=== PATIENT | female | born 1945 | race Caucasian/White ===

== ENCOUNTER 2017-10-04 15:50 | Emergency (ER) | payer OTHER, MEDICAID ==
[~2017-10-04] VITALS: Ht 170.2 cm; Wt 79.4 kg
[~2017-10-04 15:50] MED LIST: ALBUAER3 IN; ASPI81CH43 PO; ATOR20TA50; BUPR150T6; CARV3.1240; CEL100T PO; FLUO-125; PANTOPRAZOLE PO; SOVALDI PO; TRAM-297 PO; [UNRECOGNIZED DRUG - CODE]
[2017-10-04] MEDS ORDERED: SODIUM CHLORIDE 0.9% 1,000 ML IVB ONE (17:10)
[2017-10-04 18:42] LABS: INR 1.02 (0.9-1.15); Partial Thromboplastin Time 27.5 sec (22.64-33.71); Prothrombin Time 11.1 sec (9.37-12.3)
[2017-10-04 18:46] LABS: Basophils # (auto) 0.1 uL; Eosinophils # (auto) 0.1 uL; Eosinophils % (auto) 1.8 % (0.0-7.0); Hemoglobin 13.5 g/dL (12.2-16.2); Lymphocytes # (auto) 1.5 uL; Lymphocytes % (auto) 28.3 % (10.0-50.0); Mean Corpuscular Hemoglobin 30.6 pg (28.0-32.0); Mean Corpuscular Hgb Conc. 32.9 g/dL (32.0-36.0); Mean Corpuscular Volume 93.1 fL (80.0-100.0); Monocytes # (auto) 0.4 uL; Monocytes % (auto) 7.8 % (0.0-12.0); Neutrophils # (auto) 3.2 uL; Neutrophils % (auto) 61.1 % (37.0-80.0); Nucleated Red Blood Cells % 0.1 %; Platelet Count (auto) 165 10^3/uL (140-450); Red Cell Distribution Width 15.2 % (11.8-14.3); White Blood Cell 5.2 10^3/uL (4.4-10.8)
[2017-10-04 18:58] LABS: Alanine Aminotransferase 25 U/L (13-56); Albumin 3.6 g/dL (3.4-5.0); Alkaline Phosphatase 78 U/L (45-117); Anion Gap 9 (5-15); Aspartate Aminotransferase 28 U/L (15-37); BUN/Creatinine Ratio 22.9; Bilirubin, Total 0.2 mg/dL (0.2-1.0); Blood Urea Nitrogen 22 mg/dL (7-18); Carbon Dioxide 24 mmol/L (21-32); Chloride 108 mmol/L (98-107); GFR African American 73 mL/min; GFR Non-African American 61 mL/min; Glucose 101 mg/dL (74-106); Magnesium 2.1 mg/dL (1.6-2.6); Potassium 3.7 mmol/L (3.5-5.1); Sodium 141 mmol/L (136-145); Total Protein 7.2 g/dL (6.4-8.2)
[2017-10-04 20:08] VITALS: BP 154/94
== END 2017-10-04 20:12 | disposition home or self-care (01) ==
LOC: ER 15:50 → EDBD 15:50 → ER 20:10
DX: R07.89 Other chest pain (principal); F10.129 Alcohol abuse with intoxication, unspecified; E11.9 Type 2 diabetes mellitus without complications; I11.0 Hypertensive heart disease with heart failure; I50.9 Heart failure, unspecified; K21.9 Gastro-esophageal reflux disease without esophagitis; J44.9 Chronic obstructive pulmonary disease, unspecified; E78.5 Hyperlipidemia, unspecified; I25.2 Old myocardial infarction; Z85.71 Personal history of Hodgkin lymphoma; Z86.73 Personal history of transient ischemic attack (TIA), and cerebral infarction without residual deficits; Z79.82 Long term (current) use of aspirin; Z95.810 Presence of automatic (implantable) cardiac defibrillator; Z88.2 Allergy status to sulfonamides; Z88.6 Allergy status to analgesic agent
CPT/HCPCS: 36415; 71045; 80053; 80320; 83735; 83880; 84484; 85025; 85610; 85730; 93005; 94761

== ENCOUNTER 2018-11-05 11:05 | Inpatient (IN) | payer OTHER, MEDICAID | END 2018-11-12 21:40 | disposition home health service (06) | LOC: TELE-WESTW 11-10 14:21 → ER 11:05 → TELE 18:18 → TELE-WESTW 20:17 | DX: A41.9 Sepsis, unspecified organism (principal); E43 Unspecified severe protein-calorie malnutrition; J44.1 Chronic obstructive pulmonary disease with (acute) exacerbation; N39.0 Urinary tract infection, site not specified; I11.0 Hypertensive heart disease with heart failure; I50.9 Heart failure, unspecified; Z85.71 Personal history of Hodgkin lymphoma; E78.5 Hyperlipidemia, unspecified; Z86.73 Personal history of transient ischemic attack (TIA), and cerebral infarction without residual deficits; R55 Syncope and collapse; E11.9 Type 2 diabetes mellitus without complications; F32.9 Major depressive disorder, single episode, unspecified; F41.9 Anxiety disorder, unspecified; I25.2 Old myocardial infarction; I25.10 Atherosclerotic heart disease of native coronary artery without angina pectoris; Z95.810 Presence of automatic (implantable) cardiac defibrillator ==

== ENCOUNTER 2019-05-10 12:27 | Inpatient (IN) | payer OTHER, MEDICAID ==
[~2019-05-10] VITALS: Ht 152.4 cm; Wt 63.5 kg
[~2019-05-10 12:27] MED LIST changes: -ALBUAER3 IN; +ASPI-231 PO; -ASPI81CH43 PO; +ATOR20TA PO; -ATOR20TA50; -BUPR150T6; +BUPR75TA9 PO; -CARV3.1240; +CARV6.25 PO; -CEL100T PO; +ESCI5TAB PO; -FLUO-125; +FURO20TA3 PO; +HYDR-531 PO; +LOSA25TA38 PO; +OMEP20TA PO; -PANTOPRAZOLE PO; -SOVALDI PO; +TIZA2CAP12 PO; -TRAM-297 PO; +TRAZ150T79 PO
[2019-05-10] MEDS ORDERED: methylPREDNISolone SOD SUCC 125 MG/2 ML VL IV ONE (12:45)
[2019-05-10] MEDS ORDERED: IPRATROPIUM BROM 0.5 MG/2.5ML INH SOL NEB ONE (12:45)
[2019-05-10] MEDS ORDERED: ALBUTEROL SULF 2.5 MG/0.5ML(0.5%) NEB SOLN NEB ONE (12:45)
[2019-05-10 13:53] LABS: Basophils # (auto) 0.1 uL; Basophils % (auto) 0.8 % (0.0-2.0); Eosinophils # (auto) 0.2 uL; Hematocrit 39.5 % (36.0-46.0); Hemoglobin 13.8 g/dL (12.2-16.2); Lymphocytes # (auto) 1.4 uL; Lymphocytes % (auto) 17.6 % (10.0-50.0); Mean Corpuscular Hemoglobin 31.1 pg (28.0-32.0); Mean Corpuscular Hgb Conc. 34.9 g/dL (32.0-36.0); Monocytes # (auto) 0.8 uL; Monocytes % (auto) 10.2 % (0.0-12.0); Neutrophils # (auto) 5.5 uL; Neutrophils % (auto) 69.4 % (37.0-80.0); Nucleated Red Blood Cells % 0.3 %; Platelet Count (auto) 143 10^3/uL (140-450); Red Blood Cells 4.44 10^6/uL (4.0-5.20)
[2019-05-10 14:10] LABS: Albumin 3.7 g/dL (3.4-5.0); Anion Gap 4 (5-15); Blood Urea Nitrogen 21 mg/dL (7-18); Calcium 10.2 mg/dL (8.5-10.1); Carbon Dioxide 34 mmol/L (21-32); Chloride 104 mmol/L (98-107); Glucose 99 mg/dL (74-106); Potassium 3.5 mmol/L (3.5-5.1); Sodium 142 mmol/L (136-145)
[2019-05-10 14:12] LABS: INR 1.09 (0.9-1.15); Partial Thromboplastin Time 28.8 sec (23.64-32.05)
[2019-05-10 14:15] LABS: Alanine Aminotransferase 18 U/L (13-56); Alkaline Phosphatase 77 U/L (45-117); Aspartate Aminotransferase 18 U/L (15-37); BUN/Creatinine Ratio 15.9; Bilirubin, Total 0.5 mg/dL (0.2-1.0); GFR African American 51 mL/min; GFR Non-African American 42 mL/min; Total Protein 7.2 g/dL (6.4-8.2)
[2019-05-10] MEDS ORDERED: NITROGLYCERIN 0.4 MG SL TAB SL PRN (16:30)
[2019-05-10] MEDS ORDERED: NITROGLYCERIN 0.2MG/HR TOPICAL PATCH TD ONE (16:30)
[2019-05-10] MEDS ORDERED: MORPHINE SULF INJ 2 MG/ML SYRINGE 1ML IV PRN (16:30)
[2019-05-10 17:15] VITALS: BP 121/86
--- NOTE | 2019-05-10 17:30 | NUR ---
PT ADMITTED TO RM 248A PER GURNEY FROM ER ACCOMPANIED BY ER TRANSPORT WITH C/O SOB X 2 DAYS. PT NOTED TO BE AAOX4 AND REQUIRED ASSIST IN AMBULATING. PT ON TELE#24 PACED 75 PT ORIENTATED TO STAFF, UNIT AND ROUTINE. ADMISSION ASSESSMENT DONE AND CHARTED. PLAN OF CARE, MEDS, TREATMENTS AND SAFETY DISCUSSED WITH PT AND PT VERBALIZED UNDERSTANDING. PT PUT ON O2 AT 3L/NC PT C/O SOB. WILL CONTINUE TO MONITOR PT ENDORSE PT TO INCOMING RN.
[2019-05-10 17:55] VITALS: BP 140/64
[2019-05-10] MEDS ORDERED: ALBUTEROL SULF 2.5 MG/0.5ML(0.5%) NEB SOLN NEB SCH (18:00)
[2019-05-10] MEDS: HYDROcodone-ACET 10/325MG TAB PO PRN (18:32)
[2019-05-10] MEDS: IPRATROPIUM BROM 0.5 MG/2.5ML INH SOL NEB SCH (19:02)
[2019-05-10] MEDS: BUDESONIDE (INHALATION) 0.5 MG/2 ML NEB NEB SCH (19:02)
[2019-05-10] MEDS: LEVALBUTEROL HCL 1.25 MG/3 ML NEB NEB SCH (19:02)
--- NOTE | 2019-05-10 19:02 | NUR ---
RT NOTE PT WAS SEEN BY RT FOR HHN TX. PT TOLERATES WELL VIA MASK. NO ADVERSE REACTION NOTED. CONT ORDERED Addendum: 05/10/19 at 1911 by Dionne Snow RT Amended: Links added.
--- NOTE | 2019-05-10 19:45 | NUR ---
RECEIVED PATIENT IN BED, AAOX4. NO DISTRESS NOTED. AFEBRILE. DENIES PAIN. MILD SOB NOTED ON EXERTION. WHEEZES NOTED ON LUNG BASES. INTRODUCED MYSELF TO THE PATIENT. ORIENTATION GIVEN. POCS DISCUSSED WITH PATIENT AND SHOWED UNDERSTANDING. BED KEPT ON LOWEST POSITION. SIDE RAILS UP. CALL LIGHT/TABLE IN REACH. KEPT COMFORTABLE.
[2019-05-10] MEDS: CARVEDILOL 3.125 MG TAB PO SCH (20:23)
[2019-05-10] MEDS: ATORVASTATIN 20 MG TAB PO SCH (20:23)
[2019-05-10] MEDS ORDERED: TRAM50TA2 PO (20:24)
[2019-05-10 21:41] VITALS: BP 116/95
--- NOTE | 2019-05-10 23:00 | NUR ---
PATIENT IS VERY ANXIOUS AND WANTED A SLEEPING PILL. PAGED MD. AWAITING CALL BACK.
[2019-05-11] MEDS: LEVALBUTEROL HCL 1.25 MG/3 ML NEB NEB SCH ×6 (00:13→19:07)
[2019-05-11] MEDS: IPRATROPIUM BROM 0.5 MG/2.5ML INH SOL NEB SCH ×6 (00:13→19:07)
--- NOTE | 2019-05-11 00:14 | NUR ---
RT NOTE PT WAS SEEN BY RT FOR HHN TX. PT IS AWAKE BUT IS REQUESTING TO HOLD TX UNTIL MORNING SO THAT SHE CAN GO TO SLEEP. NO SOB OR DISTRESS NOTED. HR 71, RR 18, BS CLEAR/DIM, POX 88% ON ROOM AIR, PLACED PT BACK ON 3L NASAL CANNULA. PT REQUESTING CRACKERS AT THIS TIME WELL. EL TEJADA MADE AWARE OF PT REQUEST FOR CRACKERS AND PT REFUSAL OF TX AT THIS TIME. RN WILL CALL IF PT CHANGES HER MIND. MEDICATION WAS RETURNED TO [facility]. CONT ORDERED Addendum: 05/11/19 at 0024 by Dionne Snow RT Amended: Links added.
[2019-05-11 05:33] VITALS: BP 125/87
[2019-05-11] MEDS: BUDESONIDE (INHALATION) 0.5 MG/2 ML NEB NEB SCH ×2 (06:09→18:57)
--- NOTE | 2019-05-11 06:12 | NUR ---
ON BED, ASLEEP. STABLE. NO DISTRESS NOTED. FOR MORE CARE AND MANAGEMENT.
--- NOTE | 2019-05-11 07:45 | NUR ---
INITIAL ASSESSMENT FINDS ALERT TALKATIVE. C/O SORENESS IN CHEST AND FREQUENT COUGH. EXPIRATORY WHEEZING HEARD. LOWER EXTREMITIES FREE OF EDEMA. STRONG PEDAL PULSES. RESPIRATIONS EASY, NON LABORED. 3L NC. EXPLAINED POC. REASSURANCE PROVIDED. Addendum: 05/11/19 at 0829 by Casper Arzate RN LAST ENTRY IN ERROR AT 0822. ENTERED ON WRONG PTS CHART. INITIAL ASSESSMENT FINDS ALERT CALM APPROPRIATE. LUNG SOUNDS CLEAR. C/O SORENESS AROUND CHEST WALL WITH FREQUENT COUGHING. STATES SHE HAS HISTORY OF SEASONAL BRONCHITIS AT THIS TIME OF THE YEAR. LOWER EXTREMITIES HAVE PITTING EDEMA. PEDAL PULSES PRESENT. EXPLAINED TROPONIN LEVELS. POC. PENDING ECHO PLANNED. REASSURED GOAL IS TO DC HOME WHEN APPROPRIATE.
[2019-05-11 09:00] VITALS: BP 141/99
--- NOTE | 2019-05-11 09:49 | NUR ---
RESTFUL NO DISTRESS.
--- NOTE | 2019-05-11 10:15 | NUR ---
C/O DIFF BREATHING. AUDIBLE EXPIRATORY WHEEZING HEARD. RT PAGED AND RESPONDS TO ROOM. HAS BEEN UP TO BR WITH OUT O2. SOB AT REST UNABLE TO COMPLETE SENTENCE. OS SAT 92%. UPPER AIRWAY CONSTRICTED. RT STATES NO PRN RESCUE TREATMENTS ORDERED. HEART SURGEON HOSPITALIST PAGED. DR. RAYA COMES TO BEDSIDE. ORDERS IV SOLUMEDROL NOW.
[2019-05-11] MEDS ORDERED: methylPREDNISolone SOD SUCC 125 MG/2 ML VL IV ONE (10:30)
--- NOTE | 2019-05-11 10:36 | NUR ---
BEDSIDE ECHO IN PROGRESS. C/O CHEST PAIN RADIATING DOWN HER ARM. STATES IT FEELS LIKE HEART PACEMAKER IS NOT WORKING. REASSURANCE NEEDED AND GIVEN CARDIAC RHYTHM SHOWS AV PACED. 70.
[2019-05-11] MEDS ORDERED: LEVALBUTEROL HCL 1.25 MG/3 ML NEB NEB PRN (10:45)
[2019-05-11] MEDS ORDERED: IPRATROPIUM BROM 0.5 MG/2.5ML INH SOL NEB PRN (10:45)
[2019-05-11] MEDS: HYDROcodone-ACET 10/325MG TAB PO PRN (11:18)
[2019-05-11] MEDS: ESCITALOPRAM OXALATE 5 MG PO SCH (11:21)
[2019-05-11] MEDS: LOSARTAN POTASSIUM 25 MG TAB PO SCH (11:22)
[2019-05-11] MEDS: ASPirin-EC 81 mg tab PO SCH (11:24)
[2019-05-11] MEDS: CARVEDILOL 3.125 MG TAB PO SCH ×2 (11:24→20:56)
[2019-05-11] MEDS: FUROSEMIDE 20 MG TAB PO SCH (11:25)
[2019-05-11] MEDS: ENOXAPARIN SOD 40 MG/0.4 ML SYRINGE SC SCH (11:25)
[2019-05-11] MEDS: PANTOPRAZOLE 40 MG TAB PO SCH (11:26)
[2019-05-11] MEDS: buPROPion HCL 75 MG TAB PO SCH (11:26)
[2019-05-11] MEDS: NITROGLYCERIN 0.2MG/HR TOPICAL PATCH TD SCH (11:27)
--- NOTE | 2019-05-11 12:13 | NUR ---
DOES NOT TOLERATE ACTIVITY UP TO BR
[2019-05-11 13:00] VITALS: BP 126/64
[2019-05-11] MEDS: SODIUM CHLORIDE 0.9% 1,000 ML IV SCH (13:13)
--- NOTE | 2019-05-11 13:15 | NUR ---
DR. RAYA CALLS AFTER MULTIPLE ATTEMPTS TO CONTACT HER. MADE AWARE OF COUGHING EPISODES THAT RESULT IN UPPER AIRWAY CLOSING. NEW ORDERS GIVEN. IF PT DOES NOT RESPOND AND CONTINUES TO BE SYMPTOMATIC TRANSFER TO [facility].
[2019-05-11] MEDS ORDERED: LORazepam 2MG/ML-1ML VIAL IM ONE (13:30)
[2019-05-11] MEDS ORDERED: CLOPIDOGREL BISULFATE 75 MG TAB PO ONE (15:00)
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
[2019-05-11 17:00] VITALS: BP 125/56
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
--- NOTE | 2019-05-11 19:07 | NUR ---
Respiratory note: PT REFUSE NEXT SCHEDULED MED NEB AT THIS TIME
--- NOTE | 2019-05-11 19:25 | NUR ---
Opening Shift Note Assumed care of patient, awake and alert. No S/S of distress/SOB or pain. Bed in lowest locked position, side rails up x2, call light within reach. Instructed on POC and to call for assist PRN, will continue to monitor for changes Q1hr and PRN.
[2019-05-11] MEDS: ATORVASTATIN 20 MG TAB PO SCH (20:55)
[2019-05-11] MEDS: methylPREDNISolone SOD SUCC 40 MG/ML VL IV SCH (20:55)
[2019-05-11] MEDS: THROAT LOZENGES(CEPASTAT) MT PRN ×2 (20:57→23:01)
[2019-05-11 22:00] VITALS: BP 140/76
--- NOTE | 2019-05-11 22:00 | NUR ---
Hospitalist Paged Patient takes Trazodone 150 mg PO at hour of sleep at home for insomnia. Patient requesting continuation of this medication to help her sleep. No orders for this medication or any sleeping medication noted at this time. call center professional hospitalist paged, awaiting call back at this time.
--- NOTE | 2019-05-11 22:38 | NUR ---
Hospitalist Returned Page body recall instructor hospitalist Sancho Wade FROG FARMER returned page, new order received for Temazepam 15 mg PO one time dose. Order read back and verified, will implement as ordered and continue to monitor.
[2019-05-11] MEDS ORDERED: TEMAZEPAM 15 MG CAP PO ONE ×2 (22:45)
[2019-05-12] MEDS: THROAT LOZENGES(CEPASTAT) MT PRN ×2 (01:32→03:45)
[2019-05-12] MEDS: HYDROcodone-ACET 10/325MG TAB PO PRN ×2 (01:32→16:49)
[2019-05-12] MEDS: methylPREDNISolone SOD SUCC 40 MG/ML VL IV SCH (02:42)
[2019-05-12] MEDS: SODIUM CHLORIDE 0.9% 1,000 ML IV SCH (02:49)
[2019-05-12 05:00] VITALS: BP 150/69
[2019-05-12 06:41] LABS: Basophils # (auto) 0 uL; Basophils % (auto) 0.1 % (0.0-2.0); Eosinophils # (auto) 0 uL; Hematocrit 34.5 % (36.0-46.0); Hemoglobin 11.6 g/dL (12.2-16.2); Lymphocytes # (auto) 0.6 uL; Lymphocytes % (auto) 4.2 % (10.0-50.0); Mean Corpuscular Hemoglobin 30.8 pg (28.0-32.0); Mean Corpuscular Hgb Conc. 33.8 g/dL (32.0-36.0); Mean Corpuscular Volume 91.2 fL (80.0-100.0); Monocytes # (auto) 0.5 uL; Monocytes % (auto) 3.4 % (0.0-12.0); Neutrophils # (auto) 12.5 uL; Neutrophils % (auto) 92.3 % (37.0-80.0); Nucleated Red Blood Cells % 0.1 %; Platelet Count (auto) 123 10^3/uL (140-450); Red Blood Cells 3.78 10^6/uL (4.0-5.20); Red Cell Distribution Width 15.1 % (11.8-14.3); White Blood Cell 13.6 10^3/uL (4.4-10.8)
[2019-05-12] MEDS: IPRATROPIUM BROM 0.5 MG/2.5ML INH SOL NEB SCH ×4 (06:44→20:36)
[2019-05-12] MEDS: BUDESONIDE (INHALATION) 0.5 MG/2 ML NEB NEB SCH ×3 (06:44→20:36)
[2019-05-12] MEDS: LEVALBUTEROL HCL 1.25 MG/3 ML NEB NEB SCH ×4 (06:44→20:36)
[2019-05-12 06:47] LABS: Chloride 104 mmol/L (98-107); Sodium 139 mmol/L (136-145)
[2019-05-12 06:57] LABS: Alanine Aminotransferase 22 U/L (13-56); Albumin 3.2 g/dL (3.4-5.0); Alkaline Phosphatase 64 U/L (45-117); Anion Gap 5 (5-15); Aspartate Aminotransferase 22 U/L (15-37); BUN/Creatinine Ratio 24.3; Bilirubin, Total 0.2 mg/dL (0.2-1.0); Blood Urea Nitrogen 25 mg/dL (7-18); Calcium 10.5 mg/dL (8.5-10.1); Carbon Dioxide 30 mmol/L (21-32); Cholesterol 100 mg/dL (< 200); GFR African American 67 mL/min; GFR Non-African American 56 mL/min; Glucose 154 mg/dL (74-106); HDL Cholesterol 60 mg/dL (40-59); LDL Cholesterol 35 mg/dL (< 100); Magnesium 1.9 mg/dL (1.6-2.6); Total Protein 6.4 g/dL (6.4-8.2); Triglycerides 71 mg/dL (< 150)
--- NOTE | 2019-05-12 07:30 | NUR ---
Opening Shift Note Assumed care of patient, awake and alert. No S/S of distress/SOB or pain. Instructed on POC and to call for assist PRN, will continue to monitor for changes Q1hr and PRN.
--- NOTE | 2019-05-12 07:40 | NUR ---
Closing Note Patient lying in bed, awake and alert. Bed in lowest locked position, side rails up x2, call light within reach. No s/s of distress. Care endorsed to dayshift RN.
--- NOTE | 2019-05-12 08:00 | NUR ---
Dr. Juarez in to see patient as hospitalist.
[2019-05-12] MEDS: LORazepam 2MG/ML-1ML VIAL IV PRN ×2 (08:04→20:24)
[2019-05-12] MEDS ORDERED: MAGNESIUM SULFATE 1GM/100ML 100 ML IV ONE (08:15)
[2019-05-12 08:59] VITALS: BP 153/83
[2019-05-12] MEDS: ENOXAPARIN SOD 40 MG/0.4 ML SYRINGE SC SCH (10:00)
[2019-05-12] MEDS: NITROGLYCERIN 0.2MG/HR TOPICAL PATCH TD SCH (10:00)
[2019-05-12] MEDS: ESCITALOPRAM OXALATE 5 MG PO SCH (10:00)
[2019-05-12] MEDS: ASPirin-EC 81 mg tab PO SCH (10:00)
[2019-05-12] MEDS: PANTOPRAZOLE 40 MG TAB PO SCH (10:01)
[2019-05-12] MEDS: FUROSEMIDE 20 MG TAB PO SCH (10:01)
[2019-05-12] MEDS: CLOPIDOGREL BISULFATE 75 MG TAB PO SCH (10:01)
[2019-05-12] MEDS: CARVEDILOL 3.125 MG TAB PO SCH ×2 (10:01→22:23)
[2019-05-12] MEDS: LOSARTAN POTASSIUM 25 MG TAB PO SCH (10:02)
[2019-05-12] MEDS: buPROPion HCL 75 MG TAB PO SCH (10:02)
[2019-05-12] MEDS: methylPREDNISolone SOD SUCC 125 MG/2 ML VL IV SCH ×2 (10:47→16:48)
[2019-05-12] MEDS: guaiFENesin-DM 100/10mg/5ml SYR PO PRN ×2 (11:17→19:40)
[2019-05-12 13:10] VITALS: BP 159/81
--- NOTE | 2019-05-12 16:00 | NUR ---
IV right hand out. IV restart attempted X 2 without success. Charge nurse, dave Snell.
--- NOTE | 2019-05-12 16:30 | NUR ---
IV insertion IV access obtained, via clean sterile technique by inserting 22 gauge catheter at right wrist after 2 attempts. IV secured properly. No trauma to site. Patient tolerated procedure well. IV started by Pinky Christianson RN.
[2019-05-12 16:34] VITALS: BP 153/77
--- NOTE | 2019-05-12 19:30 | NUR ---
Opening Shift Note Assumed care of patient, awake and alert. No S/S of distress/SOB. Patient is still c/o chronic pain 6 of 10 and occasional cough. Instructed on POC and to call for assist PRN, will continue to monitor for changes Q1hr and PRN.
[2019-05-12 21:44] VITALS: BP 160/74
[2019-05-12] MEDS: ATORVASTATIN 20 MG TAB PO SCH (22:24)
[2019-05-12] MEDS: traZODone HCL 50 MG TAB PO SCH (22:24)
[2019-05-13] VITALS (7 sets, daily range): BP systolic 142–165; BP diastolic 66–94
[2019-05-13] MEDS: SODIUM CHLORIDE 0.9% 1,000 ML IV SCH ×2 (00:26→12:58)
[2019-05-13] MEDS: IPRATROPIUM BROM 0.5 MG/2.5ML INH SOL NEB SCH ×4 (00:39→19:06)
[2019-05-13] MEDS: LEVALBUTEROL HCL 1.25 MG/3 ML NEB NEB SCH ×4 (00:40→19:06)
[2019-05-13] MEDS: methylPREDNISolone SOD SUCC 125 MG/2 ML VL IV SCH ×3 (01:40→16:33)
[2019-05-13] MEDS: HYDROcodone-ACET 10/325MG TAB PO PRN ×3 (03:04→19:51)
[2019-05-13] MEDS: guaiFENesin-DM 100/10mg/5ml SYR PO PRN ×2 (03:04→16:48)
[2019-05-13 06:44] LABS: Hematocrit 33.4 % (36.0-46.0); Hemoglobin 11.3 g/dL (12.2-16.2); Mean Corpuscular Hemoglobin 31.1 pg (28.0-32.0); Mean Corpuscular Hgb Conc. 33.9 g/dL (32.0-36.0); Mean Corpuscular Volume 91.6 fL (80.0-100.0); Platelet Count (auto) 120 10^3/uL (140-450); Red Blood Cells 3.65 10^6/uL (4.0-5.20); Red Cell Distribution Width 15.1 % (11.8-14.3); White Blood Cell 11.2 10^3/uL (4.4-10.8)
[2019-05-13 07:02] LABS: Calcium 9.8 mg/dL (8.5-10.1); Potassium 3.4 mmol/L (3.5-5.1)
[2019-05-13 07:04] LABS: BUN/Creatinine Ratio 24.5
[2019-05-13] MEDS: BUDESONIDE (INHALATION) 0.5 MG/2 ML NEB NEB SCH ×2 (07:05→19:06)
[2019-05-13 07:08] LABS: Band Neutrophils % (manual) 0; Basophils % (manual) 0 (0.0-2.0); Blast Cells 0; Eosinophils % (manual) 0 (0-7); Myelocytes % 0; Promyelocytes % 0; Reactive Lymphocytes 0
--- NOTE | 2019-05-13 07:42 | NUR ---
OPENING NOTE Assumed care of patient from NOC RNDillon. Patient awake and alert with no S/S of distress/SOB. C/O generalized pain 6/10 on adult pain scale, will administer prn pain medications as ordered. Instructed on POC and to call for assist PRN, verbalized understanding. Bed in lowest, locked position with side rails up x2. Fall precautions in place and call light within reach. Will continue to monitor for changes Q1hr and PRN.
[2019-05-13 07:43] LABS: Lymphocytes % (manual) 3 (10.0-50.0); Metamyelocytes % 1; Monocytes % (manual) 5 (0-12)
[2019-05-13] MEDS: ESCITALOPRAM OXALATE 5 MG PO SCH (09:43)
[2019-05-13] MEDS: ASPirin-EC 81 mg tab PO SCH (09:44)
[2019-05-13] MEDS: LOSARTAN POTASSIUM 25 MG TAB PO SCH (09:44)
[2019-05-13] MEDS: CARVEDILOL 3.125 MG TAB PO SCH (09:44)
[2019-05-13] MEDS: NITROGLYCERIN 0.2MG/HR TOPICAL PATCH TD SCH (09:45)
[2019-05-13] MEDS: PANTOPRAZOLE 40 MG TAB PO SCH (09:45)
[2019-05-13] MEDS: FUROSEMIDE 20 MG TAB PO SCH (09:45)
[2019-05-13] MEDS: buPROPion HCL 75 MG TAB PO SCH (09:45)
[2019-05-13] MEDS: ENOXAPARIN SOD 40 MG/0.4 ML SYRINGE SC SCH (09:45)
[2019-05-13] MEDS: CLOPIDOGREL BISULFATE 75 MG TAB PO SCH (09:45)
--- NOTE | 2019-05-13 11:22 | NUR ---
CARDIO Paged commissioning manager distribution accounting clerk per Dr. Juarez's request regarding Pacemaker interrogation.
[2019-05-13] MEDS ORDERED: LEVOFLOXACIN 500MG 100 ML IV ONE (11:45)
[2019-05-13] MEDS ORDERED: POTASSIUM CHL 20 Meq TABLET PO ONE (11:45)
[2019-05-13] MEDS: LORazepam 2MG/ML-1ML VIAL IV PRN (12:57)
--- NOTE | 2019-05-13 16:15 | NUR ---
PAGED Patient c/o right lower quadrant pain that radiates to umbilicus. States pain 10/10 on adult pain scale, "it's been hurting for a couple of days, that's why I haven't been able to poop...it hurts too bad to push". Dr. Juarez paged, awaiting call back.
[2019-05-13] MEDS: hydrALAZINE HCL 20 MG/ML VL IV PRN (16:34)
--- NOTE | 2019-05-13 16:35 | NUR ---
IV Patient's IV infiltrated, left room to gather supplies to remove IV and reentered to find the IV laying on the patient's bed. Patient states "it just came out when I tried to get up", catheter intact and pressure dressing was applied. New IV access obtained, via clean sterile technique by inserting 22 gauge catheter at right forearm after 1 attempt. IV secured properly. No trauma to site. Patient tolerated well.
--- NOTE | 2019-05-13 16:42 | NUR ---
PAGED Re-paged Dr. Juarez regarding abdominal pain, awaiting call back.
--- NOTE | 2019-05-13 16:58 | NUR ---
Attempted PT treatment. Pt refused stating she has too much pain in her abdomen and she was just out of bed to go to the bathroom so she does not want to move anymore. Will attempt again tomorrow.
--- NOTE | 2019-05-13 17:10 | NUR ---
PAGED ton container shipper hospitalist paged regarding abdominal pain, awaiting call back.
--- NOTE | 2019-05-13 17:22 | NUR ---
AWARE Received call back from virtualization consultant hospitalist, Eusebio Estrada DIRECT SELLING COUNSELOR, new orders received.
[2019-05-13] MEDS: LACTULOSE 20Gm/30ML SOLN PO PRN (17:44)
--- NOTE | 2019-05-13 18:27 | NUR ---
AWARE orthopedically impaired teacher hospitalist, Eusebio Estrada DRESSMAKER OR TAILOR, aware of abdominal CT results. No new orders at this time.
--- NOTE | 2019-05-13 20:00 | NUR ---
Opening Shift Note Assumed care of patient, awake and alert. Patient complained of back, bilateral knee and abdominal pain 8/10 on 1-10 pain scale. Patient medicated with Camby as ordered. Instructed on POC and to call for assist PRN, will continue to monitor for changes Q1hr and PRN. Call light in reach bed in low position.
[2019-05-13] MEDS: traZODone HCL 50 MG TAB PO SCH (21:04)
[2019-05-13] MEDS: DOCUSATE SOD 100 MG CAP PO SCH (21:05)
[2019-05-13] MEDS: ATORVASTATIN 20 MG TAB PO SCH (21:05)
[2019-05-13] MEDS: CARVEDILOL 12.5 MG TAB PO SCH (21:07)
[2019-05-14] MEDS: LEVALBUTEROL HCL 1.25 MG/3 ML NEB NEB SCH ×4 (00:34→19:12)
[2019-05-14] MEDS: IPRATROPIUM BROM 0.5 MG/2.5ML INH SOL NEB SCH ×4 (00:35→19:12)
[2019-05-14] MEDS: methylPREDNISolone SOD SUCC 125 MG/2 ML VL IV SCH ×2 (00:37→10:42)
[2019-05-14] MEDS: guaiFENesin-DM 100/10mg/5ml SYR PO PRN (00:38)
[2019-05-14] MEDS: HYDROcodone-ACET 10/325MG TAB PO PRN ×3 (00:55→20:30)
--- NOTE | 2019-05-14 01:35 | NUR ---
PT SEEN FOR SCHEDULED NEB TX TONIGHT AND BOTH TIMES PT WAS NOT WEARING 4L NC WITH SPO2 86-88%. PT STATED THAT SHE HAD TO GO TO THE REST ROOM. PT PLACED BACK ON NC, SPO2 98%.
[2019-05-14 05:00] VITALS: BP 144/80
[2019-05-14] MEDS: SODIUM CHLORIDE 0.9% 1,000 ML IV SCH ×2 (05:43→22:00)
[2019-05-14] MEDS: BUDESONIDE (INHALATION) 0.5 MG/2 ML NEB NEB SCH ×2 (06:28→19:12)
--- NOTE | 2019-05-14 06:28 | NUR ---
RT NOTE: WENT TO PTS ROOM TO ADMINISTER BREATHING TX, PT STATED THAT SHE DID NOT WANT THE TX AT THIS TIME AND THAT HER BREATHING WAS FINE, NO S/S OF SOB. HR 68, RR 18, SPO2 94% ON 5L NC. WILL CONTINUE TO MONITOR PT.
[2019-05-14 06:35] LABS: Basophils # (auto) 0.1 uL; Basophils % (auto) 0.4 % (0.0-2.0); Eosinophils # (auto) 0 uL; Hematocrit 33.6 % (36.0-46.0); Hemoglobin 11.5 g/dL (12.2-16.2); Lymphocytes # (auto) 0.6 uL; Lymphocytes % (auto) 5.2 % (10.0-50.0); Mean Corpuscular Hemoglobin 30.8 pg (28.0-32.0); Mean Corpuscular Hgb Conc. 34.3 g/dL (32.0-36.0); Mean Corpuscular Volume 89.8 fL (80.0-100.0); Monocytes # (auto) 0.7 uL; Monocytes % (auto) 5.9 % (0.0-12.0); Neutrophils # (auto) 10.3 uL; Neutrophils % (auto) 88.5 % (37.0-80.0); Platelet Count (auto) 107 10^3/uL (140-450); Red Blood Cells 3.75 10^6/uL (4.0-5.20); Red Cell Distribution Width 15.4 % (11.8-14.3); White Blood Cell 11.7 10^3/uL (4.4-10.8)
--- NOTE | 2019-05-14 06:53 | NUR ---
Closing Note: Patient resting comfortably. No acute distress noted.
[2019-05-14 07:05] LABS: Potassium 3.4 mmol/L (3.5-5.1)
[2019-05-14 07:09] LABS: BUN/Creatinine Ratio 21.2; Calcium 10.2 mg/dL (8.5-10.1)
--- NOTE | 2019-05-14 07:21 | NUR ---
OPENING NOTE Assumed care of patient from NOC RN. Patient resting in bed with eyes closed, even rise and fall of chest noted. No S/S of distress/SOB or pain. Bed in lowest, locked position with side rails up x2. Fall precautions in place and call light within reach. Will continue to monitor for changes Q1hr and PRN.
[2019-05-14 09:00] VITALS: BP 156/82
[2019-05-14] MEDS ORDERED: LEVOFLOXACIN 500MG 100 ML IV SCH (10:00)
[2019-05-14] MEDS: ESCITALOPRAM OXALATE 5 MG PO SCH (10:42)
[2019-05-14] MEDS: DOCUSATE SOD 100 MG CAP PO SCH ×2 (10:42→22:04)
[2019-05-14] MEDS: LOSARTAN POTASSIUM 25 MG TAB PO SCH (10:43)
[2019-05-14] MEDS: ASPirin-EC 81 mg tab PO SCH (10:43)
[2019-05-14] MEDS: FUROSEMIDE 20 MG TAB PO SCH (10:43)
[2019-05-14] MEDS: CARVEDILOL 12.5 MG TAB PO SCH ×2 (10:43→22:09)
[2019-05-14] MEDS: buPROPion HCL 75 MG TAB PO SCH (10:44)
[2019-05-14] MEDS: ENOXAPARIN SOD 40 MG/0.4 ML SYRINGE SC SCH (10:44)
[2019-05-14] MEDS: CLOPIDOGREL BISULFATE 75 MG TAB PO SCH (10:44)
[2019-05-14] MEDS: PANTOPRAZOLE 40 MG TAB PO SCH (10:44)
[2019-05-14] MEDS: LACTULOSE 20Gm/30ML SOLN PO PRN (10:44)
--- NOTE | 2019-05-14 12:10 | NUR ---
Nutrition Assessment Notes please see attached link for complete assessment Est. Needs BW 64 k-1600kcal (23-25 kcal/kgBW), 63-70gms pro (1.0-1.1 gms/kgBW). Will continue to monitor pertinent labs and reassess nutrient need prn Addendum: 05/14/19 at [address] Amended: Links added.
--- NOTE | 2019-05-14 12:30 | NUR ---
RT NOTE: WENT TO PTS ROOM TO ADMINISTER BREATHING TX, PT STATED THAT SHE DID NOT WANT THE TX AT THIS TIME AND THAT HER BREATHING WAS FINE, NO S/S OF SOB. RN MADE AWARE OF REFUSAL. HR 69, RR 18, SPO2 9% ON 4L NC. WILL CONTINUE TO MONITOR PT.
--- NOTE | 2019-05-14 12:38 | NUR ---
RT Per RT, Boni, patient refused breathing treatment.
[2019-05-14 13:00] VITALS: BP 127/59
[2019-05-14] MEDS ORDERED: POTASSIUM CHL 20 Meq TABLET PO ONE (13:30)
--- NOTE | 2019-05-14 14:19 | NUR ---
Attempted PT treatment but pt refused. She states she was already sitting up in a chair today and just wants to rest. Will attempt again tomorrow.
[2019-05-14] MEDS: PIPERACILLIN-TAZOB 3.375GM 100 ML IV SCH ×2 (16:10→20:14)
--- NOTE | 2019-05-14 16:10 | NUR ---
IV Journeyman Electrician Pv Installer, Hannah, entered patient's room to find the upper part of the bedding saturated in blood. After assessment, it was noted that the IV became dislodged. Catheter remained intact and pressure dressing applied. New IV access obtained, via clean sterile technique by inserting 20 gauge catheter at left outer forearm after 2 attempts. IV secured properly. No trauma to site. Patient tolerated well.
[2019-05-14] MEDS: methylPREDNISolone SOD SUCC 40 MG/ML VL IV SCH (16:11)
[2019-05-14] MEDS: LORazepam 2MG/ML-1ML VIAL IV PRN (16:32)
[2019-05-14 17:00] VITALS: BP 131/74
[2019-05-14] MEDS ORDERED: IOHEXOL 300 MG/ML 100ML BOTTLE IJ ONE (18:01)
--- NOTE | 2019-05-14 18:05 | NUR ---
OFF UNIT Patient taken off unit via wheelchair for CT scan. No S/S of distress noted.
--- NOTE | 2019-05-14 20:00 | NUR ---
Opening Shift Note Assumed care of patient, awake and alert. Resp even and unlabored with expiratory wheezes. No SOB. Patient complains of chronic knee and back pain. Instructed on POC and to call for assist PRN, will continue to monitor for changes Q1hr and PRN.
[2019-05-14 22:00] VITALS: BP 131/59
[2019-05-14] MEDS: traZODone HCL 50 MG TAB PO SCH (22:04)
[2019-05-14] MEDS: ATORVASTATIN 20 MG TAB PO SCH (22:09)
[2019-05-15] MEDS: LEVALBUTEROL HCL 1.25 MG/3 ML NEB NEB SCH ×5 (00:01→23:44)
[2019-05-15] MEDS: IPRATROPIUM BROM 0.5 MG/2.5ML INH SOL NEB SCH ×5 (00:01→23:44)
[2019-05-15] MEDS: methylPREDNISolone SOD SUCC 40 MG/ML VL IV SCH ×3 (00:04→20:17)
[2019-05-15] MEDS: PIPERACILLIN-TAZOB 3.375GM 100 ML IV SCH ×4 (01:32→20:16)
[2019-05-15] MEDS: HYDROcodone-ACET 10/325MG TAB PO PRN ×2 (01:45→16:42)
--- NOTE | 2019-05-15 03:30 | NUR ---
New IV started to right hand with 22 guage angiocath after 2 attempts. Old IV left upper arm noted with leakage
[2019-05-15] MEDS: LORazepam 2MG/ML-1ML VIAL IV PRN ×3 (03:36→22:37)
--- NOTE | 2019-05-15 04:50 | NUR ---
Patient b/p's 163/83. Medicated with Hydralazine 10 Mg IVP.
[2019-05-15 05:00] VITALS: BP 178/87
[2019-05-15] MEDS: hydrALAZINE HCL 20 MG/ML VL IV PRN ×2 (05:05→17:00)
[2019-05-15] MEDS: BUDESONIDE (INHALATION) 0.5 MG/2 ML NEB NEB SCH ×2 (06:05→18:30)
--- NOTE | 2019-05-15 07:26 | NUR ---
OPENING NOTE Assumed care of patient from NOC RN, Nimisha. Patient resting in bed with eyes closed, even rise and fall of chest noted. No S/S of distress/SOB or pain. Bed in lowest, locked position with side rails up x2. Fall precautions in place and call light within reach. Will continue to monitor for changes Q1hr and PRN.
[2019-05-15 07:29] LABS: Hematocrit 34.9 % (36.0-46.0); Hemoglobin 11.9 g/dL (12.2-16.2); Mean Corpuscular Hemoglobin 31.3 pg (28.0-32.0); Mean Corpuscular Volume 92.2 fL (80.0-100.0); Platelet Count (auto) 115 10^3/uL (140-450); Red Blood Cells 3.78 10^6/uL (4.0-5.20); White Blood Cell 9.5 10^3/uL (4.4-10.8)
[2019-05-15 07:32] LABS: Basophils % (manual) 0 (0.0-2.0); Blast Cells 0; Eosinophils % (manual) 0 (0-7); Promyelocytes % 0; Reactive Lymphocytes 0
[2019-05-15 07:55] LABS: BUN/Creatinine Ratio 22.5; Calcium 10.4 mg/dL (8.5-10.1)
[2019-05-15 08:40] LABS: Band Neutrophils % (manual) 1; Lymphocytes % (manual) 2 (10.0-50.0); Metamyelocytes % 1; Monocytes % (manual) 7 (0-12); Myelocytes % 3
[2019-05-15 09:00] VITALS: BP 120/73
[2019-05-15] MEDS: DOCUSATE SOD 100 MG CAP PO SCH ×2 (09:27→22:36)
[2019-05-15] MEDS: ESCITALOPRAM OXALATE 5 MG PO SCH (09:27)
[2019-05-15] MEDS: CARVEDILOL 12.5 MG TAB PO SCH ×2 (09:29→22:37)
[2019-05-15] MEDS: ASPirin-EC 81 mg tab PO SCH (09:29)
[2019-05-15] MEDS: LOSARTAN POTASSIUM 25 MG TAB PO SCH (09:29)
[2019-05-15] MEDS: FUROSEMIDE 20 MG TAB PO SCH (09:29)
[2019-05-15] MEDS: buPROPion HCL 75 MG TAB PO SCH (09:30)
[2019-05-15] MEDS: CLOPIDOGREL BISULFATE 75 MG TAB PO SCH (09:30)
[2019-05-15] MEDS: PANTOPRAZOLE 40 MG TAB PO SCH (09:30)
[2019-05-15] MEDS: ENOXAPARIN SOD 40 MG/0.4 ML SYRINGE SC SCH (09:30)
[2019-05-15] MEDS ORDERED: DEXTROSE (50%) 50ML SYRG IV PRN (12:45)
[2019-05-15 13:00] VITALS: BP 120/65
[2019-05-15] MEDS: InsuLIN REG 1unit/0.01ml Soln (100units/ml) SC SCH ×2 (16:39→22:46)
[2019-05-15] MEDS: SODIUM CHLORIDE 0.9% 1,000 ML IV SCH (16:39)
[2019-05-15] MEDS: ACCU-CHEK COMFORT CURVE STRIP VI SCH ×2 (16:41→22:46)
[2019-05-15 17:00] VITALS: BP 164/82
[2019-05-15] MEDS: guaiFENesin-DM 100/10mg/5ml SYR PO PRN (20:36)
[2019-05-15 22:00] VITALS: BP 127/59
[2019-05-15] MEDS: traZODone HCL 50 MG TAB PO SCH (22:36)
[2019-05-15] MEDS: ATORVASTATIN 20 MG TAB PO SCH (22:36)
[2019-05-16] MEDS: HYDROcodone-ACET 10/325MG TAB PO PRN ×2 (01:11→13:22)
[2019-05-16] MEDS: PIPERACILLIN-TAZOB 3.375GM 100 ML IV SCH ×4 (01:51→20:41)
[2019-05-16] MEDS: guaiFENesin-DM 100/10mg/5ml SYR PO PRN ×2 (03:43→08:15)
[2019-05-16 05:00] VITALS: BP 165/71
[2019-05-16] MEDS: InsuLIN REG 1unit/0.01ml Soln (100units/ml) SC SCH ×4 (06:17→21:00)
[2019-05-16] MEDS: ACCU-CHEK COMFORT CURVE STRIP VI SCH ×4 (06:18→20:43)
[2019-05-16] MEDS: IPRATROPIUM BROM 0.5 MG/2.5ML INH SOL NEB SCH ×3 (06:19→19:00)
[2019-05-16] MEDS: LEVALBUTEROL HCL 1.25 MG/3 ML NEB NEB SCH ×3 (06:19→18:59)
[2019-05-16] MEDS: BUDESONIDE (INHALATION) 0.5 MG/2 ML NEB NEB SCH ×2 (06:19→19:00)
[2019-05-16 07:33] LABS: Hematocrit 36.6 % (36.0-46.0); Hemoglobin 12.3 g/dL (12.2-16.2); Mean Corpuscular Hemoglobin 30.8 pg (28.0-32.0); Mean Corpuscular Hgb Conc. 33.5 g/dL (32.0-36.0); Platelet Count (auto) 142 10^3/uL (140-450); Red Blood Cells 3.98 10^6/uL (4.0-5.20); Red Cell Distribution Width 15.5 % (11.8-14.3); White Blood Cell 12.1 10^3/uL (4.4-10.8)
[2019-05-16 07:48] LABS: Calcium 10.4 mg/dL (8.5-10.1); Potassium 3.9 mmol/L (3.5-5.1)
[2019-05-16 07:50] LABS: BUN/Creatinine Ratio 17.8
[2019-05-16 07:52] LABS: Basophils % (manual) 0 (0.0-2.0); Blast Cells 0; Eosinophils % (manual) 0 (0-7); Promyelocytes % 0
[2019-05-16] MEDS: LORazepam 2MG/ML-1ML VIAL IV PRN ×3 (08:16→22:29)
[2019-05-16] MEDS: SODIUM CHLORIDE 0.9% 1,000 ML IV SCH (08:23)
[2019-05-16 08:33] LABS: Band Neutrophils % (manual) 4; Lymphocytes % (manual) 7 (10.0-50.0); Metamyelocytes % 2; Monocytes % (manual) 8 (0-12); Myelocytes % 1; Reactive Lymphocytes 1
[2019-05-16 09:00] VITALS: BP 154/83
[2019-05-16] MEDS: ESCITALOPRAM OXALATE 5 MG PO SCH (10:00)
[2019-05-16] MEDS ORDERED: DOBUTamine 1000MCG/ML 100 ML IV STA (10:33)
[2019-05-16] MEDS: methylPREDNISolone SOD SUCC 40 MG/ML VL IV SCH ×2 (10:33→20:41)
[2019-05-16] MEDS: ENOXAPARIN SOD 40 MG/0.4 ML SYRINGE SC SCH (10:34)
[2019-05-16] MEDS: CLOPIDOGREL BISULFATE 75 MG TAB PO SCH (10:34)
[2019-05-16] MEDS: ASPirin-EC 81 mg tab PO SCH (10:34)
[2019-05-16] MEDS: LOSARTAN POTASSIUM 25 MG TAB PO SCH ×2 (10:36→10:45)
[2019-05-16] MEDS: buPROPion HCL 75 MG TAB PO SCH (10:36)
[2019-05-16] MEDS: PANTOPRAZOLE 40 MG TAB PO SCH (10:37)
[2019-05-16] MEDS: DOCUSATE SOD 100 MG CAP PO SCH ×2 (10:37→20:58)
[2019-05-16] MEDS: CARVEDILOL 12.5 MG TAB PO SCH ×3 (10:38→20:59)
[2019-05-16] MEDS: FUROSEMIDE 20 MG TAB PO SCH ×2 (10:38→10:44)
[2019-05-16] MEDS ORDERED: NICOTINE 21MG/24 HR TOPICAL PATCH TD ONE (11:00)
[2019-05-16] MEDS ORDERED: hydrALAZINE HCL 20 MG/ML VL IV PRN (11:15)
[2019-05-16 11:31] VITALS: BP 168/80
[2019-05-16] MEDS ORDERED: ATROPINE SULFATE 0.4 MG/1 ML VIAL ONE (11:41)
--- NOTE | 2019-05-16 11:50 | NUR ---
Respiratory note: SCHEDULED MED NEB TX NOT GIVEN. PT WAS AT A PROCEDURE. FAMILY AT BEDSIDE WAITING FOR PATIENT TO RETURN.
--- NOTE | 2019-05-16 12:49 | NUR ---
Patient back in room at this time. Restless and requesting pain medication.
[2019-05-16 13:00] VITALS: BP 159/83
--- NOTE | 2019-05-16 15:58 | NUR ---
Assessment and SS consult Pt is a 73 yr old female. SS consult for home safety eval, no support at home and "lives with son and at home but they are gone most of the time." Pt was doing a stress test and Pt's , Rolando, was bedside and answered SW questions. Rolando is pt's emergency contact at [phone]. Pt lives at home with , who is her [facility] caregiver for 40 hours. Prior to admit, Pt uses walker to ambulate and needs assistance to med management, shower, toileting, cooking and cleaning. Pt uses a shower chair, commode, walker, and home 02. Pt's stated that the pt has a short term memory but that he is with her pretty much 05/01 helping to take care of her. Pt and receive income and have no AD on file. Pt's can transport home upon d/c. Pt would benefit from HH safety eval upon d/c. Addendum: 05/16/19 at 1607 by CRISTIAN ODELL Amended: Links added.
[2019-05-16 17:00] VITALS: BP 125/68
[2019-05-16] MEDS: traZODone HCL 50 MG TAB PO SCH (20:58)
[2019-05-16] MEDS: ATORVASTATIN 20 MG TAB PO SCH (20:58)
[2019-05-16 22:00] VITALS: BP 142/76
[2019-05-17] MEDS: HYDROcodone-ACET 10/325MG TAB PO PRN ×2 (00:24→18:14)
[2019-05-17] MEDS: LEVALBUTEROL HCL 1.25 MG/3 ML NEB NEB SCH ×4 (00:46→19:23)
[2019-05-17] MEDS: IPRATROPIUM BROM 0.5 MG/2.5ML INH SOL NEB SCH ×4 (00:46→19:23)
[2019-05-17 01:56] VITALS: BP 157/73
[2019-05-17] MEDS: PIPERACILLIN-TAZOB 3.375GM 100 ML IV SCH ×4 (02:14→20:40)
[2019-05-17 05:00] VITALS: BP 157/77
[2019-05-17] MEDS: BUDESONIDE (INHALATION) 0.5 MG/2 ML NEB NEB SCH ×2 (05:28→19:24)
--- NOTE | 2019-05-17 05:30 | NUR ---
PATIENT BEEN AMBULATING TO THE BATHROOM TO URINATE WITH ASSISTANCE, MAINTAINED FALL PREVENTION.
--- NOTE | 2019-05-17 05:35 | NUR ---
REPORT GIVEN TO PENNY/RN TO ASSUME CARE OF PATIENT.
--- NOTE | 2019-05-17 05:45 | NUR ---
Assumed Care of Pt Pt is resting in bed comfortably. No S/S of distress noted. Will continue to monitor.
[2019-05-17] MEDS: InsuLIN REG 1unit/0.01ml Soln (100units/ml) SC SCH ×4 (06:31→21:40)
[2019-05-17] MEDS: ACCU-CHEK COMFORT CURVE STRIP VI SCH ×4 (06:31→21:39)
[2019-05-17 07:02] LABS: Hematocrit 36.6 % (36.0-46.0); Hemoglobin 12.4 g/dL (12.2-16.2); Mean Corpuscular Hemoglobin 30.9 pg (28.0-32.0); Mean Corpuscular Hgb Conc. 33.9 g/dL (32.0-36.0); Mean Corpuscular Volume 91.3 fL (80.0-100.0); Platelet Count (auto) 158 10^3/uL (140-450); Red Blood Cells 4.01 10^6/uL (4.0-5.20); Red Cell Distribution Width 15.3 % (11.8-14.3); White Blood Cell 9.7 10^3/uL (4.4-10.8)
[2019-05-17 07:13] LABS: Band Neutrophils % (manual) 0; Basophils % (manual) 0 (0.0-2.0); Blast Cells 0; Eosinophils % (manual) 0 (0-7); Myelocytes % 0; Promyelocytes % 0; Reactive Lymphocytes 0
[2019-05-17 07:17] LABS: Calcium 10.3 mg/dL (8.5-10.1); Potassium 3.8 mmol/L (3.5-5.1)
[2019-05-17 07:20] LABS: BUN/Creatinine Ratio 22.1; Magnesium 2.3 mg/dL (1.6-2.6)
[2019-05-17 08:03] LABS: Lymphocytes % (manual) 3 (10.0-50.0); Metamyelocytes % 1; Monocytes % (manual) 8 (0-12)
[2019-05-17] MEDS: methylPREDNISolone SOD SUCC 40 MG/ML VL IV SCH ×2 (08:08→20:36)
[2019-05-17 09:00] VITALS: BP 123/59
[2019-05-17] MEDS: ESCITALOPRAM OXALATE 5 MG PO SCH (10:00)
[2019-05-17] MEDS: ASPirin-EC 81 mg tab PO SCH (10:00)
[2019-05-17] MEDS: ENOXAPARIN SOD 40 MG/0.4 ML SYRINGE SC SCH (11:49)
[2019-05-17] MEDS: LORazepam 2MG/ML-1ML VIAL IV PRN ×2 (11:50→20:14)
[2019-05-17] MEDS: CLOPIDOGREL BISULFATE 75 MG TAB PO SCH (11:50)
[2019-05-17] MEDS: buPROPion HCL 75 MG TAB PO SCH (11:52)
[2019-05-17] MEDS: CARVEDILOL 12.5 MG TAB PO SCH ×2 (11:52→22:01)
[2019-05-17] MEDS: PANTOPRAZOLE 40 MG TAB PO SCH (11:54)
[2019-05-17] MEDS: amLODIPine BESYLATE 5 MG TAB PO SCH (11:55)
[2019-05-17] MEDS: NICOTINE 21MG/24 HR TOPICAL PATCH TD SCH (11:57)
[2019-05-17] MEDS: DOCUSATE SOD 100 MG CAP PO SCH ×2 (12:12→21:29)
[2019-05-17 13:00] VITALS: BP 167/68
--- NOTE | 2019-05-17 13:52 | NUR ---
PATIENT REFUSED TO WALK WITH PHYSICAL THERAPY. PATIENT SAYS SHE WALKS TO THE BATHROOM WITHOUT ASSISTANCE. NOTIFIED EL MURCIA. Addendum: 05/17/19 at 1354 by LEENANA VILLANUEVA PTT Amended: Links added.
--- NOTE | 2019-05-17 15:22 | NUR ---
Nutrition Follow-up Notes Wt.: 161.7 kg as of yesterday. Pt's on oxygen via nasal cannula, asleep, no immediate family member at bedside during rounds this morning. Pt's no signs of distress noted earlier, currently on Cardiac: 2 gms Na, Low Chol, Low Fat diet with adequate PO intake aeb 80% ave. consumed meals (x6) in last 2.5 days. Noted pt's for NPO after midnight. Est. Needs BW 64 k-1600kcal (23-25 kcal/kgBW), 63-70gms pro (1.0-1.1 gms/kgBW). Will continue to monitor pertinent labs and reassess nutrient need prn Labs: Gluc 157 H, BUN 31 H, Cr 1.40 H, Ca 10.3 H; Alb 3.2 L. Skin: Enzo scale 20, low risk, skin intact per docket specialist. GI: Pt had 1 BM 05/15/19 per docket specialist. PES: Altered nutrition related lab values r/t current/chronic medical condition aeb hyperglycemia, hypercalcemia, elev BUN mild hypoalb Obesity r/t food intake more than body requirement aeb 289% IBW, BMI 69.6 kg/m2 and increased body adiposity Will continue to monitor PO intake/NPO status, skin status, pertinent labs and weight trend. F/u in 3 to 5 days. Rec.: 1.) Continue close supervision during meals. 2.) If Albumin continues trending down, consider Prostat 1 pkt BID. 3.) Refer pt to CDE/RD for further nutrition education and weight monitoring upon discharge. 4.) Continue current plan of care.
--- NOTE | 2019-05-17 16:20 | NUR ---
Discharge planning per SS consult, patient has orders to dc with home health. Patient was on services with [facility] -[phone], fax [phone], placed a follow up call, spoke with nurse Woodward and was advised that they will resume services with patient upon discharge. Auth obtained from [facility]. [id number].
[2019-05-17] MEDS: SODIUM CHLORIDE 0.9% 1,000 ML IV SCH ×2 (17:08)
[2019-05-17 17:35] VITALS: BP 147/81
--- NOTE | 2019-05-17 18:56 | NUR ---
Patient currently calm and eating dinner. Patient accidentally pulled off IV line access on right arm. Unable to reestablish new IV access after 2 tries. Endorsed to night shift manager staff at this time.
--- NOTE | 2019-05-17 20:00 | NUR ---
IV insertion IV access obtained, via clean sterile technique by inserting 22 gauge catheter at right hand after one attempt by Benton Waddell. IV secured properly. No trauma to site. Patient tolerated procedure well.
[2019-05-17] MEDS ORDERED: SODIUM CHLORIDE 0.9% 500 ML IV ONE (21:00)
[2019-05-17] MEDS: ATORVASTATIN 20 MG TAB PO SCH (21:29)
[2019-05-17] MEDS: traZODone HCL 50 MG TAB PO SCH (21:37)
[2019-05-17 22:00] VITALS: BP 141/75
[2019-05-18] MEDS: IPRATROPIUM BROM 0.5 MG/2.5ML INH SOL NEB SCH ×4 (00:18→18:53)
[2019-05-18] MEDS: LEVALBUTEROL HCL 1.25 MG/3 ML NEB NEB SCH ×4 (00:18→18:54)
[2019-05-18] MEDS: PIPERACILLIN-TAZOB 3.375GM 100 ML IV SCH ×4 (02:01→19:36)
--- NOTE | 2019-05-18 02:49 | NUR ---
EKG done result in the chart.
--- NOTE | 2019-05-18 02:51 | NUR ---
EKG done for procedure today,both groin shave.
--- NOTE | 2019-05-18 03:00 | NUR ---
Both groin shave for procedure today.
[2019-05-18] MEDS: HYDROcodone-ACET 10/325MG TAB PO PRN ×2 (06:00→14:37)
[2019-05-18] MEDS: ACCU-CHEK COMFORT CURVE STRIP VI SCH ×4 (06:17→21:50)
[2019-05-18] MEDS: InsuLIN REG 1unit/0.01ml Soln (100units/ml) SC SCH ×4 (06:18→21:50)
[2019-05-18] MEDS: BUDESONIDE (INHALATION) 0.5 MG/2 ML NEB NEB SCH ×2 (06:20→18:54)
[2019-05-18 06:41] VITALS: BP 150/74
--- NOTE | 2019-05-18 07:10 | NUR ---
Report given to Benton Azul, NPO maintained.
[2019-05-18] MEDS: ENOXAPARIN SOD 40 MG/0.4 ML SYRINGE SC SCH (07:34)
[2019-05-18 07:45] LABS: Hematocrit 38.7 % (36.0-46.0); Mean Corpuscular Hemoglobin 30.8 pg (28.0-32.0); Mean Corpuscular Hgb Conc. 33.6 g/dL (32.0-36.0); Mean Corpuscular Volume 91.8 fL (80.0-100.0); Platelet Count (auto) 156 10^3/uL (140-450); Red Blood Cells 4.22 10^6/uL (4.0-5.20); Red Cell Distribution Width 15.5 % (11.8-14.3); White Blood Cell 9.5 10^3/uL (4.4-10.8)
[2019-05-18 07:56] LABS: Basophils % (manual) 0 (0.0-2.0); Blast Cells 0; Eosinophils % (manual) 0 (0-7); Myelocytes % 0; Promyelocytes % 0; Reactive Lymphocytes 0
[2019-05-18 08:15] LABS: BUN/Creatinine Ratio 29.2; Calcium 10.8 mg/dL (8.5-10.1)
[2019-05-18] MEDS: methylPREDNISolone SOD SUCC 40 MG/ML VL IV SCH ×2 (08:30→19:36)
[2019-05-18 08:31] LABS: INR 1.03 (0.9-1.15); Partial Thromboplastin Time 24.7 sec (23.64-32.05)
[2019-05-18 09:00] VITALS: BP 134/61
--- NOTE | 2019-05-18 09:33 | NUR ---
PT TAKEN TO AMBULATORY CARE
[2019-05-18] MEDS: SODIUM CHLORIDE 0.9% 1,000 ML IV SCH (09:40)
[2019-05-18] MEDS: CLOPIDOGREL BISULFATE 75 MG TAB PO SCH (10:00)
[2019-05-18] MEDS: NICOTINE 21MG/24 HR TOPICAL PATCH TD SCH (10:00)
[2019-05-18] MEDS: PANTOPRAZOLE 40 MG TAB PO SCH (10:00)
[2019-05-18] MEDS: ASPirin-EC 81 mg tab PO SCH (10:00)
[2019-05-18] MEDS: CARVEDILOL 12.5 MG TAB PO SCH ×2 (10:00→21:49)
[2019-05-18] MEDS: buPROPion HCL 75 MG TAB PO SCH (10:00)
[2019-05-18] MEDS: DOCUSATE SOD 100 MG CAP PO SCH ×2 (10:00→21:48)
[2019-05-18] MEDS: ESCITALOPRAM OXALATE 5 MG PO SCH (10:00)
[2019-05-18] MEDS: amLODIPine BESYLATE 5 MG TAB PO SCH (10:00)
[2019-05-18] MEDS ORDERED: ANGIOMAX 250 MG VIAL IV ONE (10:21)
[2019-05-18] MEDS ORDERED: MIDAZOLAM HCL 1MG/1ML-2 ML VIAL ONE (10:22)
[2019-05-18] MEDS ORDERED: SODIUM CHL 0.9% 0 ML ONE (10:22)
[2019-05-18] MEDS ORDERED: fentaNYL CITRATE 100 MCG/2 ML VL ONE (10:22)
[2019-05-18] MEDS ORDERED: HEPARIN SODIUM (PORCINE) 5000 UNITS/ML 1ML VIAL ONE (10:22)
[2019-05-18] MEDS ORDERED: IODIXANOL 320MG/ML 100ML BTL IV ONE (10:22)
[2019-05-18] MEDS ORDERED: LIDOCAINE 2%HCL (LOCAL ANESTH.) INJ 20ML MDV ONE (10:22)
[2019-05-18] MEDS ORDERED: VERAPAMIL 2.5MG/ML INJ 2ML VIAL IV ONE (10:22)
[2019-05-18] MEDS ORDERED: IOHEXOL 350 MG/ML 100ML IJ ONE (10:44)
[2019-05-18 10:57] LABS: Band Neutrophils % (manual) 4; Lymphocytes % (manual) 7 (10.0-50.0); Metamyelocytes % 1; Monocytes % (manual) 9 (0-12)
--- NOTE | 2019-05-18 12:18 | NUR ---
Respiratory note: 12:00PM SCHEDULED MED NEB TX NON-ADMINISTERED PT IN OFF UNIT TO RAIL CAR REPAIR CARMAN FOR PROCEDURE. WILL HAVE NOC THERAPIST FOLLOW UP WITH NEXT SCHEDULED TX AT 18:00
--- NOTE | 2019-05-18 12:48 | NUR ---
pt still off unit in metallurgy laboratory technician
--- NOTE | 2019-05-18 13:00 | NUR ---
PT WAS IN FLORAL DESIGN TEACHER FOR 1300 VITALS. WILL MONITOR WHEN PT COMES BACK.
--- NOTE | 2019-05-18 13:25 | NUR ---
recieved report from hemodialysis lab technician pt done with procedure procedure negative no blockages found
[2019-05-18] MEDS: LORazepam 2MG/ML-1ML VIAL IV PRN (14:36)
--- NOTE | 2019-05-18 16:00 | NUR ---
PATIENT REPORTS THAT HER HAND FEELS TIGHT CAPILLARY REFILL NOTED SKIN WARM TO TOUCH NO SWELLING NOTED PRESSURE DRESSING STILL INTACT PER ORDERS SLIGHT BRUISING NOTED
--- NOTE | 2019-05-18 16:44 | NUR ---
PATIENT REFUSED P.T TODAY. WILL TRY AGAIN TOMORROW. Addendum: 05/18/19 at 1645 by LEEANNA VILLANUEVA PTT Amended: Links added.
[2019-05-18 17:00] VITALS: BP 144/80
--- NOTE | 2019-05-18 18:00 | NUR ---
RAINE SAID THAT HER HAND FEELS TIGHT CAPILLARY REFILL NOTED SKIN WARM TO TOUCH NO SWELLING NOTED PRESSURE DRESSING STILL INTACT PER ORDERS SLIGHT BRUISING NOTED
--- NOTE | 2019-05-18 18:54 | NUR ---
Respiratory note: AT BEDSIDE FOR MED NEB TX. PT WAS FOUND OFF NASAL CANNULA POX 88% ON RA. ADMINISTERED MED NEB TX. POST MED NEB TO PLACE PT ON BACK ON 3LPM VIA NC.
--- NOTE | 2019-05-18 21:00 | NUR ---
HAND FEELS TIGHT CAPILLARY REFILL NOTED SKIN WARM TO TOUCH NO SWELLING NOTED PRESSURE DRESSING STILL INTACT PER ORDERS SLIGHT BRUISING NOTED
[2019-05-18] MEDS: ATORVASTATIN 20 MG TAB PO SCH (21:49)
[2019-05-18] MEDS: traZODone HCL 50 MG TAB PO SCH (21:49)
--- NOTE | 2019-05-18 21:53 | NUR ---
patient refused blood glucose testing risk and benefit explained stated you can do it later im trying to sleep
[2019-05-18 22:00] VITALS: BP 132/67
--- NOTE | 2019-05-19 00:26 | NUR ---
ROUNDED ON PATIENT,PT ASLEEP RESTING COMFORTABLY RESPIRATIONS EVEN UNLABORED NO RESPIRATORY DISTRESS NOTED, VERBALLY AROUSABLE NO COMPLAINT OF PAIN OR DISCOMFORT NOTED BED IN LOWEST POSITION CALL LIGHT WITHIN REACH WILL CONTINUE TO MONITOR
[2019-05-19] MEDS: IPRATROPIUM BROM 0.5 MG/2.5ML INH SOL NEB SCH ×3 (00:53→12:08)
[2019-05-19] MEDS: LEVALBUTEROL HCL 1.25 MG/3 ML NEB NEB SCH ×3 (00:53→12:09)
[2019-05-19] MEDS: PIPERACILLIN-TAZOB 3.375GM 100 ML IV SCH ×3 (00:59→14:12)
[2019-05-19] MEDS: SODIUM CHLORIDE 0.9% 1,000 ML IV SCH (01:00)
[2019-05-19] MEDS: HYDROcodone-ACET 10/325MG TAB PO PRN ×2 (01:01→14:12)
--- NOTE | 2019-05-19 01:01 | NUR ---
PT COMPLAINED ON PAIN IN LEFT HAND AND THAT HER HAND FEELS TIGHT CAPILLARY REFILL NOTED SKIN WARM TO TOUCH NO SWELLING NOTED PRESSURE DRESSING STILL INTACT PER ORDERS SLIGHT BRUISING NOTED PRN PAIN MED GIVEN
--- NOTE | 2019-05-19 03:30 | NUR ---
Opening Shift Note RECEIVED REPORT FROM DAY RN. Assumed care of patient, ASLEEP. No S/S of distress/SOB or pain. BED IN LOWEST, LOCKED POSITION WITH SIDERAILS UP x2 AND CALL LIGHT WITHIN REACH. WILL instruct on POC and to call for assist PRN, will continue to monitor for changes Q1hr and PRN.
[2019-05-19 05:00] VITALS: BP 124/63
--- NOTE | 2019-05-19 05:21 | NUR ---
CASING CREW CALLED TO REPORT PATIENT BEING EXTREMELY BRADYCARDIC IN THE 20s. UPON ASSESSMENT, PATIENT FOUND TO HAVE HEART RATE OF 65 BY RADIAL PALPATION.
[2019-05-19] MEDS: BUDESONIDE (INHALATION) 0.5 MG/2 ML NEB NEB SCH (06:23)
[2019-05-19] MEDS: LORazepam 2MG/ML-1ML VIAL IV PRN (06:29)
[2019-05-19] MEDS: ACCU-CHEK COMFORT CURVE STRIP VI SCH ×2 (06:55→12:32)
[2019-05-19] MEDS: InsuLIN REG 1unit/0.01ml Soln (100units/ml) SC SCH ×2 (06:55→12:32)
[2019-05-19] MEDS: methylPREDNISolone SOD SUCC 40 MG/ML VL IV SCH (08:02)
[2019-05-19 09:00] VITALS: BP 129/63
[2019-05-19 09:25] LABS: Calcium 10.3 mg/dL (8.5-10.1)
[2019-05-19] MEDS: ESCITALOPRAM OXALATE 5 MG PO SCH (09:58)
[2019-05-19] MEDS: ASPirin-EC 81 mg tab PO SCH (10:00)
[2019-05-19] MEDS: NICOTINE 21MG/24 HR TOPICAL PATCH TD SCH (10:01)
[2019-05-19] MEDS: CLOPIDOGREL BISULFATE 75 MG TAB PO SCH (10:01)
[2019-05-19] MEDS: PANTOPRAZOLE 40 MG TAB PO SCH (10:01)
[2019-05-19] MEDS: DOCUSATE SOD 100 MG CAP PO SCH (10:01)
[2019-05-19] MEDS: ENOXAPARIN SOD 40 MG/0.4 ML SYRINGE SC SCH (10:01)
[2019-05-19] MEDS: buPROPion HCL 75 MG TAB PO SCH (10:02)
[2019-05-19] MEDS: CARVEDILOL 12.5 MG TAB PO SCH (10:02)
[2019-05-19] MEDS: amLODIPine BESYLATE 5 MG TAB PO SCH (10:02)
--- NOTE | 2019-05-19 10:48 | NUR ---
DR. RAYA AT BEDSIDE.
[2019-05-19 13:00] VITALS: BP 127/73
[2019-05-19] MEDS ORDERED: LEVO750T2 PO (14:00)
[2019-05-19] MEDS ORDERED: NIC21P TOP (14:05)
--- NOTE | 2019-05-19 14:08 | NUR ---
PT FIRST VISIT PATIENT REQUESTED AFTER LUNCH. SECOND VISIT PATIENT SAID SHE WAS GETTING DISCHARGED LATER TODAY AND WANTED TO SKIP PT. Addendum: 05/19/19 at 1410 by LEEANNA VILLANUEVA PTT Amended: Links added.
[2019-05-19 14:41] VITALS: BP 127/73
--- NOTE | 2019-05-19 15:30 | NUR ---
DRESSING TO LEFT THUMB CHANGED. GAUZE AND TEGADERM APPLIED AND COVERED WITH COBAN.
--- NOTE | 2019-05-19 16:30 | NUR ---
DRESSING TO LEFT THUMB CLEAN, DRY, AND INTACT.
--- NOTE | 2019-05-19 17:00 | NUR ---
Discharge planning per SS consult, patient has orders to dc with home health. patient was previously with [facility]. Referral sent, placed a follow up call, spoke with Crissy and was advised that they will resume services with patient upon discharge. Auth obtained from [facility]-[id number].
[2019-05-20 07:06] LABS: Immunoglobulin G, Serum 873 mg/dL (700-1600)
== END 2019-05-19 16:38 | disposition home health service (06) | DRG 286 ==
LOC: EDBD 12:27 → ER 12:34 → TELE 12:35 → TELE-EAST 17:25
PROVIDERS: ADMIT Nurse Practitioner Acute Care; ATTEND Internal Medicine
PROC: 4B02XSZ Measurement of Cardiac Pacemaker, External Approach (ICD-10-PCS; 2019-05-17)
PROC: 4A023N7 Measurement of Cardiac Sampling and Pressure, Left Heart, Percutaneous Approach (ICD-10-PCS; principal; 2019-05-18)
PROC: B211YZZ Fluoroscopy of Multiple Coronary Arteries using Other Contrast (ICD-10-PCS; 2019-05-18)
PROC: B215YZZ Fluoroscopy of Left Heart using Other Contrast (ICD-10-PCS; 2019-05-18)
DX: I13.0 Hypertensive heart and chronic kidney disease with heart failure and stage 1 through stage 4 chronic kidney disease, or unspecified chronic kidney disease (principal); A41.9 Sepsis, unspecified organism; J96.20 Acute and chronic respiratory failure, unspecified whether with hypoxia or hypercapnia; J18.9 Pneumonia, unspecified organism; N17.0 Acute kidney failure with tubular necrosis; I50.43 Acute on chronic combined systolic (congestive) and diastolic (congestive) heart failure; J44.0 Chronic obstructive pulmonary disease with (acute) lower respiratory infection; J44.1 Chronic obstructive pulmonary disease with (acute) exacerbation; I25.10 Atherosclerotic heart disease of native coronary artery without angina pectoris; I25.5 Ischemic cardiomyopathy; B18.2 Chronic viral hepatitis C; F41.9 Anxiety disorder, unspecified; D69.59 Other secondary thrombocytopenia; E03.9 Hypothyroidism, unspecified; E83.52 Hypercalcemia; E78.5 Hyperlipidemia, unspecified; E66.9 Obesity, unspecified; E78.00 Pure hypercholesterolemia, unspecified; N18.3 Chronic kidney disease, stage 3 (moderate); I77.819 Aortic ectasia, unspecified site; J44.9 Chronic obstructive pulmonary disease, unspecified; K59.00 Constipation, unspecified; K21.9 Gastro-esophageal reflux disease without esophagitis; K80.20 Calculus of gallbladder without cholecystitis without obstruction; J20.9 Acute bronchitis, unspecified; F31.9 Bipolar disorder, unspecified; F17.210 Nicotine dependence, cigarettes, uncomplicated; E11.22 Type 2 diabetes mellitus with diabetic chronic kidney disease; T38.0X5A Adverse effect of glucocorticoids and synthetic analogues, initial encounter; Z95.5 Presence of coronary angioplasty implant and graft; Z79.02 Long term (current) use of antithrombotics/antiplatelets; Z99.81 Dependence on supplemental oxygen; Z95.0 Presence of cardiac pacemaker; Z86.73 Personal history of transient ischemic attack (TIA), and cerebral infarction without residual deficits; I25.2 Old myocardial infarction; Z88.2 Allergy status to sulfonamides; Z79.899 Other long term (current) drug therapy; Z71.6 Tobacco abuse counseling; Z68.27 Body mass index [BMI] 27.0-27.9, adult
CPT/HCPCS: 36415; 71045; 71250; 74176; 74178; 78452; 80048; 80053; 80061; 82105; 82784; 82962; 83615; 83735; 83880; 83883; 83970; 84155; 84165; 84484; 85007; 85025; 85027; 85610; 85730; 86334; 87070; 87205; 87804; 93005; 93017; 93306; 93458; 94640; 96361; 96374; 96375; G0378; J0461; J1815; J1956; J2250; J2543; Q9967

== ENCOUNTER 2019-07-02 22:25 | Emergency (ER) | payer OTHER, MEDICAID ==
[~2019-07-02] VITALS: Ht 152.4 cm; Wt 68.0 kg
[~2019-07-02 22:25] MED LIST changes: +LEVO750T2 PO; +NIC21P TOP; +TRAM50TA2 PO
[2019-07-03 02:20] VITALS: BP 166/70
[2019-07-03 03:56] LABS: Basophils # (auto) 0.1 uL; Basophils % (auto) 0.8 % (0.0-2.0); Eosinophils # (auto) 0.2 uL; Eosinophils % (auto) 1.6 % (0.0-7.0); Hemoglobin 14.5 g/dL (12.2-16.2); Lymphocytes % (auto) 26.5 % (10.0-50.0); Mean Corpuscular Hemoglobin 30.1 pg (28.0-32.0); Mean Corpuscular Hgb Conc. 32.8 g/dL (32.0-36.0); Mean Corpuscular Volume 91.8 fL (80.0-100.0); Monocytes # (auto) 1.1 uL; Monocytes % (auto) 9.4 % (0.0-12.0); Neutrophils # (auto) 7.1 uL; Neutrophils % (auto) 61.7 % (37.0-80.0); Nucleated Red Blood Cells % 0.1 %; Platelet Count (auto) 182 10^3/uL (140-450); Red Blood Cells 4.79 10^6/uL (4.0-5.20); Red Cell Distribution Width 15.5 % (11.8-14.3); White Blood Cell 11.4 10^3/uL (4.4-10.8)
[2019-07-03 04:16] LABS: Albumin 3.7 g/dL (3.4-5.0); Anion Gap 8 (5-15); BUN/Creatinine Ratio 26.9; Blood Urea Nitrogen 32 mg/dL (7-18); Calcium 10.6 mg/dL (8.5-10.1); Carbon Dioxide 25 mmol/L (21-32); Chloride 106 mmol/L (98-107); GFR African American 57 mL/min; GFR Non-African American 47 mL/min; Glucose 88 mg/dL (74-106); Sodium 139 mmol/L (136-145)
[2019-07-03 04:19] LABS: Alanine Aminotransferase 24 U/L (13-56); Alkaline Phosphatase 73 U/L (45-117); Aspartate Aminotransferase 29 U/L (15-37); Bilirubin, Total 0.4 mg/dL (0.2-1.0); Total Protein 7.8 g/dL (6.4-8.2)
== END 2019-07-03 05:29 | disposition home or self-care (01) ==
LOC: EDBD 22:25 → ER 22:27
DX: S00.03XA Contusion of scalp, initial encounter (principal); S50.812A Abrasion of left forearm, initial encounter; S50.811A Abrasion of right forearm, initial encounter; F41.9 Anxiety disorder, unspecified; R07.89 Other chest pain; I11.0 Hypertensive heart disease with heart failure; I50.9 Heart failure, unspecified; F32.9 Major depressive disorder, single episode, unspecified; K21.9 Gastro-esophageal reflux disease without esophagitis; E78.5 Hyperlipidemia, unspecified; I25.2 Old myocardial infarction; Z98.61 Coronary angioplasty status; Z88.2 Allergy status to sulfonamides; X58.XXXA Exposure to other specified factors, initial encounter; Y93.89 Activity, other specified; Y92.89 Other specified places as the place of occurrence of the external cause; Y99.8 Other external cause status
CPT/HCPCS: 36415; 71045; 80053; 83735; 83880; 84484; 85025; 93005

== ENCOUNTER 2020-02-02 12:24 | Inpatient (IN) | payer OTHER, MEDICAID ==
[~2020-02-02] VITALS: Ht 157.5 cm; Wt 69.2 kg
[~2020-02-02 12:24] MED LIST changes: -LEVO750T2 PO; +LEVO750T8 PO; -TRAZ150T79 PO; +TRAZ1TAB12 PO
[2020-02-02] MEDS ORDERED: NITROGLYCERIN 0.4 MG SL TAB SL ONE (12:45)
[2020-02-02 13:23] LABS: Basophils # (auto) 0.1 10 ^3/uL (0-0.2); Basophils % (auto) 1.2 % (0.0-2.0); Eosinophils # (auto) 0.2 10 ^3/uL (0-0.8); Eosinophils % (auto) 2.4 % (0.0-7.0); Hematocrit 38.2 % (36.0-46.0); Hemoglobin 12.3 g/dL (12.2-16.2); Lymphocytes # (auto) 1.6 10 ^3/uL (0.4-5.4); Lymphocytes % (auto) 21.8 % (10.0-50.0); Mean Corpuscular Hemoglobin 28.9 pg (28.0-32.0); Mean Corpuscular Hgb Conc. 32.3 g/dL (32.0-36.0); Mean Corpuscular Volume 89.5 fL (80.0-100.0); Monocytes # (auto) 0.7 10 ^3/uL (0-1.3); Monocytes % (auto) 10.1 % (0.0-12.0); Neutrophils # (auto) 4.7 10 ^3/uL (1.6-8.6); Neutrophils % (auto) 64.5 % (37.0-80.0); Platelet Count (auto) 160 10^3/uL (140-450); Red Blood Cells 4.27 10^6/uL (4.0-5.20); Red Cell Distribution Width 18.7 % (11.8-14.3); White Blood Cell 7.3 10^3/uL (4.4-10.8)
[2020-02-02 13:43] LABS: Albumin 3.7 g/dL (3.4-5.0); Anion Gap 4 (5-15); Blood Urea Nitrogen 23 mg/dL (7-18); Calcium 8.2 mg/dL (8.5-10.1); Carbon Dioxide 27 mmol/L (21-32); Chloride 110 mmol/L (98-107); Glucose 98 mg/dL (74-106); Potassium 3.6 mmol/L (3.5-5.1); Sodium 141 mmol/L (136-145)
[2020-02-02 13:52] LABS: Alanine Aminotransferase 24 U/L (13-56); Alkaline Phosphatase 65 U/L (45-117); Aspartate Aminotransferase 24 U/L (15-37); BUN/Creatinine Ratio 18.1; Bilirubin, Total 0.4 mg/dL (0.2-1.0); GFR African American 53 mL/min; GFR Non-African American 44 mL/min; Total Protein 6.6 g/dL (6.4-8.2)
[2020-02-02] MEDS ORDERED: MORPHINE SULFATE 4 MG/ML SYR/VIAL IV ONE (14:30)
[2020-02-02] MEDS ORDERED: ONDANSETRON HCL 4 MG/2 ML VIAL IV ONE (14:30)
[2020-02-02] MEDS ORDERED: ACETAMINOPHEN 500 MG TAB PO PRN (17:00)
[2020-02-02] MEDS ORDERED: PROMETHAZINE HCL 25 MG/ML 1ML IV PRN (17:00)
[2020-02-02] MEDS ORDERED: NITROGLYCERIN 0.4 MG SL TAB SL PRN (17:00)
[2020-02-02] MEDS ORDERED: MORPHINE SULF INJ 2 MG/ML SYRINGE 1ML IV PRN ×2 (17:00)
[2020-02-02] MEDS ORDERED: FUROSEMIDE 20 MG/2 ML VIAL IV ONE (17:00)
[2020-02-02] MEDS ORDERED: MORPHINE SULF INJ 2 MG/ML SYRINGE 1ML IV ONE (17:00)
[2020-02-02] MEDS ORDERED: DEXTROSE (50%) 50ML SYRG IV PRN (17:00)
[2020-02-02] MEDS: ACCU-CHEK COMFORT CURVE STRIP VI SCH ×2 (18:30→22:25)
[2020-02-02] MEDS: InsuLIN REG 1unit/0.01ml Soln (100units/ml) SC SCH ×2 (18:40→22:00)
[2020-02-02 20:18] LABS: INR 1.03 (0.9-1.15); Partial Thromboplastin Time 27.2 sec (23.0-31.2)
--- NOTE | 2020-02-02 20:41 | NUR ---
Patient Brought to Unit From ER Patient is alert and oriented. Patient sitting in bed w/ HOB at 30 degrees. Patient has no s/s of distress or SOB. Call light within reach, bed locked in lowest position. Discussed POC w/ patient. Will continue to monitor.
--- NOTE | 2020-02-02 21:57 | NUR ---
Paged Hospitalist Patient complains of itchiness due to bug bites on her legs and arms. Patient requests Benadryl to help with itchiness. Paged hospitalist at this time to request medication.
[2020-02-02] MEDS: TIZANIDINE HCL 2 MG PO SCH (22:00)
[2020-02-02] MEDS: SODIUM CHLOR 0.9% PF (SALINE LOCK) 10ML VIAL/SYR IV SCH (22:00)
[2020-02-02] MEDS: traZODone HCL 50 MG TAB PO SCH (22:30)
[2020-02-02] MEDS ORDERED: diphenhdrAMINE HCL 25 MG CAP PO ONE (22:30)
[2020-02-02] MEDS: ATORVASTATIN 20 MG TAB PO SCH (22:31)
--- NOTE | 2020-02-02 23:00 | NUR ---
IV removal on right Forearm Due to Leaking Site and Infiltration IV DC'd with sterile technique, catheter fully intact. Pressure dressing applied to site. Patient tolerated procedure well. Discharged with aftercare instructions per
--- NOTE | 2020-02-02 23:20 | NUR ---
IV insertion IV access obtained, via clean sterile technique by inserting 22 gauge catheter at right hand after 2 attempt(s). IV secured properly. No trauma to site. Patient tolerated procedure well.
--- NOTE | 2020-02-02 23:24 | NUR ---
Patient Complains of General Pain 8/ Patient given pain medication as prescribed. Will continue to monitor.
[2020-02-03 05:00] VITALS: BP 108/48
[2020-02-03] MEDS: SODIUM CHLOR 0.9% PF (SALINE LOCK) 10ML VIAL/SYR IV SCH ×3 (05:32→21:56)
[2020-02-03] MEDS: InsuLIN REG 1unit/0.01ml Soln (100units/ml) SC SCH ×2 (06:19→11:30)
[2020-02-03] MEDS: ACCU-CHEK COMFORT CURVE STRIP VI SCH ×2 (06:19→11:43)
[2020-02-03 06:43] LABS: Cholesterol 109 mg/dL (< 200); HDL Cholesterol 51 mg/dL (40-59); LDL Cholesterol 42 mg/dL (< 100); Triglycerides 161 mg/dL (< 150)
--- NOTE | 2020-02-03 07:00 | NUR ---
Care endorsed to Day Shift RN.
[2020-02-03 08:00] VITALS: BP 124/61
[2020-02-03] MEDS: CARVEDILOL 3.125 MG TAB PO SCH ×2 (08:17→18:31)
[2020-02-03] MEDS: HYDROcodone-ACET 10/325MG TAB PO PRN (08:21)
[2020-02-03] MEDS: ASPirin-EC 81 mg tab PO SCH (09:30)
[2020-02-03] MEDS: ENOXAPARIN SOD 40 MG/0.4 ML SYRINGE SC SCH (09:30)
[2020-02-03] MEDS: LOSARTAN POTASSIUM 25 MG TAB PO SCH (09:31)
[2020-02-03] MEDS: CITALOPRAM HYDROBR 20 MG TAB PO SCH (09:31)
[2020-02-03] MEDS: FUROSEMIDE 20 MG TAB PO SCH (09:32)
[2020-02-03] MEDS: PANTOPRAZOLE 40 MG TAB PO SCH (09:32)
[2020-02-03] MEDS: buPROPion HCL 75 MG TAB PO SCH (09:32)
--- NOTE | 2020-02-03 09:45 | NUR ---
Hospitalist Rounded Dr. Juarez at bedside with patient.
[2020-02-03 12:00] VITALS: BP 109/54
[2020-02-03] MEDS ORDERED: MORPHINE SULF INJ 2 MG/ML SYRINGE 1ML IV PRN (14:00)
[2020-02-03] MEDS: traMADol HCL 50 MG TAB PO PRN ×2 (14:54→21:56)
--- NOTE | 2020-02-03 16:06 | NUR ---
Assessment Patient is a 74-year-old female who is alert and oriented. Prior to admission patient lived with her Scar and functioned with assistance. Per patient her helps her with her ADL's. Per patient she has a wheelchair, walker with seat, shower chair and home oxygen. Patient PCP is Dr. Brannon. Per patient she will return home to her prior living arrangements post discharge and will need a TAXI voucher. Advised patient there is a social service consult for safety evaluation, physical therapy, medication management and vitals. Per patient she is on service with [facility] and would like to resume service. Informed patient clinical information will be faxed to agency. Informed Patient she has a right to participate in all discharge planning. Patient verbalized understanding discharge plan. Faxed clinical information to [facility] and [facility] requesting authorization for agency. Rodolfo Mcmahan with [facility] patient has been accepted and service to start within 24-48hrs upon d/c day. Addendum: 02/03/20 at 1628 by GAYE LAWTON Amended: Links added.
--- NOTE | 2020-02-03 16:14 | NUR ---
PATIENT REPORTS THAT SHE IS ABLE TO WALK FINE AND DOES NOT NEED P.T.
--- NOTE | 2020-02-03 16:29 | NUR ---
obtain authorization from [facility] [id number].
[2020-02-03 17:00] VITALS: BP 110/52
--- NOTE | 2020-02-03 19:34 | NUR ---
Opening Shift Note Received report and assumed care of patient. Patient is awake and alert. Verified with patient that she is not allergic to Zofran, will remove from allergies list. No signs or symptoms of distress noted. Instructed patient on plan of care and to call for assistance as needed. Will continue to monitor.
[2020-02-03] MEDS: traZODone HCL 50 MG TAB PO SCH (21:56)
[2020-02-03] MEDS: ATORVASTATIN 20 MG TAB PO SCH (21:56)
--- NOTE | 2020-02-03 21:56 | NUR ---
Pain Medication Administration Patient complaining of general pain 12/22. Patient requesting for tramadol to be administered. Will administer pain medication per MD order. Will reassess pain level and will continue to monitor.
[2020-02-03] MEDS: TIZANIDINE HCL 2 MG PO SCH (21:57)
[2020-02-03 22:00] VITALS: BP 132/59
--- NOTE | 2020-02-03 22:56 | NUR ---
Pain Level Reassessment Patient is asleep for pain level reassessment, patient's pain level is scored 0 using Flacc Pain Scale. No signs or symptoms of distress noted. Will continue to monitor.
[2020-02-03 23:18] LABS: Urine Bacteria FEW /hpf (None Seen); Urine Blood Negative /uL (Negative); Urine Specific Gravity 1.017 (1.001-1.035); Urine WBC 3 /hpf (0 - 5)
[2020-02-03 23:37] LABS: Alcohol, Urine < 3.0 mg/dL (0-10); Amphetamine Screen, Urine POSITIVE (NEGATIVE); Barbiturate Scree,Urine NEGATIVE (NEGATIVE); Benzodiazephine Screen, Urine NEGATIVE (NEGATIVE); Cannabinoid Screen, Urine NEGATIVE (NEGATIVE); Cocaine Screen, Urine NEGATIVE (NEGATIVE); Opiate Scree,Urine POSITIVE (NEGATIVE); Phencyclidine Screen, Urine NEGATIVE (NEGATIVE)
[2020-02-04 05:00] VITALS: BP 102/59
[2020-02-04] MEDS: SODIUM CHLOR 0.9% PF (SALINE LOCK) 10ML VIAL/SYR IV SCH ×2 (06:20→14:38)
--- NOTE | 2020-02-04 07:45 | NUR ---
Opening Note Received report from shift commander RN. Patient is awake, alert and oriented x4. Patient is on 3L NC, respirations even and unlabored. Reviewed plan of care with patient, patient verbalized understanding. Bed in low and locked position, call light within reach. Will continue to monitor Q1 hour and PRN.
[2020-02-04 09:00] VITALS: BP 124/74
[2020-02-04] MEDS: PANTOPRAZOLE 40 MG TAB PO SCH (09:25)
[2020-02-04] MEDS: CITALOPRAM HYDROBR 20 MG TAB PO SCH (09:25)
[2020-02-04] MEDS: CARVEDILOL 3.125 MG TAB PO SCH (09:26)
[2020-02-04] MEDS: ASPirin-EC 81 mg tab PO SCH (09:27)
[2020-02-04] MEDS: LOSARTAN POTASSIUM 25 MG TAB PO SCH (09:27)
[2020-02-04] MEDS: FUROSEMIDE 20 MG TAB PO SCH (09:28)
[2020-02-04] MEDS: buPROPion HCL 75 MG TAB PO SCH (09:28)
[2020-02-04] MEDS: ENOXAPARIN SOD 40 MG/0.4 ML SYRINGE SC SCH (09:29)
[2020-02-04] MEDS: HYDROcodone-ACET 10/325MG TAB PO PRN (09:44)
--- NOTE | 2020-02-04 09:45 | NUR ---
Pain Patient complains of back pain 12/22 and is requesting NORCO. Will medicate per orders. Will continue to monitor Q1 hour and PRN.
--- NOTE | 2020-02-04 10:15 | NUR ---
Pain reassessment Patient resting in bed with eyes closed. No signs or symptoms of distress noted at this time. Will continue to monitor Q1 hour and PRN.
[2020-02-04 10:53] LABS: BUN/Creatinine Ratio 20.4; Calcium 8.6 mg/dL (8.5-10.1); Magnesium 1.8 mg/dL (1.6-2.6); Potassium 3.8 mmol/L (3.5-5.1)
[2020-02-04 12:57] VITALS: BP 114/81
--- NOTE | 2020-02-04 16:02 | NUR ---
Dr. Juarez at bedside Discussing plan of care with patient and this RN. Patient to discharge home later today. Will continue to monitor Q1 hour and PRN.
[2020-02-04 16:37] VITALS: BP 124/74
[2020-02-04 17:14] VITALS: BP 112/64
--- NOTE | 2020-02-04 17:48 | NUR ---
Discharge Discharge instructions given as ordered. Encourage to follow up with PMD as instructed. All questions and concerns addressed. Patient verbalized understanding. Medication reconciliation form completed and copy given to patient. IV removed, catheter intact, pressure dressing applied. splitting machine feeder removed and sent back to ICU. Patient ambulated to private unassisted, with all personal belongings. Patient refused wheelchair ride down. No signs or symptoms of distress noted at this time.
== END 2020-02-04 17:30 | disposition home health service (06) | DRG 313 ==
LOC: EDUNIT# 12:24 → ER 12:24 → EDBD 12:24 → TELE 12:25 → TELE-WESTW 21:23
PROVIDERS: ADMIT Internal Medicine; ATTEND Internal Medicine
DX: R07.89 Other chest pain (principal); N17.0 Acute kidney failure with tubular necrosis; I42.9 Cardiomyopathy, unspecified; I13.0 Hypertensive heart and chronic kidney disease with heart failure and stage 1 through stage 4 chronic kidney disease, or unspecified chronic kidney disease; J96.10 Chronic respiratory failure, unspecified whether with hypoxia or hypercapnia; N18.3 Chronic kidney disease, stage 3 (moderate); K21.9 Gastro-esophageal reflux disease without esophagitis; E03.9 Hypothyroidism, unspecified; E66.9 Obesity, unspecified; B18.2 Chronic viral hepatitis C; E11.22 Type 2 diabetes mellitus with diabetic chronic kidney disease; E78.5 Hyperlipidemia, unspecified; F15.10 Other stimulant abuse, uncomplicated; F17.210 Nicotine dependence, cigarettes, uncomplicated; F31.9 Bipolar disorder, unspecified; I25.10 Atherosclerotic heart disease of native coronary artery without angina pectoris; J44.9 Chronic obstructive pulmonary disease, unspecified; G89.4 Chronic pain syndrome; Z80.3 Family history of malignant neoplasm of breast; Z86.73 Personal history of transient ischemic attack (TIA), and cerebral infarction without residual deficits; Z95.5 Presence of coronary angioplasty implant and graft; Z95.810 Presence of automatic (implantable) cardiac defibrillator; Z99.81 Dependence on supplemental oxygen; Z71.51 Drug abuse counseling and surveillance of drug abuser; Z88.2 Allergy status to sulfonamides; Z88.8 Allergy status to other drugs, medicaments and biological substances; I50.9 Heart failure, unspecified; F41.9 Anxiety disorder, unspecified
CPT/HCPCS: 36415; 71045; 74176; 80048; 80053; 80061; 80307; 81001; 82550; 82962; 83036; 83735; 83880; 84443; 84484; 85025; 85379; 85610; 85652; 85730; 86141; 93005; 93970; 96374; 96375; 96376; G0378; J2405

== ENCOUNTER 2020-06-25 14:10 | Emergency (ER) | payer OTHER, MEDICAID ==
[~2020-06-25] VITALS: Ht 160 cm; Wt 72.6 kg
[2020-06-25 14:40] VITALS: BP 134/79
[2020-06-25] MEDS ORDERED: traMADol HCL 50 MG TAB PO ONE (16:15)
[2020-06-25] MEDS ORDERED: ONDANSETRON ODT 4 MG TAB PO ONE (17:00)
== END 2020-06-25 22:16 | disposition home or self-care (01) ==
LOC: EDBD 14:10 → ER 14:10
DX: S82.852A Displaced trimalleolar fracture of left lower leg, initial encounter for closed fracture (principal); S09.8XXA Other specified injuries of head, initial encounter; I11.0 Hypertensive heart disease with heart failure; I50.9 Heart failure, unspecified; E11.9 Type 2 diabetes mellitus without complications; K21.9 Gastro-esophageal reflux disease without esophagitis; E78.5 Hyperlipidemia, unspecified; I25.2 Old myocardial infarction; Z87.891 Personal history of nicotine dependence; Z20.822 Contact with and (suspected) exposure to COVID-19; W18.39XA Other fall on same level, initial encounter; Y93.89 Activity, other specified; Y92.89 Other specified places as the place of occurrence of the external cause; Y99.8 Other external cause status
CPT/HCPCS: 29515; 36415; 70450; 71046; 73610; 87426; 99285; C9803; U0003

== ENCOUNTER 2020-08-04 14:57 | Emergency (ER) | payer OTHER, MEDICAID ==
[~2020-08-04] VITALS: Ht 162.6 cm; Wt 63.5 kg
[2020-08-04 16:07] LABS: Basophils # (auto) 0 10 ^3/uL (0-0.2); Basophils % (auto) 0.3 % (0.0-2.0); Eosinophils # (auto) 0.2 10 ^3/uL (0-0.8); Eosinophils % (auto) 2.5 % (0.0-7.0); Hematocrit 42.6 % (36.0-46.0); Lymphocytes # (auto) 2.1 10 ^3/uL (0.4-5.4); Lymphocytes % (auto) 31.8 % (10.0-50.0); Mean Corpuscular Hgb Conc. 32.9 g/dL (32.0-36.0); Mean Corpuscular Volume 91.1 fL (80.0-100.0); Monocytes # (auto) 0.6 10 ^3/uL (0-1.3); Monocytes % (auto) 9.2 % (0.0-12.0); Neutrophils # (auto) 3.7 10 ^3/uL (1.6-8.6); Neutrophils % (auto) 56.2 % (37.0-80.0); Nucleated Red Blood Cells % 0.1 %; Platelet Count (auto) 182 10^3/uL (140-450); Red Blood Cells 4.68 10^6/uL (4.0-5.20); Red Cell Distribution Width 17.4 % (11.8-14.3); White Blood Cell 6.5 10^3/uL (4.4-10.8)
[2020-08-04 16:19] LABS: Albumin 3.9 g/dL (3.4-5.0); Anion Gap 7 (5-15); Blood Urea Nitrogen 19 mg/dL (7-18); Calcium 10.8 mg/dL (8.5-10.1); Carbon Dioxide 28 mmol/L (21-32); Chloride 107 mmol/L (98-107); Glucose 88 mg/dL (74-106); Magnesium 1.8 mg/dL (1.6-2.6); Potassium 3.1 mmol/L (3.5-5.1); Sodium 142 mmol/L (136-145)
[2020-08-04 16:23] LABS: INR 1.04 (0.9-1.15)
[2020-08-04 16:25] LABS: Alanine Aminotransferase 22 U/L (13-56); Alkaline Phosphatase 83 U/L (45-117); Aspartate Aminotransferase 18 U/L (15-37); BUN/Creatinine Ratio 14.7; Bilirubin, Total 0.4 mg/dL (0.2-1.0); GFR African American 52 mL/min; GFR Non-African American 43 mL/min; Total Protein 7.5 g/dL (6.4-8.2)
[2020-08-04] MEDS ORDERED: LACTATED RINGER'S 500 ML IV ONE (16:45)
[2020-08-04] MEDS: POTASSIUM CHL 20MEQ/100ML 100 ML IV SCH ×2 (17:17→20:24)
[2020-08-04] MEDS ORDERED: FOLIC ACID 1 MG, MAGNESIUM SULF SDV 50% 8 MEQ, THIAMINE INJ 100 MG in SODIUM CHLORIDE 0... INJ ONE (18:45)
[2020-08-04] MEDS ORDERED: FOLIC ACID 1 MG, MULTIPLE VITAMIN 10 ML, MAGNESIUM SULF SDV 50% 8 MEQ, THIAMINE INJ 100... INJ ONE ×5 (18:45)
[2020-08-04 20:30] VITALS: BP 149/83
== END 2020-08-04 23:14 | disposition home or self-care (01) ==
LOC: EDBD 14:57 → ER 15:01
DX: F10.10 Alcohol abuse, uncomplicated (principal); R07.9 Chest pain, unspecified; R51.9 Headache, unspecified; I11.0 Hypertensive heart disease with heart failure; I50.9 Heart failure, unspecified; J44.9 Chronic obstructive pulmonary disease, unspecified; E11.9 Type 2 diabetes mellitus without complications; K21.9 Gastro-esophageal reflux disease without esophagitis; E78.5 Hyperlipidemia, unspecified; I25.2 Old myocardial infarction; Z98.61 Coronary angioplasty status; Z88.2 Allergy status to sulfonamides; Z87.891 Personal history of nicotine dependence
CPT/HCPCS: 36415; 70450; 71045; 80053; 80320; 83735; 83880; 84484; 85025; 85610; 93005; 96361; 96365; 96366; 99285; J3411; J3475; J3480; J7030

== ENCOUNTER 2020-09-27 18:08 | Inpatient (IN) | payer OTHER, MEDICAID ==
[~2020-09-27] VITALS: Ht 152.4 cm; Wt 73.6 kg
[2020-09-27] MEDS ORDERED: dilTIAZem 25 MG/5 ML VIAL IV ONE (18:30)
[2020-09-27] MEDS ORDERED: ASPirin 81 mg TAB PO ONE (18:30)
[2020-09-27 19:05] LABS: Basophils # (auto) 0.1 10 ^3/uL (0-0.2); Basophils % (auto) 0.7 % (0.0-2.0); Eosinophils # (auto) 0 10 ^3/uL (0-0.8); Eosinophils % (auto) 0.1 % (0.0-7.0); Hemoglobin 12.6 g/dL (12.2-16.2); Lymphocytes % (auto) 9.4 % (10.0-50.0); Mean Corpuscular Hemoglobin 29.8 pg (28.0-32.0); Mean Corpuscular Hgb Conc. 32.4 g/dL (32.0-36.0); Mean Corpuscular Volume 91.9 fL (80.0-100.0); Monocytes # (auto) 0.9 10 ^3/uL (0-1.3); Monocytes % (auto) 8.7 % (0.0-12.0); Neutrophils # (auto) 8.7 10 ^3/uL (1.6-8.6); Neutrophils % (auto) 81.1 % (37.0-80.0); Nucleated Red Blood Cells % 0.4 %; Platelet Count (auto) 229 10^3/uL (140-450); Red Blood Cells 4.24 10^6/uL (4.0-5.20); Red Cell Distribution Width 18.3 % (11.8-14.3); White Blood Cell 10.7 10^3/uL (4.4-10.8)
[2020-09-27 19:20] LABS: Albumin 3.7 g/dL (3.4-5.0); Anion Gap 10 (5-15); Blood Urea Nitrogen 14 mg/dL (7-18); Calcium 10.8 mg/dL (8.5-10.1); Carbon Dioxide 25 mmol/L (21-32); Chloride 102 mmol/L (98-107); Glucose 133 mg/dL (74-106); Magnesium 1.7 mg/dL (1.6-2.6); Potassium 4.1 mmol/L (3.5-5.1); Sodium 137 mmol/L (136-145)
[2020-09-27 19:24] LABS: Alanine Aminotransferase 19 U/L (13-56); Alkaline Phosphatase 84 U/L (45-117); Aspartate Aminotransferase 20 U/L (15-37); BUN/Creatinine Ratio 11.3; GFR African American 54 mL/min; GFR Non-African American 45 mL/min; Total Protein 7.6 g/dL (6.4-8.2)
[2020-09-27] MEDS ORDERED: HYDROcodone-ACET 5/325MG TAB PO ONE (21:45)
[2020-09-28] MEDS ORDERED: NITROGLYCERIN 0.4 MG SL TAB SL PRN (01:30)
[2020-09-28] MEDS ORDERED: ONDANSETRON HCL 4 MG/2 ML VIAL IV PRN (01:30)
[2020-09-28] MEDS ORDERED: ACETAMINOPHEN 325 MG TAB PO PRN (01:30)
[2020-09-28] MEDS ORDERED: DOCUSATE SOD 100 MG CAP PO PRN (01:30)
[2020-09-28] MEDS ORDERED: MORPHINE SULF INJ 2 MG/ML SYRINGE 1ML IV PRN (01:30)
[2020-09-28 02:28] VITALS: BP 151/83
[2020-09-28 05:00] VITALS: BP 136/76
[2020-09-28] MEDS: HYDROcodone-ACET 5/325MG TAB PO PRN (06:26)
[2020-09-28 08:00] VITALS: BP 139/79
[2020-09-28] MEDS ORDERED: ASPirin 81 mg TAB PO SCH (10:00)
[2020-09-28] MEDS ORDERED: FAMOTIDINE 20 MG TAB PO SCH (10:00)
[2020-09-28] MEDS: ZINC SULFATE 220mg CAP or TAB PO SCH (10:08)
[2020-09-28] MEDS: CARVEDILOL 12.5 MG TAB PO SCH ×2 (10:09→22:54)
[2020-09-28] MEDS: dilTIAZem 120MG ER CAP PO SCH (10:09)
[2020-09-28] MEDS: MULTIPLE VITAMIN TAB PO SCH (10:10)
[2020-09-28] MEDS: ASCORBIC ACID 500 MG TAB PO SCH ×2 (10:10→22:55)
[2020-09-28 12:00] VITALS: BP 148/72
[2020-09-28] MEDS ORDERED: OMNIPAQUE ORAL SOLN 500ml 12mg/ml PO ONE (15:02)
[2020-09-28] MEDS ORDERED: LACTULOSE 20Gm/30ML SOLN PO PRN (15:15)
[2020-09-28 16:00] VITALS: BP 114/69
[2020-09-28 17:20] LABS: INR 1.08 (0.9-1.15)
[2020-09-28] MEDS: SUCRALFATE 1 GM/10 ML ORAL SUSP PO SCH ×2 (17:25→22:54)
[2020-09-28] MEDS ORDERED: ENOXAPARIN SOD 40 MG/0.4 ML SYRINGE SC ONE (17:45)
[2020-09-28] MEDS: MORPHINE SULFATE 4 MG/ML SYR/VIAL IV PRN ×2 (18:41→23:07)
[2020-09-28 22:00] VITALS: BP 126/68
[2020-09-28] MEDS: PANTOPRAZOLE 40 MG TAB PO SCH (22:55)
[2020-09-28] MEDS: ATORVASTATIN 20 MG TAB PO SCH (22:55)
[2020-09-29 05:00] VITALS: BP 136/81
[2020-09-29] MEDS: SUCRALFATE 1 GM/10 ML ORAL SUSP PO SCH ×4 (05:54→21:57)
[2020-09-29 06:29] LABS: Basophils # (auto) 0 10 ^3/uL (0-0.2); Basophils % (auto) 0.8 % (0.0-2.0); Eosinophils # (auto) 0.1 10 ^3/uL (0-0.8); Eosinophils % (auto) 2.3 % (0.0-7.0); Hemoglobin 11.6 g/dL (12.2-16.2); Lymphocytes # (auto) 1.2 10 ^3/uL (0.4-5.4); Lymphocytes % (auto) 24.9 % (10.0-50.0); Mean Corpuscular Hemoglobin 29.6 pg (28.0-32.0); Mean Corpuscular Hgb Conc. 32.1 g/dL (32.0-36.0); Mean Corpuscular Volume 92.3 fL (80.0-100.0); Monocytes # (auto) 0.7 10 ^3/uL (0-1.3); Monocytes % (auto) 14.2 % (0.0-12.0); Neutrophils # (auto) 2.9 10 ^3/uL (1.6-8.6); Neutrophils % (auto) 57.8 % (37.0-80.0); Nucleated Red Blood Cells % 0.2 %; Platelet Count (auto) 156 10^3/uL (140-450)
[2020-09-29 06:52] LABS: Potassium 3.8 mmol/L (3.5-5.1)
[2020-09-29 06:59] LABS: Albumin 3.2 g/dL (3.4-5.0); BUN/Creatinine Ratio 13.8; Bilirubin, Total 0.8 mg/dL (0.2-1.0); Calcium 10.5 mg/dL (8.5-10.1); Total Protein 6.5 g/dL (6.4-8.2)
[2020-09-29] MEDS ORDERED: LIDOCAINE VISCOUS 2% 15ML UD ONE (07:58)
[2020-09-29] MEDS ORDERED: SODIUM CHLORIDE LOCK 10 ML ONE (07:58)
[2020-09-29] MEDS ORDERED: MIDAZOLAM HCL 5 MG/ML-1ML VIAL ONE (07:58)
[2020-09-29] MEDS ORDERED: diphenhdrAMINE HCL 50 MG/1 ML VL ONE (07:58)
[2020-09-29] MEDS ORDERED: fentaNYL CITRATE 100 MCG/2 ML VL ONE (07:59)
[2020-09-29 09:00] VITALS: BP 115/74
[2020-09-29] MEDS ORDERED: ENOXAPARIN SOD 40 MG/0.4 ML SYRINGE SC SCH (10:00)
[2020-09-29] MEDS: MORPHINE SULFATE 4 MG/ML SYR/VIAL IV PRN ×2 (12:17→21:49)
[2020-09-29] MEDS: MULTIPLE VITAMIN TAB PO SCH (12:18)
[2020-09-29] MEDS: PANTOPRAZOLE 40 MG TAB PO SCH ×2 (12:18→21:58)
[2020-09-29] MEDS: ASCORBIC ACID 500 MG TAB PO SCH ×2 (12:18→21:58)
[2020-09-29] MEDS: CARVEDILOL 12.5 MG TAB PO SCH ×2 (12:18→21:57)
[2020-09-29] MEDS: dilTIAZem 120MG ER CAP PO SCH (12:19)
[2020-09-29] MEDS: ZINC SULFATE 220mg CAP or TAB PO SCH (12:19)
[2020-09-29 13:00] VITALS: BP_SYST 133; BP_SYST 170; BP_DIAS 129; BP_DIAS 84
[2020-09-29 17:00] VITALS: BP 116/68
[2020-09-29] MEDS: HYDROcodone-ACET 5/325MG TAB PO PRN ×2 (17:17→22:55)
[2020-09-29 21:11] VITALS: BP 112/68
[2020-09-29] MEDS: MUPIROCIN 2% OINT 15gm or 22gm EACHNOSTRI SCH (21:56)
[2020-09-29] MEDS: ATORVASTATIN 20 MG TAB PO SCH (21:58)
[2020-09-29 22:28] LABS: Urine Bacteria FEW /hpf (None Seen); Urine Blood Negative /uL (Negative); Urine Specific Gravity 1.015 (1.001-1.035); Urine WBC 9 /hpf (0 - 5)
[2020-09-30] MEDS: MORPHINE SULFATE 4 MG/ML SYR/VIAL IV PRN ×4 (01:50→21:09)
[2020-09-30 04:51] VITALS: BP 126/71
[2020-09-30] MEDS: SUCRALFATE 1 GM/10 ML ORAL SUSP PO SCH ×4 (06:40→21:16)
[2020-09-30 07:09] LABS: Basophils # (auto) 0.1 10 ^3/uL (0-0.2); Basophils % (auto) 1.2 % (0.0-2.0); Eosinophils # (auto) 0.1 10 ^3/uL (0-0.8); Eosinophils % (auto) 2.3 % (0.0-7.0); Hematocrit 35.6 % (36.0-46.0); Hemoglobin 11.6 g/dL (12.2-16.2); Lymphocytes % (auto) 22.6 % (10.0-50.0); Mean Corpuscular Hemoglobin 29.7 pg (28.0-32.0); Mean Corpuscular Hgb Conc. 32.5 g/dL (32.0-36.0); Mean Corpuscular Volume 91.4 fL (80.0-100.0); Monocytes # (auto) 0.6 10 ^3/uL (0-1.3); Monocytes % (auto) 14.4 % (0.0-12.0); Neutrophils # (auto) 2.7 10 ^3/uL (1.6-8.6); Neutrophils % (auto) 59.5 % (37.0-80.0); Nucleated Red Blood Cells % 0.2 %; Platelet Count (auto) 167 10^3/uL (140-450); Red Blood Cells 3.89 10^6/uL (4.0-5.20); Red Cell Distribution Width 18.8 % (11.8-14.3); White Blood Cell 4.5 10^3/uL (4.4-10.8)
[2020-09-30 07:26] LABS: Potassium 4.3 mmol/L (3.5-5.1)
[2020-09-30 07:38] LABS: BUN/Creatinine Ratio 18.1
[2020-09-30 07:39] LABS: Albumin 3.3 g/dL (3.4-5.0); Bilirubin, Total 0.5 mg/dL (0.2-1.0); Calcium 11.7 mg/dL (8.5-10.1); Total Protein 6.5 g/dL (6.4-8.2)
[2020-09-30 09:00] VITALS: BP 124/65
[2020-09-30] MEDS: MUPIROCIN 2% OINT 15gm or 22gm EACHNOSTRI SCH ×2 (09:04→21:16)
[2020-09-30] MEDS: ZINC SULFATE 220mg CAP or TAB PO SCH (09:05)
[2020-09-30] MEDS: MULTIPLE VITAMIN TAB PO SCH (09:12)
[2020-09-30] MEDS: CARVEDILOL 12.5 MG TAB PO SCH ×2 (09:12→21:16)
[2020-09-30] MEDS: PANTOPRAZOLE 40 MG TAB PO SCH ×2 (09:12→21:17)
[2020-09-30] MEDS: ASCORBIC ACID 500 MG TAB PO SCH ×2 (09:13→21:17)
[2020-09-30] MEDS: dilTIAZem 120MG ER CAP PO SCH (10:57)
[2020-09-30 13:00] VITALS: BP 105/59
[2020-09-30 17:00] VITALS: BP 130/70
[2020-09-30] MEDS: ATORVASTATIN 20 MG TAB PO SCH (21:17)
[2020-09-30 21:30] VITALS: BP 115/74
[2020-09-30] MEDS: HYDROcodone-ACET 5/325MG TAB PO PRN (22:43)
[2020-10-01] MEDS: MORPHINE SULFATE 4 MG/ML SYR/VIAL IV PRN ×3 (01:06→11:04)
[2020-10-01] MEDS: HYDROcodone-ACET 5/325MG TAB PO PRN ×3 (03:24→15:27)
[2020-10-01 05:00] VITALS: BP 130/83
[2020-10-01] MEDS: SUCRALFATE 1 GM/10 ML ORAL SUSP PO SCH ×3 (06:46→18:35)
[2020-10-01 06:56] LABS: Basophils # (auto) 0 10 ^3/uL (0-0.2); Basophils % (auto) 0.8 % (0.0-2.0); Eosinophils # (auto) 0.1 10 ^3/uL (0-0.8); Hematocrit 37.5 % (36.0-46.0); Lymphocytes # (auto) 1.2 10 ^3/uL (0.4-5.4); Lymphocytes % (auto) 24.5 % (10.0-50.0); Mean Corpuscular Hemoglobin 29.8 pg (28.0-32.0); Mean Corpuscular Volume 93.2 fL (80.0-100.0); Monocytes # (auto) 0.7 10 ^3/uL (0-1.3); Neutrophils # (auto) 2.9 10 ^3/uL (1.6-8.6); Neutrophils % (auto) 58.7 % (37.0-80.0); Nucleated Red Blood Cells % 0.1 %; Platelet Count (auto) 175 10^3/uL (140-450); Red Blood Cells 4.03 10^6/uL (4.0-5.20); Red Cell Distribution Width 18.4 % (11.8-14.3); White Blood Cell 4.9 10^3/uL (4.4-10.8)
[2020-10-01 07:17] LABS: Calcium 10.7 mg/dL (8.5-10.1)
[2020-10-01 07:20] LABS: BUN/Creatinine Ratio 17.4
[2020-10-01 08:26] VITALS: BP 120/77
[2020-10-01 08:30] VITALS: BP 120/77
[2020-10-01] MEDS: ZINC SULFATE 220mg CAP or TAB PO SCH (09:00)
[2020-10-01] MEDS: CARVEDILOL 12.5 MG TAB PO SCH (09:01)
[2020-10-01] MEDS: dilTIAZem 120MG ER CAP PO SCH (09:01)
[2020-10-01] MEDS: ASCORBIC ACID 500 MG TAB PO SCH (09:01)
[2020-10-01] MEDS: PANTOPRAZOLE 40 MG TAB PO SCH (09:02)
[2020-10-01] MEDS: MULTIPLE VITAMIN TAB PO SCH (09:02)
[2020-10-01] MEDS: MUPIROCIN 2% OINT 15gm or 22gm EACHNOSTRI SCH (09:02)
[2020-10-01 13:00] VITALS: BP 155/66
[2020-10-01 14:09] VITALS: BP 155/66
[2020-10-01 17:00] VITALS: BP 109/74
== END 2020-10-01 18:35 | disposition home or self-care (01) | DRG 391 ==
LOC: ER 18:08 → EDBD 18:08 → TELE-EAST 09-28 01:31
PROVIDERS: ADMIT Nurse Practitioner Family; ATTEND Internal Medicine
PROC: 0DB68ZX Excision of Stomach, Via Natural or Artificial Opening Endoscopic, Diagnostic (ICD-10-PCS; principal; 2020-09-29 08:58)
DX: K29.00 Acute gastritis without bleeding (principal); N17.0 Acute kidney failure with tubular necrosis; I50.32 Chronic diastolic (congestive) heart failure; I13.0 Hypertensive heart and chronic kidney disease with heart failure and stage 1 through stage 4 chronic kidney disease, or unspecified chronic kidney disease; D68.69 Other thrombophilia; I48.91 Unspecified atrial fibrillation; E66.9 Obesity, unspecified; Z68.31 Body mass index [BMI] 31.0-31.9, adult; D63.8 Anemia in other chronic diseases classified elsewhere; E03.9 Hypothyroidism, unspecified; E78.5 Hyperlipidemia, unspecified; G89.4 Chronic pain syndrome; F17.210 Nicotine dependence, cigarettes, uncomplicated; I25.10 Atherosclerotic heart disease of native coronary artery without angina pectoris; F03.90 Unspecified dementia, unspecified severity, without behavioral disturbance, psychotic disturbance, mood disturbance, and anxiety; Z20.822 Contact with and (suspected) exposure to COVID-19; J44.9 Chronic obstructive pulmonary disease, unspecified; E83.52 Hypercalcemia; R13.10 Dysphagia, unspecified; Z79.82 Long term (current) use of aspirin; Z80.3 Family history of malignant neoplasm of breast; Z95.5 Presence of coronary angioplasty implant and graft; I25.2 Old myocardial infarction; Z95.810 Presence of automatic (implantable) cardiac defibrillator; Z88.8 Allergy status to other drugs, medicaments and biological substances; Z88.2 Allergy status to sulfonamides; N18.31 Chronic kidney disease, stage 3a; Z22.322 Carrier or suspected carrier of Methicillin resistant Staphylococcus aureus
CPT/HCPCS: 36415; 43239; 71045; 74176; 76536; 80048; 80053; 81001; 83735; 83880; 83970; 84443; 84484; 85025; 85379; 85610; 86850; 86900; 86901; 87081; 87426; 93005; 93306; 93970; 96374; G0378; J2250

== ENCOUNTER 2020-10-18 14:21 | Inpatient (IN) | payer OTHER, MEDICAID ==
[~2020-10-18] VITALS: Ht 157.5 cm; Wt 70.9 kg
[~2020-10-18 14:21] MED LIST changes: -ASPI-231 PO; +ASPI1TAB20 PO; +BUPR75TA10 PO; -BUPR75TA9 PO; -TIZA2CAP12 PO
[2020-10-18] MEDS ORDERED: ONDANSETRON HCL 4 MG/2 ML VIAL IV ONE ×2 (16:00→18:00)
[2020-10-18] MEDS ORDERED: MORPHINE SULFATE INJECTION 2 MG/ML SYRG IV ONE ×2 (16:00→18:00)
[2020-10-18 16:14] LABS: Basophils # (auto) 0.1 10 ^3/uL (0-0.2); Basophils % (auto) 1.2 % (0.0-2.0); Eosinophils # (auto) 0.1 10 ^3/uL (0-0.8); Eosinophils % (auto) 0.8 % (0.0-7.0); Hematocrit 42.6 % (36.0-46.0); Hemoglobin 13.5 g/dL (12.2-16.2); Lymphocytes # (auto) 1.5 10 ^3/uL (0.4-5.4); Lymphocytes % (auto) 24.1 % (10.0-50.0); Mean Corpuscular Hemoglobin 28.3 pg (28.0-32.0); Mean Corpuscular Hgb Conc. 31.6 g/dL (32.0-36.0); Mean Corpuscular Volume 89.5 fL (80.0-100.0); Monocytes # (auto) 0.7 10 ^3/uL (0-1.3); Monocytes % (auto) 11.4 % (0.0-12.0); Neutrophils % (auto) 62.5 % (37.0-80.0); Nucleated Red Blood Cells % 0.2 %; Red Blood Cells 4.76 10^6/uL (4.0-5.20); Red Cell Distribution Width 17.9 % (11.8-14.3); White Blood Cell 6.4 10^3/uL (4.4-10.8)
[2020-10-18 16:25] LABS: INR 1.05 (0.9-1.15); Partial Thromboplastin Time 24.5 sec (23.0-31.2)
[2020-10-18 16:34] LABS: Alanine Aminotransferase 20 U/L (13-56); Albumin 3.7 g/dL (3.4-5.0); Anion Gap 6 (5-15); Aspartate Aminotransferase 21 U/L (15-37); BUN/Creatinine Ratio 19.7; Blood Urea Nitrogen 23 mg/dL (7-18); Calcium 10.8 mg/dL (8.5-10.1); Carbon Dioxide 27 mmol/L (21-32); Chloride 102 mmol/L (98-107); GFR African American 58 mL/min; GFR Non-African American 48 mL/min; Glucose 87 mg/dL (74-106); Potassium 3.8 mmol/L (3.5-5.1); Sodium 135 mmol/L (136-145)
[2020-10-18 16:39] LABS: Alkaline Phosphatase 72 U/L (45-117); Bilirubin, Total 0.5 mg/dL (0.2-1.0); Total Protein 7.3 g/dL (6.4-8.2)
[2020-10-18] MEDS ORDERED: TETANUS-DIPTH-ACEL PERTUSSIS 0.5ML SYR Tdap IM ONE (18:00)
[2020-10-18] MEDS ORDERED: LABETALOL HCL 5 MG/ML 4ML SYRINGE IV PRN (19:45)
[2020-10-18] MEDS ORDERED: ONDANSETRON HCL 4 MG/2 ML VIAL IV PRN (19:45)
[2020-10-18] MEDS ORDERED: DOCUSATE CALCIUM 240 MG CAP PO PRN (19:45)
[2020-10-18] MEDS ORDERED: MORPHINE SULFATE INJECTION 2 MG/ML SYRG IV PRN (19:45)
[2020-10-18] MEDS ORDERED: ACETAMINOPHEN 500 MG TAB PO PRN (19:45)
[2020-10-18] MEDS ORDERED: NITROGLYCERIN 0.4 MG SL TAB SL PRN (19:45)
[2020-10-18 19:51] VITALS: BP 109/58
[2020-10-18] MEDS: BUDESONIDE (INHALATION) 0.5 MG/2 ML NEB NEB SCH (21:00)
[2020-10-18] MEDS: ALBUTEROL SULF 2.5 MG/0.5ML(0.5%) NEB SOLN NEB PRN (21:00)
[2020-10-18] MEDS: LORazepam 0.5 MG TAB PO PRN (23:00)
[2020-10-18] MEDS: CARVEDILOL 3.125 MG TAB PO SCH (23:16)
[2020-10-19] MEDS: MORPHINE SULFATE INJECTION 2 MG/ML SYRG IV PRN ×5 (00:31→18:10)
[2020-10-19 00:34] VITALS: BP 127/86
[2020-10-19] MEDS: ALBUTEROL SULF 2.5 MG/0.5ML(0.5%) NEB SOLN NEB PRN ×2 (06:09→19:44)
[2020-10-19] MEDS: BUDESONIDE (INHALATION) 0.5 MG/2 ML NEB NEB SCH ×2 (06:09→19:44)
[2020-10-19 06:12] VITALS: BP 110/72
[2020-10-19 08:00] VITALS: BP 117/69
[2020-10-19] MEDS: CARVEDILOL 3.125 MG TAB PO SCH ×2 (08:24→18:09)
[2020-10-19] MEDS: PANTOPRAZOLE 40 MG TAB PO SCH (08:24)
[2020-10-19] MEDS: CITALOPRAM HYDROBR 20 MG TAB PO SCH (08:24)
[2020-10-19] MEDS: BUPROPION HCL 150 MG PO SCH (08:25)
[2020-10-19] MEDS: ENOXAPARIN SOD 40 MG/0.4 ML SYRINGE SC SCH (08:25)
[2020-10-19 09:19] LABS: Basophils # (auto) 0 10 ^3/uL (0-0.2); Basophils % (auto) 0.7 % (0.0-2.0); Eosinophils # (auto) 0.1 10 ^3/uL (0-0.8); Hemoglobin 12.3 g/dL (12.2-16.2); Lymphocytes # (auto) 1.4 10 ^3/uL (0.4-5.4); Monocytes # (auto) 0.6 10 ^3/uL (0-1.3); Neutrophils # (auto) 3.5 10 ^3/uL (1.6-8.6)
[2020-10-19 09:21] LABS: Eosinophils % (auto) 1.5 % (0.0-7.0); Hematocrit 39.5 % (36.0-46.0); Lymphocytes % (auto) 24.4 % (10.0-50.0); Mean Corpuscular Hemoglobin 28.9 pg (28.0-32.0); Mean Corpuscular Hgb Conc. 31.1 g/dL (32.0-36.0); Mean Corpuscular Volume 92.7 fL (80.0-100.0); Monocytes % (auto) 10.6 % (0.0-12.0); Neutrophils % (auto) 62.8 % (37.0-80.0); Nucleated Red Blood Cells % 0.2 %; Red Blood Cells 4.26 10^6/uL (4.0-5.20); Red Cell Distribution Width 17.9 % (11.8-14.3); White Blood Cell 5.6 10^3/uL (4.4-10.8)
[2020-10-19 09:37] LABS: Albumin 3.3 g/dL (3.4-5.0); Calcium 10.8 mg/dL (8.5-10.1)
[2020-10-19 09:41] LABS: Bilirubin, Total 0.4 mg/dL (0.2-1.0); Total Protein 6.4 g/dL (6.4-8.2)
[2020-10-19] MEDS ORDERED: chlordiazePOXIDE HCL 25 MG CAP PO PRN (10:00)
[2020-10-19 11:21] LABS: Urine Bacteria FEW /hpf (None Seen); Urine Blood 1+ /uL (Negative); Urine Hyaline Cast FEW /lpf (0 - 2); Urine Specific Gravity 1.021 (1.001-1.035); Urine WBC 27 /hpf (0 - 5)
[2020-10-19 11:32] LABS: Alcohol, Urine < 3.0 mg/dL (0-10); Amphetamine Screen, Urine POSITIVE (NEGATIVE); Barbiturate Scree,Urine NEGATIVE (NEGATIVE); Benzodiazephine Screen, Urine NEGATIVE (NEGATIVE); Cannabinoid Screen, Urine NEGATIVE (NEGATIVE); Cocaine Screen, Urine NEGATIVE (NEGATIVE); Opiate Scree,Urine POSITIVE (NEGATIVE); Phencyclidine Screen, Urine NEGATIVE (NEGATIVE)
[2020-10-19 12:00] VITALS: BP 105/64
[2020-10-19] MEDS: HYDROcodone-ACET 10/325MG TAB PO PRN (15:18)
[2020-10-19 16:00] VITALS: BP 105/69
[2020-10-19 23:43] VITALS: BP 128/71
[2020-10-20] MEDS: LORazepam 0.5 MG TAB PO PRN (01:37)
[2020-10-20] MEDS: HYDROcodone-ACET 10/325MG TAB PO PRN ×2 (01:38→13:14)
[2020-10-20 05:51] VITALS: BP 110/70
[2020-10-20 07:12] LABS: Basophils # (auto) 0.1 10 ^3/uL (0-0.2); Basophils % (auto) 1.1 % (0.0-2.0); Eosinophils # (auto) 0.1 10 ^3/uL (0-0.8); Eosinophils % (auto) 1.8 % (0.0-7.0); Hematocrit 38.9 % (36.0-46.0); Hemoglobin 12.5 g/dL (12.2-16.2); Lymphocytes # (auto) 1.6 10 ^3/uL (0.4-5.4); Mean Corpuscular Hemoglobin 28.7 pg (28.0-32.0); Mean Corpuscular Hgb Conc. 32.2 g/dL (32.0-36.0); Monocytes # (auto) 0.8 10 ^3/uL (0-1.3); Monocytes % (auto) 13.5 % (0.0-12.0); Neutrophils # (auto) 3.7 10 ^3/uL (1.6-8.6); Neutrophils % (auto) 58.6 % (37.0-80.0); Nucleated Red Blood Cells % 0.1 %; Red Blood Cells 4.37 10^6/uL (4.0-5.20); Red Cell Distribution Width 17.9 % (11.8-14.3); White Blood Cell 6.3 10^3/uL (4.4-10.8)
[2020-10-20 07:23] LABS: Albumin 3.2 g/dL (3.4-5.0); Anion Gap 4 (5-15); Blood Urea Nitrogen 22 mg/dL (7-18); Calcium 10.7 mg/dL (8.5-10.1); Carbon Dioxide 29 mmol/L (21-32); Chloride 105 mmol/L (98-107); Glucose 92 mg/dL (74-106); Potassium 4.2 mmol/L (3.5-5.1); Sodium 138 mmol/L (136-145)
[2020-10-20 07:26] LABS: Alanine Aminotransferase 17 U/L (13-56); Alkaline Phosphatase 64 U/L (45-117); Aspartate Aminotransferase 14 U/L (15-37); BUN/Creatinine Ratio 22.2; Bilirubin, Total 0.3 mg/dL (0.2-1.0); GFR African American 70 mL/min; GFR Non-African American 58 mL/min; Total Protein 6.5 g/dL (6.4-8.2)
[2020-10-20 08:15] VITALS: BP 116/71
[2020-10-20 09:00] VITALS: BP 116/71
[2020-10-20] MEDS: CITALOPRAM HYDROBR 20 MG TAB PO SCH (09:55)
[2020-10-20] MEDS: BUPROPION HCL 150 MG PO SCH (09:55)
[2020-10-20] MEDS: CARVEDILOL 3.125 MG TAB PO SCH (09:55)
[2020-10-20] MEDS: MORPHINE SULFATE INJECTION 2 MG/ML SYRG IV PRN (09:56)
[2020-10-20] MEDS: ENOXAPARIN SOD 40 MG/0.4 ML SYRINGE SC SCH (09:56)
[2020-10-20] MEDS: PANTOPRAZOLE 40 MG TAB PO SCH (09:56)
[2020-10-20] MEDS ORDERED: FUROSEMIDE 20 MG TAB PO SCH (10:00)
[2020-10-20] MEDS: ALBUTEROL SULF 2.5 MG/0.5ML(0.5%) NEB SOLN NEB PRN (11:33)
[2020-10-20] MEDS: BUDESONIDE (INHALATION) 0.5 MG/2 ML NEB NEB SCH (11:33)
[2020-10-20] MEDS ORDERED: CEPHALEXIN 250 MG CAP PO SCH (12:00)
[2020-10-20 13:00] VITALS: BP 111/69
[2020-10-20 14:45] VITALS: BP 116/71
== END 2020-10-20 15:45 | disposition home or self-care (01) | DRG 308 ==
LOC: ER 14:21 → EDUNIT# 14:21 → EDBD 14:21 → TELE 19:33 → TELE-CENTR 21:59
PROVIDERS: ADMIT Family Medicine; ATTEND Internal Medicine
PROC: 4B02XSZ Measurement of Cardiac Pacemaker, External Approach (ICD-10-PCS; principal; 2020-10-20)
DX: I48.91 Unspecified atrial fibrillation (principal); N17.0 Acute kidney failure with tubular necrosis; E87.1 Hypo-osmolality and hyponatremia; D68.69 Other thrombophilia; I13.0 Hypertensive heart and chronic kidney disease with heart failure and stage 1 through stage 4 chronic kidney disease, or unspecified chronic kidney disease; I69.354 Hemiplegia and hemiparesis following cerebral infarction affecting left non-dominant side; N39.0 Urinary tract infection, site not specified; S20.212A Contusion of left front wall of thorax, initial encounter; I25.10 Atherosclerotic heart disease of native coronary artery without angina pectoris; Z20.822 Contact with and (suspected) exposure to COVID-19; S73.102A Unspecified sprain of left hip, initial encounter; S00.83XA Contusion of other part of head, initial encounter; S83.8X2A Sprain of other specified parts of left knee, initial encounter; I50.9 Heart failure, unspecified; F17.210 Nicotine dependence, cigarettes, uncomplicated; E03.9 Hypothyroidism, unspecified; E78.5 Hyperlipidemia, unspecified; S00.33XA Contusion of nose, initial encounter; S70.02XA Contusion of left hip, initial encounter; S80.02XA Contusion of left knee, initial encounter; G89.4 Chronic pain syndrome; J44.9 Chronic obstructive pulmonary disease, unspecified; W18.39XA Other fall on same level, initial encounter; I25.2 Old myocardial infarction; Y92.481 Parking lot as the place of occurrence of the external cause; Z80.3 Family history of malignant neoplasm of breast; Z79.01 Long term (current) use of anticoagulants; Z88.8 Allergy status to other drugs, medicaments and biological substances; Z88.2 Allergy status to sulfonamides; Z95.5 Presence of coronary angioplasty implant and graft; Y93.89 Activity, other specified; Y99.8 Other external cause status; N18.31 Chronic kidney disease, stage 3a
CPT/HCPCS: 36415; 70450; 70486; 71101; 71250; 72125; 72192; 73700; 80053; 80307; 81001; 83735; 84443; 84484; 85025; 85610; 85730; 87426; 90471; 90715; 93005; 94640; 96374; 96375; G0378; J2405

== ENCOUNTER 2020-12-09 11:48 | Emergency (ER) | payer OTHER, MEDICAID ==
[~2020-12-09] VITALS: Ht 162.6 cm; Wt 68.0 kg
[~2020-12-09 11:48] MED LIST changes: +ASPI-231 PO; -ASPI1TAB20 PO; -BUPR75TA10 PO; +BUPR75TA9 PO; -LEVO750T8 PO
[2020-12-09 13:19] LABS: Basophils # (auto) 0.1 10 ^3/uL (0-0.2); Basophils % (auto) 0.9 % (0.0-2.0); Eosinophils # (auto) 0.1 10 ^3/uL (0-0.8); Eosinophils % (auto) 0.9 % (0.0-7.0); Hematocrit 40.5 % (36.0-46.0); Hemoglobin 13.5 g/dL (12.2-16.2); Lymphocytes # (auto) 2.2 10 ^3/uL (0.4-5.4); Lymphocytes % (auto) 24.1 % (10.0-50.0); Mean Corpuscular Hemoglobin 30.1 pg (28.0-32.0); Mean Corpuscular Hgb Conc. 33.2 g/dL (32.0-36.0); Mean Corpuscular Volume 90.5 fL (80.0-100.0); Monocytes % (auto) 11.1 % (0.0-12.0); Neutrophils # (auto) 5.7 10 ^3/uL (1.6-8.6); Nucleated Red Blood Cells % 0.2 %; Platelet Count (auto) 180 10^3/uL (140-450); Red Blood Cells 4.48 10^6/uL (4.0-5.20); Red Cell Distribution Width 17.8 % (11.8-14.3)
[2020-12-09 13:31] LABS: Albumin 3.9 g/dL (3.4-5.0); Anion Gap 10 (5-15); Blood Urea Nitrogen 22 mg/dL (7-18); Calcium 11.9 mg/dL (8.5-10.1); Carbon Dioxide 24 mmol/L (21-32); Chloride 106 mmol/L (98-107); Glucose 96 mg/dL (74-106); Potassium 3.6 mmol/L (3.5-5.1); Sodium 140 mmol/L (136-145)
[2020-12-09 13:36] LABS: Alanine Aminotransferase 19 U/L (13-56); Alkaline Phosphatase 79 U/L (45-117); Aspartate Aminotransferase 19 U/L (15-37); BUN/Creatinine Ratio 16.2; Bilirubin, Total 0.6 mg/dL (0.2-1.0); GFR African American 49 mL/min; GFR Non-African American 40 mL/min; Total Protein 7.4 g/dL (6.4-8.2)
[2020-12-09 15:38] LABS: Urine Bacteria NONE SEEN /hpf (None Seen); Urine Blood Negative /uL (Negative); Urine Hyaline Cast FEW /lpf (0 - 2); Urine WBC 4 /hpf (0 - 5)
[2020-12-09] MEDS ORDERED: KETOROLAC TROMETH 30 MG/ML 1ML VIAL IV ONE (15:45)
[2020-12-09 16:45] VITALS: BP 171/61
== END 2020-12-09 17:23 | disposition home or self-care (01) ==
LOC: ER 11:48 → EDBD 11:48 → ER 17:23
DX: N39.0 Urinary tract infection, site not specified (principal); J44.1 Chronic obstructive pulmonary disease with (acute) exacerbation; I11.0 Hypertensive heart disease with heart failure; I50.9 Heart failure, unspecified; R06.03 Acute respiratory distress; F17.210 Nicotine dependence, cigarettes, uncomplicated; E78.5 Hyperlipidemia, unspecified; I25.2 Old myocardial infarction; Z20.822 Contact with and (suspected) exposure to COVID-19; Z88.2 Allergy status to sulfonamides
CPT/HCPCS: 36415; 71045; 74176; 80053; 81001; 83880; 84484; 85025; 85049; 87426; 93005; 96374; 99285; J1885

== ENCOUNTER 2021-08-06 00:44 | Emergency (ER) | payer OTHER, MEDICAID ==
[~2021-08-06] VITALS: Ht 152.4 cm; Wt 63.5 kg
[~2021-08-06 00:44] MED LIST changes: -ASPI-231 PO; +ASPI1TAB20 PO; +BUPR75TA10 PO; -BUPR75TA9 PO
[2021-08-06 01:52] LABS: Basophils # (auto) 0.1 10 ^3/uL (0-0.2); Eosinophils # (auto) 0.1 10 ^3/uL (0-0.8); Eosinophils % (auto) 1.8 % (0.0-7.0); Hematocrit 43.4 % (36.0-46.0); Hemoglobin 14.4 g/dL (12.2-16.2); Lymphocytes # (auto) 2.3 10 ^3/uL (0.4-5.4); Lymphocytes % (auto) 29.5 % (10.0-50.0); Mean Corpuscular Hemoglobin 29.9 pg (28.0-32.0); Mean Corpuscular Hgb Conc. 33.2 g/dL (32.0-36.0); Mean Corpuscular Volume 90.3 fL (80.0-100.0); Monocytes # (auto) 0.8 10 ^3/uL (0-1.3); Neutrophils # (auto) 4.5 10 ^3/uL (1.6-8.6); Neutrophils % (auto) 57.7 % (37.0-80.0); Nucleated Red Blood Cells % 0.1 %; Red Blood Cells 4.81 10^6/uL (4.0-5.20); Red Cell Distribution Width 16.2 % (11.8-14.3); White Blood Cell 7.8 10^3/uL (4.4-10.8)
[2021-08-06 02:06] LABS: Albumin 4.2 g/dL (3.4-5.0); Calcium 11.9 mg/dL (8.5-10.1); Potassium 4.4 mmol/L (3.5-5.1)
[2021-08-06 02:16] LABS: BUN/Creatinine Ratio 30.6; Bilirubin, Total 0.6 mg/dL (0.2-1.0); Total Protein 7.8 g/dL (6.4-8.2)
[2021-08-06] MEDS ORDERED: diphenhdrAMINE HCL 50 MG/1 ML VL IV ONE (02:45)
[2021-08-06] MEDS ORDERED: KETOROLAC TROMETH 30 MG/ML 1ML VIAL IV ONE (02:45)
[2021-08-06 04:27] VITALS: BP 166/74
== END 2021-08-06 04:10 | disposition home or self-care (01) ==
LOC: EDBD 00:44 → ER 00:47
DX: F41.8 Other specified anxiety disorders (principal); R07.89 Other chest pain; I13.0 Hypertensive heart and chronic kidney disease with heart failure and stage 1 through stage 4 chronic kidney disease, or unspecified chronic kidney disease; N18.30 Chronic kidney disease, stage 3 unspecified; I50.9 Heart failure, unspecified; I25.10 Atherosclerotic heart disease of native coronary artery without angina pectoris; I48.91 Unspecified atrial fibrillation; I25.2 Old myocardial infarction; J44.9 Chronic obstructive pulmonary disease, unspecified; E78.5 Hyperlipidemia, unspecified; E03.9 Hypothyroidism, unspecified; F17.210 Nicotine dependence, cigarettes, uncomplicated; Z95.0 Presence of cardiac pacemaker; Z90.89 Acquired absence of other organs; Z79.82 Long term (current) use of aspirin; Z79.899 Other long term (current) drug therapy; Z88.8 Allergy status to other drugs, medicaments and biological substances; Z88.2 Allergy status to sulfonamides
CPT/HCPCS: 36415; 71045; 80053; 83880; 84484; 85025; 93005; 96374; 96375; 99285; J1200; J1885

== ENCOUNTER 2022-02-19 08:01 | Inpatient (IN) | payer OTHER, MEDICAID ==
[~2022-02-19] VITALS: Ht 186.2 cm; Wt 73.0 kg
[2022-02-19] MEDS ORDERED: ALBUTEROL SULF 2.5 MG/0.5ML(0.5%) NEB SOLN ONE (08:05)
[2022-02-19] MEDS ORDERED: IPRATROPIUM BROM 0.5 MG/2.5ML INH SOL ONE (08:05)
[2022-02-19] MEDS ORDERED: IPRATROPIUM BROM 0.5 MG/2.5ML INH SOL NEB ONE (08:15)
[2022-02-19] MEDS ORDERED: ALBUTEROL SULF 2.5 MG/0.5ML(0.5%) NEB SOLN NEB ONE (08:15)
[2022-02-19] MEDS ORDERED: SODIUM CHLORIDE 0.9% 1,000 ML IV ONE (09:00)
[2022-02-19 09:21] LABS: Mean Corpuscular Hgb Conc. 29.5 g/dL (32.0-36.0)
[2022-02-19 09:35] LABS: Albumin 3.4 g/dL (3.4-5.0); Calcium 8.4 mg/dL (8.5-10.1); Magnesium 2.4 mg/dL (1.6-2.6); Potassium 4.7 mmol/L (3.5-5.1)
[2022-02-19 09:39] LABS: BUN/Creatinine Ratio 14.5; Bilirubin, Total 0.4 mg/dL (0.2-1.0); Total Protein 6.9 g/dL (6.4-8.2)
[2022-02-19] MEDS ORDERED: FUROSEMIDE 40 MG/4 ML VIAL IV ONE (09:45)
[2022-02-19 10:00] LABS: Hemoglobin 11.4 g/dL (12.2-16.2)
[2022-02-19 10:02] LABS: Hematocrit 38.7 % (36.0-46.0); Mean Corpuscular Hemoglobin 25.6 pg (28.0-32.0); Mean Corpuscular Volume 86.6 fL (80.0-100.0); Red Blood Cells 4.47 10^6/uL (4.0-5.20); Red Cell Distribution Width 19.3 % (11.8-14.3); White Blood Cell 12.9 10^3/uL (4.4-10.8)
[2022-02-19 10:41] LABS: Band Neutrophils % (manual) 0; Basophils % (manual) 0 (0.0-2.0); Blast Cells 0; Metamyelocytes % 0; Myelocytes % 0; Promyelocytes % 0; Reactive Lymphocytes 0
[2022-02-19 11:01] LABS: INR 1.05 (0.9-1.15)
[2022-02-19 12:24] LABS: Eosinophils % (manual) 3 (0-7); Lymphocytes % (manual) 22 (10.0-50.0); Monocytes % (manual) 7 (0-12)
[2022-02-19] MEDS ORDERED: ACETAMINOPHEN 325 MG TAB PO PRN (12:45)
[2022-02-19] MEDS ORDERED: ONDANSETRON HCL 4 MG/2 ML VIAL IV PRN (12:45)
[2022-02-19 13:22] LABS: Urine Bacteria FEW /hpf (None Seen); Urine Blood TRACE /uL (Negative); Urine Hyaline Cast FEW /lpf (0 - 2); Urine WBC 3 /hpf (0 - 5)
[2022-02-19 13:24] VITALS: BP 134/73
[2022-02-19] MEDS ORDERED: traMADol HCL 50 MG TAB PO PRN (14:00)
[2022-02-19] MEDS: methylPREDNISolone SOD SUCC 125 MG/2 ML VL IV SCH ×2 (14:54→21:56)
[2022-02-19] MEDS: traMADol HCL 50 MG TAB PO PRN (15:00)
[2022-02-19] MEDS: MORPHINE SULFATE INJ 2 MG/ml SYRG IV PRN (20:07)
[2022-02-19] MEDS: traZODone HCL 50 MG TAB PO SCH (21:55)
[2022-02-19] MEDS: ATORVASTATIN 20 MG TAB PO SCH (21:55)
[2022-02-19] MEDS: CARVEDILOL 3.125 MG TAB PO SCH (21:56)
[2022-02-19 22:00] VITALS: BP 150/106
[2022-02-20 05:00] VITALS: BP 103/55
[2022-02-20] MEDS: methylPREDNISolone SOD SUCC 125 MG/2 ML VL IV SCH ×2 (05:32→22:10)
[2022-02-20 08:08] LABS: Basophils # (auto) 0 10 ^3/uL (0-0.2); Eosinophils # (auto) 0 10 ^3/uL (0-0.8); Hemoglobin 9.5 g/dL (12.2-16.2); Monocytes # (auto) 0.1 10 ^3/uL (0-1.3); Nucleated Red Blood Cells % 0.1 %
[2022-02-20 08:10] LABS: Hematocrit 30.2 % (36.0-46.0); Lymphocytes # (auto) 0.5 10 ^3/uL (0.4-5.4); Lymphocytes % (auto) 6.5 % (10.0-50.0); Mean Corpuscular Hemoglobin 26.1 pg (28.0-32.0); Mean Corpuscular Hgb Conc. 31.4 g/dL (32.0-36.0); Monocytes % (auto) 1.4 % (0.0-12.0); Neutrophils # (auto) 6.9 10 ^3/uL (1.6-8.6); Neutrophils % (auto) 92.1 % (37.0-80.0); Red Blood Cells 3.63 10^6/uL (4.0-5.20); Red Cell Distribution Width 18.8 % (11.8-14.3); White Blood Cell 7.4 10^3/uL (4.4-10.8)
[2022-02-20 08:26] LABS: Albumin 3.1 g/dL (3.4-5.0); Calcium 8.1 mg/dL (8.5-10.1); Potassium 4.7 mmol/L (3.5-5.1)
[2022-02-20 08:30] LABS: BUN/Creatinine Ratio 24.6; Bilirubin, Total 0.5 mg/dL (0.2-1.0)
[2022-02-20 09:00] VITALS: BP 119/69
[2022-02-20] MEDS: buPROPion HCL 75 MG TAB PO SCH (09:52)
[2022-02-20] MEDS: CARVEDILOL 3.125 MG TAB PO SCH ×2 (09:53→21:41)
[2022-02-20] MEDS: HYDROcodone-ACET 5/325MG TAB PO PRN ×3 (10:05→18:50)
[2022-02-20] MEDS: ENOXAPARIN SOD 30 MG/0.3 ML SYRINGE SC SCH (10:19)
[2022-02-20] MEDS: NICOTINE 21MG/24 HR TOPICAL PATCH TD SCH (10:20)
[2022-02-20] MEDS ORDERED: ASPirin 81 mg TAB PO ONE (13:00)
[2022-02-20] MEDS ORDERED: cefTRIAXone 1GM/50ML D5W 50 ML IV ONE (13:00)
[2022-02-20] MEDS ORDERED: AZITHROMYCIN 250 MG TAB PO ONE (13:00)
[2022-02-20] MEDS ORDERED: FUROSEMIDE 20 MG/2 ML VIAL IV ONE (13:00)
[2022-02-20 13:16] VITALS: BP 120/54
[2022-02-20 16:44] VITALS: BP 132/69
[2022-02-20] MEDS: IPRATROPIUM BROM 0.5 MG/2.5ML INH SOL NEB SCH (17:47)
[2022-02-20] MEDS: ALBUTEROL SULF 2.5 MG/0.5ML(0.5%) NEB SOLN NEB PRN (17:47)
[2022-02-20] MEDS: traZODone HCL 50 MG TAB PO SCH (21:26)
[2022-02-20] MEDS: ATORVASTATIN 20 MG TAB PO SCH (21:26)
[2022-02-20] MEDS: traMADol HCL 50 MG TAB PO PRN (21:27)
[2022-02-20 22:00] VITALS: BP 133/100
[2022-02-21 05:00] VITALS: BP 127/67
[2022-02-21 05:03] LABS: Basophils # (auto) 0 10 ^3/uL (0-0.2); Eosinophils # (auto) 0 10 ^3/uL (0-0.8); Lymphocytes # (auto) 0.4 10 ^3/uL (0.4-5.4); Monocytes # (auto) 0.5 10 ^3/uL (0-1.3); Neutrophils % (auto) 93.9 % (37.0-80.0); Red Cell Distribution Width 18.5 % (11.8-14.3)
[2022-02-21 05:06] LABS: Hematocrit 29.4 % (36.0-46.0); Hemoglobin 9.4 g/dL (12.2-16.2); Lymphocytes % (auto) 2.9 % (10.0-50.0); Mean Corpuscular Hemoglobin 26.4 pg (28.0-32.0); Mean Corpuscular Volume 82.2 fL (80.0-100.0); Monocytes % (auto) 3.2 % (0.0-12.0); Neutrophils # (auto) 14.5 10 ^3/uL (1.6-8.6); Nucleated Red Blood Cells % 0.1 %; Red Blood Cells 3.58 10^6/uL (4.0-5.20); White Blood Cell 15.5 10^3/uL (4.4-10.8)
[2022-02-21 05:23] LABS: BUN/Creatinine Ratio 30.9; Calcium 8.1 mg/dL (8.5-10.1); Potassium 4.1 mmol/L (3.5-5.1)
[2022-02-21] MEDS: IPRATROPIUM BROM 0.5 MG/2.5ML INH SOL NEB SCH ×4 (06:26→18:05)
[2022-02-21 09:00] VITALS: BP 126/65
[2022-02-21] MEDS: FUROSEMIDE 20 MG/2 ML VIAL IV SCH (09:44)
[2022-02-21] MEDS: cefTRIAXone 1GM/50ML D5W 50 ML IV SCH (09:44)
[2022-02-21] MEDS: buPROPion HCL 75 MG TAB PO SCH (09:45)
[2022-02-21] MEDS: CARVEDILOL 3.125 MG TAB PO SCH ×2 (09:45→21:34)
[2022-02-21] MEDS: methylPREDNISolone SOD SUCC 125 MG/2 ML VL IV SCH (09:45)
[2022-02-21] MEDS: ASPirin 81 mg TAB PO SCH (09:45)
[2022-02-21] MEDS: NICOTINE 21MG/24 HR TOPICAL PATCH TD SCH (09:46)
[2022-02-21] MEDS: AZITHROMYCIN 250 MG TAB PO SCH (09:46)
[2022-02-21] MEDS: ENOXAPARIN SOD 30 MG/0.3 ML SYRINGE SC SCH (09:46)
[2022-02-21] MEDS: HYDROcodone-ACET 5/325MG TAB PO PRN ×2 (09:47→14:57)
[2022-02-21] MEDS: traMADol HCL 50 MG TAB PO PRN (10:45)
[2022-02-21 13:00] VITALS: BP 114/69
[2022-02-21] MEDS: MORPHINE SULFATE INJ 2 MG/ml SYRG IV PRN ×2 (16:30→20:49)
[2022-02-21 16:58] VITALS: BP 130/69
[2022-02-21] MEDS: traZODone HCL 50 MG TAB PO SCH (21:35)
[2022-02-21] MEDS: ATORVASTATIN 20 MG TAB PO SCH (21:35)
[2022-02-21 22:00] VITALS: BP 132/67
[2022-02-22] VITALS (7 sets, daily range): BP systolic 121–144; BP diastolic 56–77
[2022-02-22] MEDS: IPRATROPIUM BROM 0.5 MG/2.5ML INH SOL NEB SCH ×4 (06:20→18:23)
[2022-02-22] MEDS: DOCUSATE SOD 100 MG CAP PO PRN ×2 (07:01→20:34)
[2022-02-22] MEDS: MORPHINE SULFATE INJ 2 MG/ml SYRG IV PRN ×6 (07:02→21:56)
[2022-02-22] MEDS: cefTRIAXone 1GM/50ML D5W 50 ML IV SCH (08:18)
[2022-02-22] MEDS: predniSONE 20 MG TAB PO SCH (09:53)
[2022-02-22] MEDS: ASPirin 81 mg TAB PO SCH (09:53)
[2022-02-22] MEDS: AZITHROMYCIN 250 MG TAB PO SCH (09:53)
[2022-02-22] MEDS: buPROPion HCL 75 MG TAB PO SCH (09:53)
[2022-02-22] MEDS: FUROSEMIDE 20 MG/2 ML VIAL IV SCH (09:53)
[2022-02-22] MEDS: ENOXAPARIN SOD 30 MG/0.3 ML SYRINGE SC SCH (09:54)
[2022-02-22] MEDS: CARVEDILOL 3.125 MG TAB PO SCH ×2 (09:54→22:08)
[2022-02-22] MEDS: NICOTINE 21MG/24 HR TOPICAL PATCH TD SCH (09:55)
[2022-02-22] MEDS: ALBUTEROL SULF 2.5 MG/0.5ML(0.5%) NEB SOLN NEB PRN (18:23)
[2022-02-22] MEDS: traZODone HCL 50 MG TAB PO SCH (22:09)
[2022-02-22] MEDS: ATORVASTATIN 20 MG TAB PO SCH (22:09)
[2022-02-23] MEDS: MORPHINE SULFATE INJ 2 MG/ml SYRG IV PRN ×5 (01:46→22:25)
[2022-02-23] MEDS: hydrALAZINE HCL 20 MG/ML VL IV PRN (01:49)
[2022-02-23 05:00] VITALS: BP 142/81
[2022-02-23] MEDS: IPRATROPIUM BROM 0.5 MG/2.5ML INH SOL NEB SCH ×3 (06:14→18:00)
[2022-02-23] MEDS: cefTRIAXone 1GM/50ML D5W 50 ML IV SCH (08:47)
[2022-02-23] MEDS: ASPirin 81 mg TAB PO SCH (09:06)
[2022-02-23] MEDS: FUROSEMIDE 20 MG/2 ML VIAL IV SCH (09:06)
[2022-02-23] MEDS: predniSONE 20 MG TAB PO SCH (09:06)
[2022-02-23] MEDS: CARVEDILOL 3.125 MG TAB PO SCH ×2 (09:07→22:56)
[2022-02-23] MEDS: ENOXAPARIN SOD 30 MG/0.3 ML SYRINGE SC SCH (09:08)
[2022-02-23] MEDS: AZITHROMYCIN 250 MG TAB PO SCH (09:08)
[2022-02-23] MEDS: NICOTINE 21MG/24 HR TOPICAL PATCH TD SCH (09:09)
[2022-02-23] MEDS: buPROPion HCL 75 MG TAB PO SCH (09:16)
[2022-02-23 09:21] VITALS: BP 177/90
[2022-02-23 12:44] VITALS: BP 137/62
[2022-02-23 16:16] VITALS: BP 116/62
[2022-02-23 20:00] VITALS: BP 151/80
[2022-02-23 22:00] VITALS: BP 151/80
[2022-02-23] MEDS: ATORVASTATIN 20 MG TAB PO SCH (22:56)
[2022-02-23] MEDS: traZODone HCL 50 MG TAB PO SCH (22:56)
[2022-02-24 05:00] VITALS: BP 171/84
[2022-02-24] MEDS: hydrALAZINE HCL 20 MG/ML VL IV PRN (05:33)
[2022-02-24] MEDS: MORPHINE SULFATE INJ 2 MG/ml SYRG IV PRN ×2 (05:36→10:36)
[2022-02-24] MEDS ORDERED: FUROSEMIDE 20 MG TAB PO SCH (06:00)
[2022-02-24] MEDS: IPRATROPIUM BROM 0.5 MG/2.5ML INH SOL NEB SCH ×2 (06:00→12:00)
[2022-02-24 06:30] VITALS: BP 138/78
[2022-02-24] MEDS: cefTRIAXone 1GM/50ML D5W 50 ML IV SCH (08:39)
[2022-02-24 09:00] VITALS: BP 147/90
[2022-02-24] MEDS ORDERED: SPIRONOLACTONE 25 MG TAB PO SCH (10:00)
[2022-02-24] MEDS: ASPirin 81 mg TAB PO SCH (10:19)
[2022-02-24] MEDS: predniSONE 20 MG TAB PO SCH (10:20)
[2022-02-24] MEDS: ENOXAPARIN SOD 30 MG/0.3 ML SYRINGE SC SCH (10:35)
[2022-02-24] MEDS: buPROPion HCL 75 MG TAB PO SCH (10:35)
[2022-02-24] MEDS: CARVEDILOL 3.125 MG TAB PO SCH (10:35)
[2022-02-24] MEDS: AZITHROMYCIN 250 MG TAB PO SCH (10:35)
[2022-02-24] MEDS: NICOTINE 21MG/24 HR TOPICAL PATCH TD SCH (10:36)
[2022-02-24 13:00] VITALS: BP 142/74
[2022-02-24] MEDS ORDERED: SPIR25TA PO (13:03)
[2022-02-24] MEDS ORDERED: FUR20T PO (13:03)
[2022-02-24] MEDS ORDERED: PRED20TA2 PO (13:03)
[2022-02-24] MEDS ORDERED: AZIT250T9 PO (13:03)
== END 2022-02-24 17:25 | disposition home or self-care (01) | DRG 871 ==
LOC: EDBD 08:01 → ER 08:01 → TELE 12:36 → TELE-WESTW 21:10
PROVIDERS: ADMIT Internal Medicine; ATTEND Internal Medicine
PROC: 5A09357 Assistance with Respiratory Ventilation, Less than 24 Consecutive Hours, Continuous Positive Airway Pressure (ICD-10-PCS; principal; 2022-02-19)
DX: A41.9 Sepsis, unspecified organism (principal); I50.43 Acute on chronic combined systolic (congestive) and diastolic (congestive) heart failure; J96.21 Acute and chronic respiratory failure with hypoxia; N17.0 Acute kidney failure with tubular necrosis; I13.0 Hypertensive heart and chronic kidney disease with heart failure and stage 1 through stage 4 chronic kidney disease, or unspecified chronic kidney disease; J44.1 Chronic obstructive pulmonary disease with (acute) exacerbation; I31.3 Pericardial effusion (noninflammatory); N39.0 Urinary tract infection, site not specified; I47.1 Supraventricular tachycardia; J91.8 Pleural effusion in other conditions classified elsewhere; E11.65 Type 2 diabetes mellitus with hyperglycemia; D64.9 Anemia, unspecified; E11.22 Type 2 diabetes mellitus with diabetic chronic kidney disease; Z20.822 Contact with and (suspected) exposure to COVID-19; F17.210 Nicotine dependence, cigarettes, uncomplicated; I25.10 Atherosclerotic heart disease of native coronary artery without angina pectoris; I48.91 Unspecified atrial fibrillation; R79.89 Other specified abnormal findings of blood chemistry; E78.5 Hyperlipidemia, unspecified; N18.9 Chronic kidney disease, unspecified; Z79.82 Long term (current) use of aspirin; Z79.899 Other long term (current) drug therapy; Z80.3 Family history of malignant neoplasm of breast; Z91.19 Patient's noncompliance with other medical treatment and regimen; Z99.81 Dependence on supplemental oxygen; Z95.5 Presence of coronary angioplasty implant and graft; Z95.810 Presence of automatic (implantable) cardiac defibrillator
CPT/HCPCS: 36415; 36600; 71045; 78582; 80048; 80053; 81001; 82805; 83735; 83880; 84484; 85007; 85025; 85027; 85379; 85610; 85730; 93005; 93306; 93970; 94640; 94644; 94660; 96361; 96374; 96375; 99291; G0378; J0696

== ENCOUNTER 2022-03-07 09:14 | Inpatient (IN) | payer OTHER, MEDICAID ==
[~2022-03-07] VITALS: Ht 157.5 cm; Wt 66.0 kg
[~2022-03-07 09:14] MED LIST changes: +AZIT250T9 PO; +FUR20T PO; -FURO20TA3 PO; +PRED20TA2 PO; +SPIR25TA PO
[2022-03-07 10:30] LABS: Basophils # (auto) 0.1 10 ^3/uL (0-0.2); Basophils % (auto) 0.8 % (0.0-2.0); Eosinophils # (auto) 0.2 10 ^3/uL (0-0.8); Lymphocytes # (auto) 1.8 10 ^3/uL (0.4-5.4); Neutrophils # (auto) 4.4 10 ^3/uL (1.6-8.6); Nucleated Red Blood Cells % 0.2 %
[2022-03-07 10:32] LABS: Eosinophils % (auto) 2.5 % (0.0-7.0); Lymphocytes % (auto) 25.1 % (10.0-50.0); Monocytes # (auto) 0.6 10 ^3/uL (0-1.3); Monocytes % (auto) 8.8 % (0.0-12.0); Neutrophils % (auto) 62.8 % (37.0-80.0); Red Blood Cells 4.88 10^6/uL (4.0-5.20)
[2022-03-07 10:33] LABS: Hematocrit 40.3 % (36.0-46.0); Mean Corpuscular Hemoglobin 26.6 pg (28.0-32.0); Mean Corpuscular Hgb Conc. 32.2 g/dL (32.0-36.0); Mean Corpuscular Volume 82.4 fL (80.0-100.0); Red Cell Distribution Width 18.8 % (11.8-14.3)
[2022-03-07 10:45] LABS: Albumin 3.5 g/dL (3.4-5.0); Calcium 8.9 mg/dL (8.5-10.1); Potassium 4.4 mmol/L (3.5-5.1)
[2022-03-07 10:49] LABS: BUN/Creatinine Ratio 21.7; Bilirubin, Total 0.4 mg/dL (0.2-1.0); Total Protein 6.4 g/dL (6.4-8.2)
[2022-03-07] MEDS ORDERED: ONDANSETRON HCL 4 MG/2 ML VIAL IV ONE (11:15)
[2022-03-07] MEDS ORDERED: MORPHINE SULFATE 4 MG/ML SYR/VIAL IV ONE (11:15)
[2022-03-07] MEDS ORDERED: ACETAMINOPHEN 325 MG TAB PO PRN (14:15)
[2022-03-07] MEDS ORDERED: MORPHINE SULFATE INJ 2 MG/ml SYRG IV PRN (14:15)
[2022-03-07] MEDS ORDERED: NITROGLYCERIN 0.4 MG SL TAB SL PRN (14:15)
[2022-03-07] MEDS ORDERED: ONDANSETRON HCL 4 MG/2 ML VIAL IV PRN (14:15)
[2022-03-07] MEDS ORDERED: DOCUSATE SOD 100 MG CAP PO PRN (14:15)
[2022-03-07] MEDS: SODIUM CHLORIDE 0.9% 1,000 ML IV SCH (14:39)
[2022-03-07] MEDS: MORPHINE SULFATE INJ 2 MG/ml SYRG IV PRN (20:29)
[2022-03-07 20:30] VITALS: BP 116/83
[2022-03-07] MEDS: HEPARIN SODIUM (PORCINE) 5000 UNITS/ML 1ML VIAL SC SCH (23:22)
[2022-03-08] MEDS: MORPHINE SULFATE INJ 2 MG/ml SYRG IV PRN ×5 (00:48→20:24)
[2022-03-08] MEDS: HYDROcodone-ACET 5/325MG TAB PO PRN (03:28)
[2022-03-08 05:00] VITALS: BP 101/61
[2022-03-08] MEDS: SODIUM CHLORIDE 0.9% 1,000 ML IV SCH ×2 (06:31→16:33)
[2022-03-08 07:40] LABS: Basophils # (auto) 0.1 10 ^3/uL (0-0.2); Hematocrit 34.6 % (36.0-46.0); Hemoglobin 10.9 g/dL (12.2-16.2); Mean Corpuscular Hgb Conc. 31.6 g/dL (32.0-36.0); Neutrophils # (auto) 3.9 10 ^3/uL (1.6-8.6); Red Blood Cells 4.21 10^6/uL (4.0-5.20); Red Cell Distribution Width 19.3 % (11.8-14.3)
[2022-03-08 07:42] LABS: Eosinophils # (auto) 0.1 10 ^3/uL (0-0.8); Eosinophils % (auto) 2.3 % (0.0-7.0); Lymphocytes # (auto) 1.5 10 ^3/uL (0.4-5.4); Lymphocytes % (auto) 24.5 % (10.0-50.0); Mean Corpuscular Hemoglobin 25.9 pg (28.0-32.0); Mean Corpuscular Volume 82.2 fL (80.0-100.0); Monocytes # (auto) 0.7 10 ^3/uL (0-1.3); Monocytes % (auto) 10.5 % (0.0-12.0); Neutrophils % (auto) 61.7 % (37.0-80.0); Nucleated Red Blood Cells % 0.1 %; White Blood Cell 6.3 10^3/uL (4.4-10.8)
[2022-03-08 07:58] LABS: Calcium 8.3 mg/dL (8.5-10.1); Potassium 4.1 mmol/L (3.5-5.1)
[2022-03-08 08:04] LABS: Albumin 3.2 g/dL (3.4-5.0); Bilirubin, Total 0.5 mg/dL (0.2-1.0); Total Protein 5.7 g/dL (6.4-8.2)
[2022-03-08 08:44] VITALS: BP 132/65
[2022-03-08] MEDS: HEPARIN SODIUM (PORCINE) 5000 UNITS/ML 1ML VIAL SC SCH ×2 (11:04→22:25)
[2022-03-08 13:40] VITALS: BP 112/59
[2022-03-08] MEDS ORDERED: FUROSEMIDE 40 MG/4 ML VIAL IV SCH (18:00)
[2022-03-08] MEDS: FUROSEMIDE 40 MG/4 ML VIAL IV SCH (18:00)
[2022-03-08 22:00] VITALS: BP 125/58
[2022-03-08] MEDS: ACETYLCYSTEINE ORAL for CIN 20%(200MG/ML) 4ML PO SCH (22:10)
[2022-03-09] MEDS: MORPHINE SULFATE INJ 2 MG/ml SYRG IV PRN ×5 (00:29→14:54)
[2022-03-09 05:23] VITALS: BP 126/60
[2022-03-09] MEDS: SODIUM CHLORIDE 0.9% 1,000 ML IV SCH ×2 (05:35→18:55)
[2022-03-09] MEDS: FUROSEMIDE 40 MG/4 ML VIAL IV SCH ×2 (06:16→18:00)
[2022-03-09 06:44] LABS: Basophils # (auto) 0.1 10 ^3/uL (0-0.2); Basophils % (auto) 1.1 % (0.0-2.0); Eosinophils # (auto) 0.1 10 ^3/uL (0-0.8); Lymphocytes # (auto) 1.4 10 ^3/uL (0.4-5.4); Monocytes # (auto) 0.6 10 ^3/uL (0-1.3); Monocytes % (auto) 10.6 % (0.0-12.0); Nucleated Red Blood Cells % 0.1 %
[2022-03-09 06:45] LABS: Albumin 3.4 g/dL (3.4-5.0); Calcium 8.1 mg/dL (8.5-10.1); Potassium 3.8 mmol/L (3.5-5.1)
[2022-03-09 06:49] LABS: BUN/Creatinine Ratio 22.6; Bilirubin, Total 0.4 mg/dL (0.2-1.0); Eosinophils % (auto) 2.3 % (0.0-7.0); Hematocrit 34.2 % (36.0-46.0); Lymphocytes % (auto) 24.5 % (10.0-50.0); Mean Corpuscular Hemoglobin 26.6 pg (28.0-32.0); Mean Corpuscular Hgb Conc. 32.3 g/dL (32.0-36.0); Mean Corpuscular Volume 82.3 fL (80.0-100.0); Neutrophils # (auto) 3.5 10 ^3/uL (1.6-8.6); Neutrophils % (auto) 61.5 % (37.0-80.0); Red Blood Cells 4.15 10^6/uL (4.0-5.20); Red Cell Distribution Width 19.8 % (11.8-14.3); Total Protein 5.9 g/dL (6.4-8.2); White Blood Cell 5.6 10^3/uL (4.4-10.8)
[2022-03-09] MEDS ORDERED: IOHEXOL 300 MG/ML 100ML BOTTLE IJ ONE (09:20)
[2022-03-09 09:27] VITALS: BP 129/58
[2022-03-09] MEDS: HEPARIN SODIUM (PORCINE) 5000 UNITS/ML 1ML VIAL SC SCH ×2 (10:00→22:45)
[2022-03-09] MEDS: ACETYLCYSTEINE ORAL for CIN 20%(200MG/ML) 4ML PO SCH ×2 (10:00→22:30)
[2022-03-09 10:29] LABS: Urine Bacteria NONE SEEN /hpf (None Seen); Urine Blood Negative /uL (Negative); Urine Specific Gravity 1.005 (1.001-1.035); Urine WBC <1 /hpf (0 - 5)
[2022-03-09 10:39] LABS: Sodium Urine 102 mmol/L (40-220)
[2022-03-09 10:40] LABS: Alcohol, Urine < 3.0 mg/dL (0-10); Amphetamine Screen, Urine NEGATIVE (NEGATIVE); Barbiturate Scree,Urine NEGATIVE (NEGATIVE); Benzodiazephine Screen, Urine NEGATIVE (NEGATIVE); Cannabinoid Screen, Urine NEGATIVE (NEGATIVE); Cocaine Screen, Urine NEGATIVE (NEGATIVE); Opiate Scree,Urine NEGATIVE (NEGATIVE); Phencyclidine Screen, Urine NEGATIVE (NEGATIVE)
[2022-03-09] MEDS ORDERED: HYDROmorphone HCL 2 MG/ML VL/or syr IV ONE (12:30)
[2022-03-09 13:06] VITALS: BP 118/70
[2022-03-09 13:34] LABS: Creatinine, Urine 0 mg/dL (30.0-125.0)
[2022-03-09 22:00] VITALS: BP 139/67
[2022-03-09] MEDS ORDERED: HEPARIN SODIUM (PORCINE) 5000 UNITS/ML 1ML VIAL ONE ×3 (22:21)
[2022-03-10] MEDS: MORPHINE SULFATE INJ 2 MG/ml SYRG IV PRN ×3 (00:53→21:05)
[2022-03-10] MEDS: HYDROcodone-ACET 5/325MG TAB PO PRN ×2 (03:15→22:59)
[2022-03-10 05:00] VITALS: BP 127/58
[2022-03-10 06:43] LABS: BUN/Creatinine Ratio 14.9; Calcium 8.4 mg/dL (8.5-10.1)
[2022-03-10 07:03] LABS: Potassium 2.9 mmol/L (3.5-5.1)
[2022-03-10] MEDS: FUROSEMIDE 40 MG/4 ML VIAL IV SCH (07:12)
[2022-03-10] MEDS ORDERED: POTASSIUM CHL 20 Meq TABLET PO ONE ×2 (07:45→10:00)
[2022-03-10 08:30] VITALS: BP 151/95
[2022-03-10] MEDS: POTASSIUM CHL 20MEQ/100ML 100 ML IV SCH ×3 (10:00→14:00)
[2022-03-10] MEDS: HEPARIN SODIUM (PORCINE) 5000 UNITS/ML 1ML VIAL SC SCH ×2 (10:00→23:43)
[2022-03-10] MEDS: ACETYLCYSTEINE ORAL for CIN 20%(200MG/ML) 4ML PO SCH (10:00)
[2022-03-10 12:30] VITALS: BP 121/69
[2022-03-10] MEDS ORDERED: PANTOPRAZOLE 40 MG/10 ML VIAL INJ IV ONE (12:45)
[2022-03-10] MEDS ORDERED: cefTRIAXone 1GM/50ML D5W 50 ML IV ONE (12:45)
[2022-03-10 13:03] LABS: Hepatitis B Surface Antibody Positive (Negative)
[2022-03-10 13:36] LABS: Hepatitis A Total Antibody Negative (Negative)
[2022-03-10] MEDS: metroNIDAZOLE 500MG/100ML 100 ML IV SCH ×2 (14:00→23:44)
[2022-03-10] MEDS: D5W/SOD CHL 0.45%/KCL 20MEQ 1,000 ML IV SCH (14:15)
[2022-03-10 17:00] VITALS: BP 125/62
[2022-03-10 19:10] LABS: INR 1.09 (0.9-1.15); Partial Thromboplastin Time 22.7 sec (24.6-33.4)
[2022-03-10] MEDS ORDERED: POTASSIUM CHL 20MEQ/100ML 300 ML IV ONE (19:42)
[2022-03-10 20:00] VITALS: BP 136/68
[2022-03-10 20:24] LABS: Hepatitis C Antibody Positive (Negative)
[2022-03-10 22:00] VITALS: BP 123/63
[2022-03-11] MEDS: D5W/SOD CHL 0.45%/KCL 20MEQ 1,000 ML IV SCH (00:15)
[2022-03-11 05:00] VITALS: BP 136/66
[2022-03-11] MEDS: metroNIDAZOLE 500MG/100ML 100 ML IV SCH (06:00)
[2022-03-11 06:26] LABS: INR 1.09 (0.9-1.15); Partial Thromboplastin Time 29.9 sec (24.6-33.4)
[2022-03-11] MEDS: MORPHINE SULFATE INJ 2 MG/ml SYRG IV PRN (06:27)
[2022-03-11 06:28] LABS: White Blood Cell 4.6 10^3/uL (4.4-10.8)
[2022-03-11 06:29] LABS: Hematocrit 32.7 % (36.0-46.0); Hemoglobin 10.9 g/dL (12.2-16.2); Mean Corpuscular Hgb Conc. 33.3 g/dL (32.0-36.0); Mean Corpuscular Volume 81.3 fL (80.0-100.0); Red Blood Cells 4.03 10^6/uL (4.0-5.20); Red Cell Distribution Width 19.8 % (11.8-14.3)
[2022-03-11 06:32] LABS: Basophils % (manual) 0 (0.0-2.0); Eosinophils % (manual) 0 (0-7); Promyelocytes % 0; Reactive Lymphocytes 0
[2022-03-11 06:40] LABS: Potassium 3.2 mmol/L (3.5-5.1)
[2022-03-11 06:49] LABS: Albumin 3.5 g/dL (3.4-5.0); BUN/Creatinine Ratio 8.9; Bilirubin, Total 0.8 mg/dL (0.2-1.0); Total Protein 6.2 g/dL (6.4-8.2)
[2022-03-11 06:57] VITALS: BP 135/75
[2022-03-11 08:00] LABS: Band Neutrophils % (manual) 5; Blast Cells 4; Lymphocytes % (manual) 26 (10.0-50.0); Metamyelocytes % 3; Monocytes % (manual) 8 (0-12); Myelocytes % 2
[2022-03-11] MEDS ORDERED: cefTRIAXone 1GM/50ML D5W 50 ML IV SCH (09:00)
[2022-03-11] MEDS ORDERED: FUROSEMIDE 40 MG TAB PO SCH (10:00)
[2022-03-11] MEDS ORDERED: POTASSIUM CHL 20 Meq TABLET PO SCH (10:00)
[2022-03-11] MEDS ORDERED: PANTOPRAZOLE 40 MG/10 ML VIAL INJ IV SCH (10:00)
[2022-03-20] MEDS ORDERED: POTA10TA32 PO (14:14)
[2022-03-20] MEDS ORDERED: TIOT1AER IN (14:14)
[2022-03-20] MEDS ORDERED: LOSA-69 PO (14:16)
[2022-03-20] MEDS ORDERED: FURO20TA3 PO (14:16)
[2022-03-20] MEDS ORDERED: BUPR-60 PO (14:16)
[2022-03-20] MEDS ORDERED: CARV12.544 PO (14:16)
== END 2022-03-11 10:22 | disposition left against medical advice (07) | DRG 444 ==
LOC: ER 09:14 → EDBD 09:14 → TELE 14:18 → TELE-WESTW 20:48
PROVIDERS: ADMIT Family Medicine; ATTEND Internal Medicine
DX: K80.00 Calculus of gallbladder with acute cholecystitis without obstruction (principal); N17.0 Acute kidney failure with tubular necrosis; J96.10 Chronic respiratory failure, unspecified whether with hypoxia or hypercapnia; I50.42 Chronic combined systolic (congestive) and diastolic (congestive) heart failure; B19.9 Unspecified viral hepatitis without hepatic coma; I13.0 Hypertensive heart and chronic kidney disease with heart failure and stage 1 through stage 4 chronic kidney disease, or unspecified chronic kidney disease; K57.90 Diverticulosis of intestine, part unspecified, without perforation or abscess without bleeding; N18.30 Chronic kidney disease, stage 3 unspecified; E87.6 Hypokalemia; J44.9 Chronic obstructive pulmonary disease, unspecified; I48.91 Unspecified atrial fibrillation; D69.6 Thrombocytopenia, unspecified; Z53.21 Procedure and treatment not carried out due to patient leaving prior to being seen by health care provider; R16.0 Hepatomegaly, not elsewhere classified; D63.1 Anemia in chronic kidney disease; F19.10 Other psychoactive substance abuse, uncomplicated; E78.5 Hyperlipidemia, unspecified; F17.210 Nicotine dependence, cigarettes, uncomplicated; I25.10 Atherosclerotic heart disease of native coronary artery without angina pectoris; Z20.822 Contact with and (suspected) exposure to COVID-19; Z80.3 Family history of malignant neoplasm of breast; Z85.3 Personal history of malignant neoplasm of breast; Z91.19 Patient's noncompliance with other medical treatment and regimen; Z95.810 Presence of automatic (implantable) cardiac defibrillator; Z88.2 Allergy status to sulfonamides; Z88.8 Allergy status to other drugs, medicaments and biological substances
CPT/HCPCS: 36415; 70450; 71045; 74176; 74177; 76705; 76856; 78226; 80048; 80053; 80307; 81001; 82105; 82570; 83605; 83690; 84300; 84484; 85007; 85025; 85027; 85610; 85730; 86704; 86706; 86708; 86803; 86850; 86900; 86901; 87081; 87340; 93005; 96374; 96375; C9113; G0378; J0696; J2405; J3480; J3490

== ENCOUNTER 2022-04-01 14:10 | Inpatient (IN) | payer OTHER, MEDICAID ==
[~2022-04-01] VITALS: Ht 144.8 cm; Wt 66.9 kg
[~2022-04-01 14:10] MED LIST changes: -AZIT250T9 PO; +BUPR-60 PO; -BUPR75TA10 PO; +CARV12.544 PO; -CARV6.25 PO; -FUR20T PO; +FURO20TA3 PO; -HYDR-531 PO; +LOSA-69 PO; -LOSA25TA38 PO; -NIC21P TOP; +POTA10TA32 PO; -PRED20TA2 PO; -SPIR25TA PO; +TIOT1AER IN; -TRAM50TA2 PO; -TRAZ1TAB12 PO; -[UNRECOGNIZED DRUG - CODE]
[2022-04-01] MEDS ORDERED: IPRATROPIUM BROM 0.5 MG/2.5ML INH SOL NEB ONE (14:30)
[2022-04-01] MEDS ORDERED: ALBUTEROL SULF 2.5 MG/0.5ML(0.5%) NEB SOLN NEB ONE ×2 (14:30→16:15)
[2022-04-01] MEDS ORDERED: methylPREDNISolone SOD SUCC 125 MG/2 ML VL IV ONE (14:30)
[2022-04-01] MEDS ORDERED: IOHEXOL 350 MG/ML 100ML IJ ONE (14:43)
[2022-04-01 15:27] LABS: Albumin 2.6 g/dL (3.4-5.0); Calcium 8.5 mg/dL (8.5-10.1); Potassium 4.2 mmol/L (3.5-5.1)
[2022-04-01 15:30] LABS: BUN/Creatinine Ratio 14.4; Bilirubin, Total 0.5 mg/dL (0.2-1.0); Total Protein 5.8 g/dL (6.4-8.2)
[2022-04-01] MEDS ORDERED: ACETAMINOPHEN 500 MG TAB PO ONE (16:15)
[2022-04-01] MEDS ORDERED: SODIUM CHLORIDE 0.9% 500 ML IV ONE (16:15)
[2022-04-01] MEDS ORDERED: ACETYLCYSTEINE ORAL for CIN 20%(200MG/ML) 4ML PO ONE (16:15)
[2022-04-01] MEDS ORDERED: FUROSEMIDE 40 MG/4 ML VIAL IV ONE (16:15)
[2022-04-01] MEDS ORDERED: ALBUTEROL SULF 2.5 MG/0.5ML(0.5%) NEB SOLN ONE (16:35)
[2022-04-01] MEDS ORDERED: ONDANSETRON HCL 4 MG/2 ML VIAL IV PRN (17:30)
[2022-04-01] MEDS ORDERED: ACETAMINOPHEN 325 MG TAB PO PRN (17:30)
[2022-04-01] MEDS ORDERED: PANTOPRAZOLE 40 MG/10 ML VIAL INJ IV ONE (17:30)
[2022-04-01 17:48] VITALS: BP 146/47
[2022-04-01] MEDS: IPRATROPIUM BROM 0.5 MG/2.5ML INH SOL NEB SCH (18:00)
[2022-04-01] MEDS ORDERED: IPRATROPIUM BROM 0.5 MG/2.5ML INH SOL ONE (18:10)
[2022-04-01] MEDS: ALBUTEROL SULF 2.5 MG/0.5ML(0.5%) NEB SOLN NEB SCH (18:11)
[2022-04-01] MEDS: methylPREDNISolone SOD SUCC 125 MG/2 ML VL IV SCH ×2 (18:41→23:44)
[2022-04-01 21:09] LABS: Urine Bacteria NONE SEEN /hpf (None Seen); Urine Blood Negative /uL (Negative); Urine Mucus FEW (None Seen); Urine Specific Gravity 1.012 (1.001-1.035); Urine WBC <1 /hpf (0 - 5)
[2022-04-01] MEDS: MORPHINE SULFATE INJ 2 MG/ml SYRG IV PRN (21:28)
[2022-04-01] MEDS: SODIUM CHLOR 0.9% PF (SALINE LOCK) 10ML VIAL/SYR IV SCH (22:20)
[2022-04-01 23:17] VITALS: BP 166/63
[2022-04-01] MEDS: HYDROcodone-ACET 5/325MG TAB PO PRN (23:44)
[2022-04-01] MEDS: CARVEDILOL 12.5 MG TAB PO SCH (23:45)
[2022-04-02 00:34] VITALS: BP 166/63
[2022-04-02] MEDS: ALBUTEROL SULF 2.5 MG/0.5ML(0.5%) NEB SOLN NEB SCH ×4 (00:55→18:21)
[2022-04-02] MEDS: IPRATROPIUM BROM 0.5 MG/2.5ML INH SOL NEB SCH ×4 (00:55→18:21)
[2022-04-02] MEDS: MORPHINE SULFATE INJ 2 MG/ml SYRG IV PRN ×4 (03:43→21:48)
[2022-04-02 04:44] LABS: Basophils # (auto) 0 10 ^3/uL (0-0.2); Eosinophils # (auto) 0 10 ^3/uL (0-0.8); Lymphocytes # (auto) 0.6 10 ^3/uL (0.4-5.4); Mean Corpuscular Volume 82.2 fL (80.0-100.0); Monocytes # (auto) 0.1 10 ^3/uL (0-1.3); Neutrophils # (auto) 3.4 10 ^3/uL (1.6-8.6)
[2022-04-02 04:47] LABS: Basophils % (auto) 0.4 % (0.0-2.0); Hematocrit 28.5 % (36.0-46.0); Hemoglobin 9.2 g/dL (12.2-16.2); Mean Corpuscular Hemoglobin 26.5 pg (28.0-32.0); Mean Corpuscular Hgb Conc. 32.2 g/dL (32.0-36.0); Neutrophils % (auto) 82.6 % (37.0-80.0); Nucleated Red Blood Cells % 0.2 %; Red Blood Cells 3.46 10^6/uL (4.0-5.20); White Blood Cell 4.1 10^3/uL (4.4-10.8)
[2022-04-02 04:52] LABS: Red Cell Distribution Width 20.4 % (11.8-14.3)
[2022-04-02 05:00] VITALS: BP 140/90
[2022-04-02 05:01] LABS: Albumin 2.7 g/dL (3.4-5.0); Calcium 8.2 mg/dL (8.5-10.1); Potassium 4.3 mmol/L (3.5-5.1)
[2022-04-02 05:05] LABS: Bilirubin, Total 0.6 mg/dL (0.2-1.0); Total Protein 6.1 g/dL (6.4-8.2)
[2022-04-02] MEDS: HYDROcodone-ACET 5/325MG TAB PO PRN (05:27)
[2022-04-02] MEDS: methylPREDNISolone SOD SUCC 125 MG/2 ML VL IV SCH ×2 (05:28→21:48)
[2022-04-02] MEDS: SODIUM CHLOR 0.9% PF (SALINE LOCK) 10ML VIAL/SYR IV SCH ×3 (05:35→21:40)
[2022-04-02 08:52] VITALS: BP 194/99
[2022-04-02] MEDS ORDERED: PANTOPRAZOLE 40 MG/10 ML VIAL INJ IV SCH (10:00)
[2022-04-02] MEDS: BUPROPION HCL 150 MG PO SCH (10:00)
[2022-04-02] MEDS: ENOXAPARIN SOD 40 MG/0.4 ML SYRINGE SC SCH (10:08)
[2022-04-02] MEDS: ASPirin-EC 81 mg tab PO SCH (10:09)
[2022-04-02] MEDS: LOSARTAN POTASSIUM 50 MG TAB PO SCH (10:09)
[2022-04-02] MEDS: ATORVASTATIN 20 MG TAB PO SCH (10:10)
[2022-04-02] MEDS: CITALOPRAM HYDROBR 20 MG TAB PO SCH (10:10)
[2022-04-02] MEDS: CARVEDILOL 12.5 MG TAB PO SCH ×2 (10:11→21:49)
[2022-04-02] MEDS: FUROSEMIDE 20 MG TAB PO SCH (10:11)
[2022-04-02] MEDS: POTASSIUM CHL 10 Meq TABLET PO SCH (10:11)
[2022-04-02] MEDS ORDERED: MAGN400T26 PO (11:55)
[2022-04-02] MEDS ORDERED: OMEP-260 PO (11:55)
[2022-04-02 13:00] VITALS: BP 150/68
[2022-04-02 17:00] VITALS: BP 136/70
[2022-04-02 22:23] VITALS: BP 118/63
[2022-04-03] MEDS: HYDROcodone-ACET 5/325MG TAB PO PRN ×2 (00:10→05:59)
[2022-04-03] MEDS: MORPHINE SULFATE INJ 2 MG/ml SYRG IV PRN ×2 (02:33→22:29)
[2022-04-03] MEDS: SODIUM CHLOR 0.9% PF (SALINE LOCK) 10ML VIAL/SYR IV SCH ×3 (05:19→21:51)
[2022-04-03 05:59] VITALS: BP 146/78
[2022-04-03] MEDS: IPRATROPIUM BROM 0.5 MG/2.5ML INH SOL NEB SCH ×5 (06:15→19:37)
[2022-04-03] MEDS: ALBUTEROL SULF 2.5 MG/0.5ML(0.5%) NEB SOLN NEB SCH ×5 (06:15→19:38)
[2022-04-03] MEDS: BUPROPION HCL 150 MG PO SCH (10:00)
[2022-04-03 10:14] VITALS: BP 131/69
[2022-04-03] MEDS: ASPirin-EC 81 mg tab PO SCH (10:17)
[2022-04-03] MEDS: ATORVASTATIN 20 MG TAB PO SCH (10:17)
[2022-04-03] MEDS: LOSARTAN POTASSIUM 50 MG TAB PO SCH (10:19)
[2022-04-03] MEDS: POTASSIUM CHL 10 Meq TABLET PO SCH (10:19)
[2022-04-03] MEDS: CARVEDILOL 12.5 MG TAB PO SCH ×2 (10:20→22:28)
[2022-04-03] MEDS: PANTOPRAZOLE 40 MG TAB PO SCH (10:20)
[2022-04-03] MEDS: CITALOPRAM HYDROBR 20 MG TAB PO SCH (10:21)
[2022-04-03] MEDS: ENOXAPARIN SOD 40 MG/0.4 ML SYRINGE SC SCH (10:22)
[2022-04-03] MEDS: methylPREDNISolone SOD SUCC 125 MG/2 ML VL IV SCH ×2 (11:30→22:28)
[2022-04-03] MEDS: FUROSEMIDE 20 MG TAB PO SCH (11:45)
[2022-04-03 12:07] VITALS: BP 162/59
[2022-04-03 16:30] VITALS: BP 132/58
[2022-04-03 22:00] VITALS: BP 124/52
[2022-04-04 05:00] VITALS: BP 156/61
[2022-04-04] MEDS: SODIUM CHLOR 0.9% PF (SALINE LOCK) 10ML VIAL/SYR IV SCH ×3 (05:22→22:27)
[2022-04-04] MEDS: IPRATROPIUM BROM 0.5 MG/2.5ML INH SOL NEB SCH ×4 (05:54→18:19)
[2022-04-04] MEDS: ALBUTEROL SULF 2.5 MG/0.5ML(0.5%) NEB SOLN NEB SCH ×4 (05:54→18:19)
[2022-04-04 06:11] LABS: Basophils # (auto) 0 10 ^3/uL (0-0.2); Basophils % (auto) 0.2 % (0.0-2.0); Eosinophils # (auto) 0 10 ^3/uL (0-0.8); Hematocrit 26.1 % (36.0-46.0); Hemoglobin 8.5 g/dL (12.2-16.2); Lymphocytes # (auto) 0.5 10 ^3/uL (0.4-5.4); Lymphocytes % (auto) 7.4 % (10.0-50.0); Mean Corpuscular Hemoglobin 26.7 pg (28.0-32.0); Mean Corpuscular Hgb Conc. 32.5 g/dL (32.0-36.0); Mean Corpuscular Volume 82.1 fL (80.0-100.0); Monocytes # (auto) 0.1 10 ^3/uL (0-1.3); Monocytes % (auto) 1.9 % (0.0-12.0); Neutrophils # (auto) 6.4 10 ^3/uL (1.6-8.6); Neutrophils % (auto) 90.5 % (37.0-80.0); Red Blood Cells 3.17 10^6/uL (4.0-5.20); White Blood Cell 7.1 10^3/uL (4.4-10.8)
[2022-04-04 06:12] LABS: Red Cell Distribution Width 20.8 % (11.8-14.3)
[2022-04-04 06:22] LABS: Albumin 2.7 g/dL (3.4-5.0); Calcium 8.5 mg/dL (8.5-10.1); Potassium 4.1 mmol/L (3.5-5.1)
[2022-04-04 06:25] LABS: BUN/Creatinine Ratio 30.3; Bilirubin, Total 0.4 mg/dL (0.2-1.0); Total Protein 6.3 g/dL (6.4-8.2)
[2022-04-04] MEDS: BUPROPION HCL 150 MG PO SCH (10:00)
[2022-04-04] MEDS: ATORVASTATIN 20 MG TAB PO SCH (10:57)
[2022-04-04] MEDS: FUROSEMIDE 20 MG TAB PO SCH (10:58)
[2022-04-04] MEDS: ASPirin-EC 81 mg tab PO SCH (10:58)
[2022-04-04] MEDS: LOSARTAN POTASSIUM 50 MG TAB PO SCH (10:59)
[2022-04-04] MEDS: POTASSIUM CHL 10 Meq TABLET PO SCH (10:59)
[2022-04-04] MEDS: CITALOPRAM HYDROBR 20 MG TAB PO SCH (11:00)
[2022-04-04] MEDS: PANTOPRAZOLE 40 MG TAB PO SCH (11:01)
[2022-04-04] MEDS: CARVEDILOL 12.5 MG TAB PO SCH ×2 (11:02→22:28)
[2022-04-04] MEDS: ENOXAPARIN SOD 40 MG/0.4 ML SYRINGE SC SCH (11:04)
[2022-04-04] MEDS: methylPREDNISolone SOD SUCC 125 MG/2 ML VL IV SCH ×2 (11:08→22:27)
[2022-04-04 13:00] VITALS: BP 150/63
[2022-04-04] MEDS: MORPHINE SULFATE INJ 2 MG/ml SYRG IV PRN ×2 (14:50→22:44)
[2022-04-04 17:00] VITALS: BP 118/64
[2022-04-04 20:08] VITALS: BP 118/64
[2022-04-04 21:48] VITALS: BP 149/62
[2022-04-05] MEDS: IPRATROPIUM BROM 0.5 MG/2.5ML INH SOL NEB SCH ×3 (01:20→11:17)
[2022-04-05] MEDS: ALBUTEROL SULF 2.5 MG/0.5ML(0.5%) NEB SOLN NEB SCH ×3 (01:20→11:17)
[2022-04-05] MEDS: HYDROcodone-ACET 5/325MG TAB PO PRN ×2 (01:46→20:18)
[2022-04-05] MEDS: MORPHINE SULFATE INJ 2 MG/ml SYRG IV PRN ×2 (04:30→09:26)
[2022-04-05 04:57] VITALS: BP 146/67
[2022-04-05] MEDS: SODIUM CHLOR 0.9% PF (SALINE LOCK) 10ML VIAL/SYR IV SCH ×3 (05:37→21:32)
[2022-04-05 05:44] LABS: Basophils # (auto) 0 10 ^3/uL (0-0.2); Eosinophils # (auto) 0 10 ^3/uL (0-0.8); Eosinophils % (auto) 0.1 % (0.0-7.0); Hematocrit 27.7 % (36.0-46.0); Hemoglobin 8.7 g/dL (12.2-16.2); Lymphocytes # (auto) 0.5 10 ^3/uL (0.4-5.4); Lymphocytes % (auto) 8.8 % (10.0-50.0); Mean Corpuscular Hemoglobin 25.9 pg (28.0-32.0); Mean Corpuscular Hgb Conc. 31.4 g/dL (32.0-36.0); Mean Corpuscular Volume 82.3 fL (80.0-100.0); Monocytes # (auto) 0.1 10 ^3/uL (0-1.3); Monocytes % (auto) 2.3 % (0.0-12.0); Neutrophils # (auto) 4.8 10 ^3/uL (1.6-8.6); Neutrophils % (auto) 88.8 % (37.0-80.0); Nucleated Red Blood Cells % 0.1 %; Red Blood Cells 3.37 10^6/uL (4.0-5.20); White Blood Cell 5.5 10^3/uL (4.4-10.8)
[2022-04-05 05:45] LABS: Red Cell Distribution Width 20.5 % (11.8-14.3)
[2022-04-05 06:08] LABS: Potassium 4.3 mmol/L (3.5-5.1)
[2022-04-05 06:15] LABS: Albumin 2.7 g/dL (3.4-5.0); BUN/Creatinine Ratio 27.7; Calcium 8.3 mg/dL (8.5-10.1)
[2022-04-05 06:18] LABS: Bilirubin, Total 0.4 mg/dL (0.2-1.0); Total Protein 6.1 g/dL (6.4-8.2)
[2022-04-05 08:50] VITALS: BP 161/86
[2022-04-05] MEDS: POLYETHYLENE GLYCOL 17 GM PWDR PO SCH ×2 (12:12→21:33)
[2022-04-05] MEDS: ASPirin-EC 81 mg tab PO SCH (12:13)
[2022-04-05] MEDS: POTASSIUM CHL 10 Meq TABLET PO SCH (12:14)
[2022-04-05] MEDS: CITALOPRAM HYDROBR 20 MG TAB PO SCH (12:14)
[2022-04-05] MEDS: CARVEDILOL 12.5 MG TAB PO SCH ×2 (12:15→21:33)
[2022-04-05] MEDS: DOCUSATE SOD 100 MG CAP PO SCH ×2 (12:16→21:32)
[2022-04-05] MEDS: ATORVASTATIN 20 MG TAB PO SCH (12:16)
[2022-04-05] MEDS: buPROPion HCL 75 MG TAB PO SCH ×2 (12:16→21:33)
[2022-04-05] MEDS: PANTOPRAZOLE 40 MG TAB PO SCH (12:17)
[2022-04-05] MEDS: FUROSEMIDE 20 MG TAB PO SCH (12:17)
[2022-04-05] MEDS: ENOXAPARIN SOD 40 MG/0.4 ML SYRINGE SC SCH (12:18)
[2022-04-05] MEDS: LOSARTAN POTASSIUM 50 MG TAB PO SCH (12:18)
[2022-04-05] MEDS: methylPREDNISolone SOD SUCC 125 MG/2 ML VL IV SCH (12:21)
[2022-04-05] MEDS: amLODIPine BESYLATE 5 MG TAB PO SCH (12:28)
[2022-04-05 13:00] VITALS: BP 151/60
[2022-04-05 22:00] VITALS: BP 108/59
[2022-04-06] MEDS: diphenhdrAMINE HCL 50 MG/1 ML VL IV PRN ×2 (01:10→21:53)
[2022-04-06] MEDS: HYDROcodone-ACET 5/325MG TAB PO PRN ×2 (01:11→11:49)
[2022-04-06 05:00] VITALS: BP 140/66
[2022-04-06] MEDS: SODIUM CHLOR 0.9% PF (SALINE LOCK) 10ML VIAL/SYR IV SCH ×3 (05:09→21:52)
[2022-04-06 06:32] LABS: Basophils # (auto) 0.1 10 ^3/uL (0-0.2); Eosinophils # (auto) 0 10 ^3/uL (0-0.8); Hemoglobin 9.5 g/dL (12.2-16.2); Lymphocytes # (auto) 0.8 10 ^3/uL (0.4-5.4); White Blood Cell 6.9 10^3/uL (4.4-10.8)
[2022-04-06 06:34] LABS: Basophils % (auto) 0.8 % (0.0-2.0); Eosinophils % (auto) 0.1 % (0.0-7.0); Hematocrit 29.9 % (36.0-46.0); Lymphocytes % (auto) 11.5 % (10.0-50.0); Mean Corpuscular Hemoglobin 25.7 pg (28.0-32.0); Mean Corpuscular Hgb Conc. 31.8 g/dL (32.0-36.0); Mean Corpuscular Volume 80.8 fL (80.0-100.0); Monocytes # (auto) 0.5 10 ^3/uL (0-1.3); Monocytes % (auto) 6.6 % (0.0-12.0); Neutrophils # (auto) 5.6 10 ^3/uL (1.6-8.6)
[2022-04-06 06:35] LABS: Red Cell Distribution Width 20.2 % (11.8-14.3)
[2022-04-06 06:47] LABS: Albumin 2.7 g/dL (3.4-5.0); Calcium 8.7 mg/dL (8.5-10.1); Potassium 4.8 mmol/L (3.5-5.1)
[2022-04-06 06:49] LABS: BUN/Creatinine Ratio 27.3
[2022-04-06 06:52] LABS: Bilirubin, Total 0.4 mg/dL (0.2-1.0); Total Protein 5.8 g/dL (6.4-8.2)
[2022-04-06 09:00] VITALS: BP 107/68
[2022-04-06] MEDS: POLYETHYLENE GLYCOL 17 GM PWDR PO SCH ×2 (10:00→21:53)
[2022-04-06] MEDS: DOCUSATE SOD 100 MG CAP PO SCH ×2 (10:00→21:52)
[2022-04-06] MEDS: ASPirin-EC 81 mg tab PO SCH (11:45)
[2022-04-06] MEDS: CARVEDILOL 12.5 MG TAB PO SCH ×2 (11:46→21:52)
[2022-04-06] MEDS: amLODIPine BESYLATE 5 MG TAB PO SCH (11:47)
[2022-04-06] MEDS: POTASSIUM CHL 10 Meq TABLET PO SCH (11:47)
[2022-04-06] MEDS: PANTOPRAZOLE 40 MG TAB PO SCH (11:48)
[2022-04-06] MEDS: ATORVASTATIN 20 MG TAB PO SCH (11:49)
[2022-04-06] MEDS: CITALOPRAM HYDROBR 20 MG TAB PO SCH (11:49)
[2022-04-06] MEDS: buPROPion HCL 75 MG TAB PO SCH ×2 (11:49→21:53)
[2022-04-06] MEDS: LOSARTAN POTASSIUM 50 MG TAB PO SCH (11:50)
[2022-04-06] MEDS: ENOXAPARIN SOD 40 MG/0.4 ML SYRINGE SC SCH (11:50)
[2022-04-06] MEDS: methylPREDNISolone SOD SUCC 125 MG/2 ML VL IV SCH (11:52)
[2022-04-06] MEDS: FUROSEMIDE 20 MG TAB PO SCH (11:53)
[2022-04-06 12:49] VITALS: BP 103/69
[2022-04-06] MEDS: IPRATROPIUM BROM 0.5 MG/2.5ML INH SOL NEB SCH ×3 (14:00→22:00)
[2022-04-06] MEDS: ALBUTEROL SULF 2.5 MG/0.5ML(0.5%) NEB SOLN NEB SCH ×3 (14:00→22:00)
[2022-04-06 17:00] VITALS: BP 115/65
[2022-04-06] MEDS: HYDROcodone-ACET 7.5/325MG TAB PO PRN (19:46)
[2022-04-06 21:39] VITALS: BP 115/65
[2022-04-07] MEDS: HYDROcodone-ACET 7.5/325MG TAB PO PRN ×4 (00:31→15:32)
[2022-04-07] MEDS: IPRATROPIUM BROM 0.5 MG/2.5ML INH SOL NEB SCH (02:00)
[2022-04-07] MEDS: ALBUTEROL SULF 2.5 MG/0.5ML(0.5%) NEB SOLN NEB SCH (02:00)
[2022-04-07 05:00] VITALS: BP 140/65
[2022-04-07] MEDS: SODIUM CHLOR 0.9% PF (SALINE LOCK) 10ML VIAL/SYR IV SCH ×3 (05:47→22:45)
[2022-04-07] MEDS ORDERED: ALBUTEROL SULF 2.5 MG/0.5ML(0.5%) NEB SOLN NEB PRN (06:00)
[2022-04-07] MEDS ORDERED: IPRATROPIUM BROM 0.5 MG/2.5ML INH SOL NEB PRN (06:00)
[2022-04-07 06:16] LABS: Albumin 2.9 g/dL (3.4-5.0); Calcium 8.9 mg/dL (8.5-10.1); Potassium 4.3 mmol/L (3.5-5.1)
[2022-04-07 06:17] LABS: Basophils # (auto) 0 10 ^3/uL (0-0.2); Basophils % (auto) 0.5 % (0.0-2.0); Eosinophils # (auto) 0 10 ^3/uL (0-0.8); Hemoglobin 10.8 g/dL (12.2-16.2); Monocytes # (auto) 0.4 10 ^3/uL (0-1.3); Nucleated Red Blood Cells % 0.1 %
[2022-04-07 06:21] LABS: Eosinophils % (auto) 0.1 % (0.0-7.0); Hematocrit 32.9 % (36.0-46.0); Lymphocytes # (auto) 0.7 10 ^3/uL (0.4-5.4); Lymphocytes % (auto) 11.6 % (10.0-50.0); Mean Corpuscular Hemoglobin 26.3 pg (28.0-32.0); Mean Corpuscular Hgb Conc. 32.7 g/dL (32.0-36.0); Mean Corpuscular Volume 80.3 fL (80.0-100.0); Monocytes % (auto) 5.6 % (0.0-12.0); Neutrophils # (auto) 5.3 10 ^3/uL (1.6-8.6); Neutrophils % (auto) 82.2 % (37.0-80.0); Red Cell Distribution Width 19.8 % (11.8-14.3); White Blood Cell 6.4 10^3/uL (4.4-10.8)
[2022-04-07 06:22] LABS: BUN/Creatinine Ratio 29.7; Bilirubin, Total 0.6 mg/dL (0.2-1.0); Total Protein 6.2 g/dL (6.4-8.2)
[2022-04-07 09:00] VITALS: BP 127/68
[2022-04-07] MEDS: ASPirin-EC 81 mg tab PO SCH (10:43)
[2022-04-07] MEDS: ATORVASTATIN 20 MG TAB PO SCH (10:44)
[2022-04-07] MEDS: CITALOPRAM HYDROBR 20 MG TAB PO SCH (10:44)
[2022-04-07] MEDS: LOSARTAN POTASSIUM 50 MG TAB PO SCH (10:46)
[2022-04-07] MEDS: POTASSIUM CHL 10 Meq TABLET PO SCH (10:46)
[2022-04-07] MEDS: DOCUSATE SOD 100 MG CAP PO SCH ×2 (10:47→21:28)
[2022-04-07] MEDS: buPROPion HCL 75 MG TAB PO SCH ×2 (10:47→21:29)
[2022-04-07] MEDS: predniSONE 20 MG TAB PO SCH (10:48)
[2022-04-07] MEDS: CARVEDILOL 12.5 MG TAB PO SCH ×2 (10:51→21:28)
[2022-04-07] MEDS: POLYETHYLENE GLYCOL 17 GM PWDR PO SCH ×2 (10:51→21:35)
[2022-04-07] MEDS: amLODIPine BESYLATE 5 MG TAB PO SCH (10:51)
[2022-04-07] MEDS: PANTOPRAZOLE 40 MG TAB PO SCH (10:52)
[2022-04-07] MEDS: ENOXAPARIN SOD 40 MG/0.4 ML SYRINGE SC SCH (10:53)
[2022-04-07] MEDS: FUROSEMIDE 20 MG TAB PO SCH (11:26)
[2022-04-07 12:00] VITALS: BP 131/87
[2022-04-07 13:05] VITALS: BP 114/59
[2022-04-07 16:00] VITALS: BP 111/55
[2022-04-07] MEDS: diphenhdrAMINE HCL 50 MG/1 ML VL IV PRN (21:29)
[2022-04-08 04:44] VITALS: BP 124/75
[2022-04-08] MEDS: SODIUM CHLOR 0.9% PF (SALINE LOCK) 10ML VIAL/SYR IV SCH (05:26)
[2022-04-08] MEDS: HYDROcodone-ACET 7.5/325MG TAB PO PRN ×2 (05:54→13:15)
[2022-04-08 06:59] LABS: Hematocrit 32.6 % (36.0-46.0); Hemoglobin 10.9 g/dL (12.2-16.2); Mean Corpuscular Hemoglobin 26.9 pg (28.0-32.0); Mean Corpuscular Hgb Conc. 33.5 g/dL (32.0-36.0); Mean Corpuscular Volume 80.4 fL (80.0-100.0); Red Blood Cells 4.05 10^6/uL (4.0-5.20); Red Cell Distribution Width 19.3 % (11.8-14.3); White Blood Cell 7.4 10^3/uL (4.4-10.8)
[2022-04-08 07:02] LABS: Potassium 4.2 mmol/L (3.5-5.1)
[2022-04-08 07:08] LABS: Albumin 2.8 g/dL (3.4-5.0); BUN/Creatinine Ratio 27.4; Bilirubin, Total 0.5 mg/dL (0.2-1.0); Calcium 8.8 mg/dL (8.5-10.1); Total Protein 5.8 g/dL (6.4-8.2)
[2022-04-08 07:39] LABS: Basophils % (manual) 0 (0.0-2.0); Blast Cells 0; Eosinophils % (manual) 0 (0-7); Metamyelocytes % 0; Myelocytes % 0; Promyelocytes % 0; Reactive Lymphocytes 0
[2022-04-08 09:00] VITALS: BP 139/95
[2022-04-08 10:07] LABS: Band Neutrophils % (manual) 6; Lymphocytes % (manual) 10 (10.0-50.0); Monocytes % (manual) 5 (0-12)
[2022-04-08] MEDS: buPROPion HCL 75 MG TAB PO SCH (10:43)
[2022-04-08] MEDS: CITALOPRAM HYDROBR 20 MG TAB PO SCH (10:43)
[2022-04-08] MEDS: PANTOPRAZOLE 40 MG TAB PO SCH (10:45)
[2022-04-08] MEDS: amLODIPine BESYLATE 5 MG TAB PO SCH (10:45)
[2022-04-08] MEDS: DOCUSATE SOD 100 MG CAP PO SCH (10:45)
[2022-04-08] MEDS: predniSONE 20 MG TAB PO SCH (10:46)
[2022-04-08] MEDS: POTASSIUM CHL 10 Meq TABLET PO SCH (10:46)
[2022-04-08] MEDS: ASPirin-EC 81 mg tab PO SCH (10:46)
[2022-04-08] MEDS: ATORVASTATIN 20 MG TAB PO SCH (10:46)
[2022-04-08] MEDS: CARVEDILOL 12.5 MG TAB PO SCH (10:47)
[2022-04-08] MEDS: LOSARTAN POTASSIUM 50 MG TAB PO SCH (10:47)
[2022-04-08] MEDS: ENOXAPARIN SOD 40 MG/0.4 ML SYRINGE SC SCH (10:48)
[2022-04-08] MEDS: FUROSEMIDE 20 MG TAB PO SCH (10:48)
[2022-04-08] MEDS: POLYETHYLENE GLYCOL 17 GM PWDR PO SCH (10:50)
[2022-04-08 12:23] VITALS: BP 126/63
== END 2022-04-08 14:15 | DRG 291 ==
LOC: ER 14:10 → EDBD 14:10 → OVERFLOW 17:30 → EAST 23:12
PROVIDERS: ADMIT Nurse Practitioner Family; ATTEND Internal Medicine
DX: I11.0 Hypertensive heart disease with heart failure (principal); I50.43 Acute on chronic combined systolic (congestive) and diastolic (congestive) heart failure; J44.1 Chronic obstructive pulmonary disease with (acute) exacerbation; J96.10 Chronic respiratory failure, unspecified whether with hypoxia or hypercapnia; I48.20 Chronic atrial fibrillation, unspecified; E44.0 Moderate protein-calorie malnutrition; I25.10 Atherosclerotic heart disease of native coronary artery without angina pectoris; K59.00 Constipation, unspecified; E66.01 Morbid (severe) obesity due to excess calories; E78.5 Hyperlipidemia, unspecified; D64.9 Anemia, unspecified; F10.10 Alcohol abuse, uncomplicated; F11.10 Opioid abuse, uncomplicated; F17.210 Nicotine dependence, cigarettes, uncomplicated; Z68.33 Body mass index [BMI] 33.0-33.9, adult; Z88.2 Allergy status to sulfonamides; Z88.8 Allergy status to other drugs, medicaments and biological substances; Z95.810 Presence of automatic (implantable) cardiac defibrillator; I25.2 Old myocardial infarction; Z80.3 Family history of malignant neoplasm of breast; Z86.73 Personal history of transient ischemic attack (TIA), and cerebral infarction without residual deficits; Z99.81 Dependence on supplemental oxygen; Z90.49 Acquired absence of other specified parts of digestive tract; Z71.41 Alcohol abuse counseling and surveillance of alcoholic; Z71.6 Tobacco abuse counseling
CPT/HCPCS: 36415; 71045; 71275; 74018; 80053; 81001; 83880; 84484; 85007; 85025; 85027; 87081; 87426; 93005; 94640; 96361; 96374; 96375; 97110; 97116; 97163; 97530; C9113; G0378

== ENCOUNTER 2023-02-16 04:03 | Inpatient (IN) | payer OTHER, MEDICAID ==
[2023-02-15 18:44] VITALS: PULSE 74; RESP 18; O2SAT 94
[2023-02-15 18:54] VITALS: PULSE 79; RESP 18; O2SAT 99
[~2023-02-16] VITALS: Ht 162.6 cm; Wt 75.6 kg
[2023-02-16] VITALS (11 sets, daily range): BP systolic 121–127; BP diastolic 90–93; PULSE 75–115; RESP 15–21; TEMP 97.4–97.8; O2SAT 92–100
[~2023-02-16 04:03] MED LIST changes: -LOSA-69 PO; +LOSA50TA46 PO; +MAGN400T26 PO; +OMEP1CAP70 PO; -OMEP20TA PO; +POTA-228 PO; -POTA10TA32 PO
[2023-02-16] MEDS ORDERED: DexAMETHasone SOD PHOS 10MG/1ML VIAL INJ IV ONE (04:15)
[2023-02-16] MEDS ORDERED: MAGNESIUM SULFATE 1GM/100ML 100 ML IV ONE (04:15)
[2023-02-16] MEDS ORDERED: IPRATROPIUM BROM 0.5 MG/2.5ML INH SOL NEB ONE (04:15)
[2023-02-16] MEDS ORDERED: ALBUTEROL SULF 2.5 MG/0.5ML(0.5%) NEB SOLN NEB ONE ×2 (04:15→07:45)
[2023-02-16 04:59] LABS: Base Excess -9.8 mmol/L (-2.0-2.0)
[2023-02-16] MEDS ORDERED: MORPHINE SULFATE 4 MG/ML SYR/VIAL IV ONE (05:00)
[2023-02-16] MEDS ORDERED: ONDANSETRON HCL 4 MG/2 ML VIAL IV ONE (05:00)
[2023-02-16 05:01] LABS: Basophils # (auto) 0.1 10 ^3/uL (0-0.2); Eosinophils # (auto) 0.2 10 ^3/uL (0-0.8); Monocytes # (auto) 0.7 10 ^3/uL (0-1.3); Neutrophils # (auto) 4.2 10 ^3/uL (1.6-8.6)
[2023-02-16 05:02] LABS: Basophils % (auto) 1.3 % (0.0-2.0); Eosinophils % (auto) 2.1 % (0.0-7.0); Hematocrit 34.6 % (36.0-46.0); Lymphocytes # (auto) 2.5 10 ^3/uL (0.4-5.4); Lymphocytes % (auto) 32.6 % (10.0-50.0); Mean Corpuscular Hemoglobin 22.2 pg (28.0-32.0); Mean Corpuscular Volume 76.5 fL (80.0-100.0); Nucleated Red Blood Cells % 0.2 %; Red Blood Cells 4.52 10^6/uL (4.0-5.20); White Blood Cell 7.7 10^3/uL (4.4-10.8)
[2023-02-16 05:12] LABS: Red Cell Distribution Width 20.3 % (11.8-14.3)
[2023-02-16 05:13] LABS: Alanine Aminotransferase 27 U/L (7-40); Albumin 4.2 g/dL (3.2-4.8); Alkaline Phosphatase 89 U/L (46-116); Anion Gap 11.7 (5-15); Aspartate Aminotransferase 54 U/L (13-40); BUN/Creatinine Ratio 13.6 (10.0-20.0); Blood Urea Nitrogen 23 mg/dL (9-23); Calcium 8.4 mg/dL (8.7-10.4); Carbon Dioxide 19.3 mmol/L (20-30); Chloride 109 mmol/L (98-107); Glucose 277 mg/dL (74-106); Magnesium 2.1 mg/dL (1.6-2.6); Potassium 5.5 mmol/L (3.5-5.1); Sodium 140 mmol/L (136-145)
[2023-02-16 05:14] LABS: Bilirubin, Total 0.4 mg/dL (0.2-1.0); Total Protein 6.9 g/dL (5.7-8.2)
[2023-02-16] MEDS ORDERED: CALCIUM GLUC 1,000mg/50ml-NS 50 ML IV ONE ×2 (06:00→07:45)
[2023-02-16] MEDS ORDERED: InsuLIN REG 1unit/0.01ml Soln (100units/ml) IV ONE ×2 (06:00→07:45)
[2023-02-16] MEDS ORDERED: DEXTROSE (50%) 50ML SYRG IV ONE (06:00)
[2023-02-16 06:35] LABS: INR 1.11 (0.9-1.15); Partial Thromboplastin Time 25.7 SEC (24.5-34.5); Prothrombin Time 11.6 sec (9.3-11.8)
[2023-02-16] MEDS ORDERED: FUROSEMIDE 20 MG/2 ML VIAL IV ONE ×2 (07:30→09:30)
[2023-02-16] MEDS ORDERED: AZITHROMYCIN 500MG/ 250ML 250 ML IV ONE (07:30)
[2023-02-16] MEDS ORDERED: cefTRIAXone 1GM/50ML D5W 50 ML IV ONE (07:30)
[2023-02-16] MEDS ORDERED: ASPirin-EC 81 mg tab PO ONE (07:45)
[2023-02-16] MEDS ORDERED: ALBUTEROL SULF 2.5 MG/0.5ML(0.5%) NEB SOLN NEB PRN (09:30)
[2023-02-16] MEDS ORDERED: methylPREDNISolone SOD SUCC 40 MG/ML VL IV ONE (09:30)
[2023-02-16] MEDS ORDERED: NITROGLYCERIN 0.4 MG SL TAB SL PRN (09:45)
[2023-02-16] MEDS ORDERED: MORPHINE SULFATE INJ 2 MG/ml SYRG IV PRN (09:45)
[2023-02-16 09:54] LABS: Triglycerides 117 mg/dL (< 150)
[2023-02-16 09:54] LABS: Urine Bacteria FEW /hpf (None Seen); Urine Blood Negative /uL (Negative); Urine Clarity HAZY (Clear); Urine Color Yellow (Yellow); Urine Mucus FEW (None Seen); Urine Protein, UAD 1+ (Negative); Urine Specific Gravity 1.019 (1.001-1.035); Urine Urobilinogen Normal (Negative); Urine WBC 22 /hpf (0 - 5); Urine pH 5.5 (5.0-8.0)
[2023-02-16] MEDS: FUROSEMIDE 20 MG/2 ML VIAL IV SCH (09:54)
[2023-02-16] MEDS: methylPREDNISolone SOD SUCC 40 MG/ML VL IV SCH ×2 (09:54→22:58)
[2023-02-16 09:55] LABS: LDL Cholesterol 50 mg/dL (< 100)
[2023-02-16] MEDS: ASPirin-EC 81 mg tab PO SCH (09:55)
[2023-02-16 09:56] LABS: Cholesterol 129 mg/dL (< 200); HDL Cholesterol 58 mg/dL (40-59)
[2023-02-16] MEDS: MAGNESIUM OXIDE 400 MG TAB PO SCH (10:02)
[2023-02-16] MEDS: ATORVASTATIN 20 MG TAB PO SCH (10:02)
[2023-02-16] MEDS: CARVEDILOL 12.5 MG TAB PO SCH ×2 (10:02→22:56)
[2023-02-16] MEDS: ENOXAPARIN SOD 40 MG/0.4 ML SYRINGE SC SCH (10:03)
[2023-02-16] MEDS: buPROPion HCL 75 MG TAB PO SCH (10:03)
[2023-02-16] MEDS: LOSARTAN POTASSIUM 50 MG TAB PO SCH (10:03)
[2023-02-16 10:08] LABS: COVID19 ANTIGEN SOFIA FIA NEGATIVE (NEGATIVE)
[2023-02-16 10:09] LABS: Rapid Influenza A Negative (Negative); Rapid Influenza B Negative (Negative)
[2023-02-16] MEDS: HYDROcodone-ACET 5/325MG TAB PO PRN ×2 (10:24→19:11)
[2023-02-16] MEDS: ALBUTEROL SULF 2.5 MG/0.5ML(0.5%) NEB SOLN NEB SCH ×4 (10:40→22:42)
[2023-02-16] MEDS: IPRATROPIUM BROM 0.5 MG/2.5ML INH SOL NEB SCH ×4 (10:40→22:42)
[2023-02-16] MEDS ORDERED: LEVOTHYROXINE SODIUM 50 MCG TAB PO ONE (10:45)
[2023-02-16 11:07] LABS: Free T3 2.55 pg/mL (2.3-4.2)
[2023-02-16 11:08] LABS: Free T4 (Free Thyroxine) 0.8 ng/dL (0.89-1.76)
[2023-02-16 11:15] LABS: Base Excess -4.7 mmol/L (-2.0-2.0)
[2023-02-16] MEDS: SODIUM BICARBONATE 650 MG TAB PO SCH ×2 (11:15→22:56)
[2023-02-16] MEDS ORDERED: SODIUM BICARBONATE 8.4 % INJ 50ML VIAL IV ONE (13:30)
[2023-02-16] MEDS: ACETAMINOPHEN 325 MG TAB PO PRN ×2 (14:11→23:52)
[2023-02-16 19:58] LABS: Basophils # (auto) 0.1 10 ^3/uL (0-0.2); Basophils % (auto) 0.7 % (0.0-2.0); Eosinophils # (auto) 0 10 ^3/uL (0-0.8); Hematocrit 29.9 % (36.0-46.0); Hemoglobin 9.1 g/dL (12.2-16.2); Lymphocytes # (auto) 0.7 10 ^3/uL (0.4-5.4); Mean Corpuscular Hemoglobin 22.2 pg (28.0-32.0); Mean Corpuscular Hgb Conc. 30.3 g/dL (32.0-36.0); Mean Corpuscular Volume 73.2 fL (80.0-100.0); Monocytes # (auto) 0 10 ^3/uL (0-1.3); Monocytes % (auto) 0.6 % (0.0-12.0); Neutrophils # (auto) 7.4 10 ^3/uL (1.6-8.6); Neutrophils % (auto) 90.7 % (37.0-80.0); Nucleated Red Blood Cells % 0.1 %; Red Blood Cells 4.08 10^6/uL (4.0-5.20); White Blood Cell 8.1 10^3/uL (4.4-10.8)
[2023-02-16] MEDS ORDERED: TEMAZEPAM 15 MG CAP PO ONE (20:15)
[2023-02-16 20:16] LABS: Alanine Aminotransferase 59 U/L (7-40); Albumin 4.3 g/dL (3.2-4.8); Alkaline Phosphatase 92 U/L (46-116); Anion Gap 9.9 (5-15); Aspartate Aminotransferase 77 U/L (13-40); BUN/Creatinine Ratio 19.1 (10.0-20.0); Bilirubin, Total 0.5 mg/dL (0.2-1.0); Blood Urea Nitrogen 30 mg/dL (9-23); Calcium 8.8 mg/dL (8.5-10.1); Carbon Dioxide 23.1 mmol/L (20-30); Chloride 103 mmol/L (98-107); Glucose 210 mg/dL (74-106); Potassium 4.5 mmol/L (3.5-5.1); Sodium 136 mmol/L (136-145)
[2023-02-17] VITALS (20 sets, daily range): BP systolic 108–163; BP diastolic 53–116; PULSE 74–82; RESP 16–20; TEMP 97.5–97.8; O2SAT 94–100
[2023-02-17] MEDS: ALBUTEROL SULF 2.5 MG/0.5ML(0.5%) NEB SOLN NEB SCH ×6 (02:13→22:00)
[2023-02-17] MEDS: IPRATROPIUM BROM 0.5 MG/2.5ML INH SOL NEB SCH ×6 (02:13→22:00)
[2023-02-17] MEDS: HYDROcodone-ACET 5/325MG TAB PO PRN ×2 (05:11→15:26)
[2023-02-17] MEDS: LEVOTHYROXINE SODIUM 50 MCG TAB PO SCH (06:33)
[2023-02-17 06:54] LABS: Basophils # (auto) 0 10 ^3/uL (0-0.2); Basophils % (auto) 0.3 % (0.0-2.0); Eosinophils # (auto) 0 10 ^3/uL (0-0.8); Hemoglobin 9.4 g/dL (12.2-16.2); Lymphocytes # (auto) 0.7 10 ^3/uL (0.4-5.4); Monocytes # (auto) 0.1 10 ^3/uL (0-1.3); Monocytes % (auto) 2.2 % (0.0-12.0)
[2023-02-17 06:57] LABS: Eosinophils % (auto) 0.2 % (0.0-7.0); Hematocrit 30.7 % (36.0-46.0); Lymphocytes % (auto) 10.4 % (10.0-50.0); Mean Corpuscular Hemoglobin 22.5 pg (28.0-32.0); Mean Corpuscular Hgb Conc. 30.7 g/dL (32.0-36.0); Mean Corpuscular Volume 73.2 fL (80.0-100.0); Neutrophils # (auto) 5.7 10 ^3/uL (1.6-8.6); Neutrophils % (auto) 86.9 % (37.0-80.0); Nucleated Red Blood Cells % 0.4 %; Red Blood Cells 4.19 10^6/uL (4.0-5.20); Red Cell Distribution Width 19.1 % (11.8-14.3); White Blood Cell 6.6 10^3/uL (4.4-10.8)
[2023-02-17 07:23] LABS: Alanine Aminotransferase 51 U/L (7-40); Albumin 4.2 g/dL (3.2-4.8); Alkaline Phosphatase 84 U/L (46-116); Anion Gap 8.9 (5-15); Aspartate Aminotransferase 47 U/L (13-40); BUN/Creatinine Ratio 23.1 (10.0-20.0); Blood Urea Nitrogen 30 mg/dL (9-23); Calcium 8.9 mg/dL (8.5-10.1); Carbon Dioxide 22.1 mmol/L (20-30); Chloride 104 mmol/L (98-107); Glucose 179 mg/dL (74-106); Potassium 4.6 mmol/L (3.5-5.1); Sodium 135 mmol/L (136-145)
[2023-02-17 07:24] LABS: Bilirubin, Total 0.5 mg/dL (0.2-1.0); Total Protein 6.9 g/dL (5.7-8.2)
[2023-02-17 08:23] LABS: Base Excess -2.1 mmol/L (-2.0-2.0)
[2023-02-17] MEDS: cefTRIAXone 1GM/50ML D5W 50 ML IV SCH (09:26)
[2023-02-17] MEDS: FUROSEMIDE 20 MG/2 ML VIAL IV SCH (09:26)
[2023-02-17] MEDS: methylPREDNISolone SOD SUCC 40 MG/ML VL IV SCH ×2 (09:27→21:38)
[2023-02-17] MEDS: ASPirin-EC 81 mg tab PO SCH (09:28)
[2023-02-17] MEDS: CARVEDILOL 12.5 MG TAB PO SCH ×2 (09:28→21:38)
[2023-02-17] MEDS: LOSARTAN POTASSIUM 50 MG TAB PO SCH (09:28)
[2023-02-17] MEDS: buPROPion HCL 75 MG TAB PO SCH (09:29)
[2023-02-17] MEDS: ATORVASTATIN 20 MG TAB PO SCH (09:29)
[2023-02-17] MEDS: MAGNESIUM OXIDE 400 MG TAB PO SCH (09:29)
[2023-02-17] MEDS: PANTOPRAZOLE 40 MG TAB PO SCH (09:29)
[2023-02-17] MEDS: ENOXAPARIN SOD 40 MG/0.4 ML SYRINGE SC SCH (09:30)
[2023-02-17] MEDS: SODIUM BICARBONATE 650 MG TAB PO SCH ×2 (09:30→21:37)
[2023-02-17] MEDS: AZITHROMYCIN 500MG/ 250ML 250 ML IV SCH (10:44)
[2023-02-17 13:01] LABS: Protein, Urine 9.4 mg/dL (0.0-11.9)
[2023-02-17 13:04] LABS: Creatinine, Urine 10.64 mg/dL (30.0-125.0); Urine Protein/Creatinine Ratio 0.88
[2023-02-17] MEDS: TEMAZEPAM 15 MG CAP PO PRN (21:38)
[2023-02-18] VITALS (13 sets, daily range): BP systolic 140–170; BP diastolic 53–108; PULSE 17–77; RESP 16–20; TEMP 97.5–98.8; O2SAT 95–98
[2023-02-18] MEDS: IPRATROPIUM BROM 0.5 MG/2.5ML INH SOL NEB SCH ×6 (02:00→22:00)
[2023-02-18] MEDS: ALBUTEROL SULF 2.5 MG/0.5ML(0.5%) NEB SOLN NEB SCH ×6 (02:00→22:00)
[2023-02-18 05:41] LABS: Basophils # (auto) 0 10 ^3/uL (0-0.2); Eosinophils # (auto) 0.1 10 ^3/uL (0-0.8); Hemoglobin 8.9 g/dL (12.2-16.2); Monocytes # (auto) 0.2 10 ^3/uL (0-1.3); Neutrophils # (auto) 7.4 10 ^3/uL (1.6-8.6); White Blood Cell 8.1 10^3/uL (4.4-10.8)
[2023-02-18 05:45] LABS: Basophils % (auto) 0.2 % (0.0-2.0); Eosinophils % (auto) 0.9 % (0.0-7.0); Hematocrit 28.4 % (36.0-46.0); Lymphocytes # (auto) 0.4 10 ^3/uL (0.4-5.4); Lymphocytes % (auto) 5.4 % (10.0-50.0); Mean Corpuscular Hgb Conc. 31.3 g/dL (32.0-36.0); Mean Corpuscular Volume 73.6 fL (80.0-100.0); Neutrophils % (auto) 91.5 % (37.0-80.0); Nucleated Red Blood Cells % 0.5 %; Red Blood Cells 3.86 10^6/uL (4.0-5.20); Red Cell Distribution Width 19.9 % (11.8-14.3)
[2023-02-18 05:48] LABS: Alanine Aminotransferase 40 U/L (7-40); Alkaline Phosphatase 72 U/L (46-116); Anion Gap 7.6 (5-15); Aspartate Aminotransferase 33 U/L (13-40); BUN/Creatinine Ratio 21.7 (10.0-20.0); Bilirubin, Total 0.4 mg/dL (0.2-1.0); Blood Urea Nitrogen 26 mg/dL (9-23); Calcium 8.9 mg/dL (8.5-10.1); Carbon Dioxide 26.4 mmol/L (20-30); Chloride 103 mmol/L (98-107); Glucose 205 mg/dL (74-106); Potassium 4.6 mmol/L (3.5-5.1); Sodium 137 mmol/L (136-145); Total Protein 6.5 g/dL (5.7-8.2)
[2023-02-18] MEDS: LEVOTHYROXINE SODIUM 50 MCG TAB PO SCH (06:14)
[2023-02-18] MEDS ORDERED: DOCUSATE SOD 100 MG CAP PO PRN (09:00)
[2023-02-18] MEDS: cefTRIAXone 1GM/50ML D5W 50 ML IV SCH (09:07)
[2023-02-18] MEDS: FUROSEMIDE 20 MG/2 ML VIAL IV SCH (09:10)
[2023-02-18] MEDS: MAGNESIUM OXIDE 400 MG TAB PO SCH (09:11)
[2023-02-18] MEDS: ENOXAPARIN SOD 40 MG/0.4 ML SYRINGE SC SCH (09:11)
[2023-02-18] MEDS: PANTOPRAZOLE 40 MG TAB PO SCH (09:12)
[2023-02-18] MEDS: LOSARTAN POTASSIUM 50 MG TAB PO SCH (09:12)
[2023-02-18] MEDS: buPROPion HCL 75 MG TAB PO SCH (09:12)
[2023-02-18] MEDS: CARVEDILOL 12.5 MG TAB PO SCH ×2 (09:13→21:00)
[2023-02-18] MEDS: ASPirin-EC 81 mg tab PO SCH (09:13)
[2023-02-18] MEDS: SODIUM BICARBONATE 650 MG TAB PO SCH (09:13)
[2023-02-18] MEDS: ATORVASTATIN 20 MG TAB PO SCH (09:13)
[2023-02-18] MEDS: methylPREDNISolone SOD SUCC 40 MG/ML VL IV SCH ×2 (09:13→21:00)
[2023-02-18] MEDS ORDERED: LEVO500T91 PO (10:13)
[2023-02-18] MEDS: AZITHROMYCIN 500MG/ 250ML 250 ML IV SCH (10:40)
[2023-02-18] MEDS: HYDROcodone-ACET 5/325MG TAB PO PRN ×2 (11:13→20:59)
[2023-02-18] MEDS ORDERED: MEROPENEM 1GM IVPB 100 ML IV ONE (13:15)
[2023-02-18] MEDS ORDERED: ERTAPENEM SOD INJ 1 GM in SODIUM CHL 0.9% 50 ML IV ONE (19:00)
[2023-02-18] MEDS: TEMAZEPAM 15 MG CAP PO PRN (20:59)
[2023-02-18] MEDS ORDERED: MEROPENEM 1GM IVPB 100 ML IV SCH (22:00)
[2023-02-19] VITALS (9 sets, daily range): BP systolic 148–168; BP diastolic 74–98; PULSE 69–81; RESP 18–20; TEMP 97.9–98.4; O2SAT 95–99
[2023-02-19] MEDS: ACETAMINOPHEN 325 MG TAB PO PRN (01:56)
[2023-02-19] MEDS: ALBUTEROL SULF 2.5 MG/0.5ML(0.5%) NEB SOLN NEB SCH ×5 (02:00→18:00)
[2023-02-19] MEDS: IPRATROPIUM BROM 0.5 MG/2.5ML INH SOL NEB SCH ×5 (02:00→18:00)
[2023-02-19] MEDS: HYDROcodone-ACET 5/325MG TAB PO PRN ×2 (05:10→18:25)
[2023-02-19] MEDS: LEVOTHYROXINE SODIUM 50 MCG TAB PO SCH (06:03)
[2023-02-19 06:22] LABS: Anion Gap 4.1 (5-15); Carbon Dioxide 30.9 mmol/L (20-30); Chloride 103 mmol/L (98-107); Potassium 4.2 mmol/L (3.5-5.1); Sodium 138 mmol/L (136-145)
[2023-02-19 06:23] LABS: Calcium 8.9 mg/dL (8.5-10.1)
[2023-02-19 06:28] LABS: BUN/Creatinine Ratio 24.6 (10.0-20.0); Blood Urea Nitrogen 29 mg/dL (9-23); Glucose 180 mg/dL (74-106)
[2023-02-19 07:10] LABS: Basophils # (auto) 0 10 ^3/uL (0-0.2); Eosinophils # (auto) 0 10 ^3/uL (0-0.8); Hemoglobin 8.6 g/dL (12.2-16.2); Lymphocytes # (auto) 0.4 10 ^3/uL (0.4-5.4); Monocytes # (auto) 0.2 10 ^3/uL (0-1.3); Neutrophils # (auto) 5.9 10 ^3/uL (1.6-8.6); Nucleated Red Blood Cells % 0.2 %; White Blood Cell 6.5 10^3/uL (4.4-10.8)
[2023-02-19 07:12] LABS: Basophils % (auto) 0.1 % (0.0-2.0); Hematocrit 27.8 % (36.0-46.0); Lymphocytes % (auto) 5.8 % (10.0-50.0); Mean Corpuscular Hemoglobin 22.4 pg (28.0-32.0); Mean Corpuscular Hgb Conc. 30.9 g/dL (32.0-36.0); Mean Corpuscular Volume 72.5 fL (80.0-100.0); Monocytes % (auto) 2.9 % (0.0-12.0); Neutrophils % (auto) 91.2 % (37.0-80.0); Red Blood Cells 3.83 10^6/uL (4.0-5.20); Red Cell Distribution Width 19.3 % (11.8-14.3)
[2023-02-19] MEDS: methylPREDNISolone SOD SUCC 40 MG/ML VL IV SCH (09:11)
[2023-02-19] MEDS: FUROSEMIDE 20 MG/2 ML VIAL IV SCH (09:11)
[2023-02-19] MEDS: ATORVASTATIN 20 MG TAB PO SCH (09:12)
[2023-02-19] MEDS: ENOXAPARIN SOD 40 MG/0.4 ML SYRINGE SC SCH (09:12)
[2023-02-19] MEDS: buPROPion HCL 75 MG TAB PO SCH (09:12)
[2023-02-19] MEDS: CARVEDILOL 12.5 MG TAB PO SCH (09:13)
[2023-02-19] MEDS: ASPirin-EC 81 mg tab PO SCH (09:13)
[2023-02-19] MEDS: LOSARTAN POTASSIUM 50 MG TAB PO SCH (09:14)
[2023-02-19] MEDS ORDERED: AZITHROMYCIN 250 MG TAB PO SCH (10:00)
[2023-02-19] MEDS: MAGNESIUM OXIDE 400 MG TAB PO SCH (14:47)
[2023-02-19] MEDS ORDERED: ERTAPENEM SOD INJ 1 GM in SODIUM CHL 0.9% 50 ML IV SCH (18:00)
== END 2023-02-19 19:15 | disposition home health service (06) | DRG 177 ==
LOC: EDBD 04:03 → ER 04:03 → TELE 09:38 → TELE-CENTR 21:36 → CENTRAL 21:38 → TELE-CENTR 23:59
PROVIDERS: ADMIT Internal Medicine; ATTEND Internal Medicine
PROC: 5A09357 Assistance with Respiratory Ventilation, Less than 24 Consecutive Hours, Continuous Positive Airway Pressure (ICD-10-PCS; principal; 2023-02-16)
PROC: 5A09357 Assistance with Respiratory Ventilation, Less than 24 Consecutive Hours, Continuous Positive Airway Pressure (ICD-10-PCS; 2023-02-17)
PROC: 05HB33Z Insertion of Infusion Device into Right Basilic Vein, Percutaneous Approach (ICD-10-PCS; 2023-02-18)
PROC: B54MZZA Ultrasonography of Right Upper Extremity Veins, Guidance (ICD-10-PCS; 2023-02-18)
DX: J15.6 Pneumonia due to other Gram-negative bacteria (principal); I50.23 Acute on chronic systolic (congestive) heart failure; J96.21 Acute and chronic respiratory failure with hypoxia; I13.0 Hypertensive heart and chronic kidney disease with heart failure and stage 1 through stage 4 chronic kidney disease, or unspecified chronic kidney disease; N17.9 Acute kidney failure, unspecified; N30.00 Acute cystitis without hematuria; J47.0 Bronchiectasis with acute lower respiratory infection; D68.9 Coagulation defect, unspecified; E87.20 Acidosis, unspecified; Z99.81 Dependence on supplemental oxygen; Z20.822 Contact with and (suspected) exposure to COVID-19; E11.22 Type 2 diabetes mellitus with diabetic chronic kidney disease; D64.9 Anemia, unspecified; E03.9 Hypothyroidism, unspecified; E66.01 Morbid (severe) obesity due to excess calories; E11.65 Type 2 diabetes mellitus with hyperglycemia; E78.5 Hyperlipidemia, unspecified; E87.5 Hyperkalemia; I25.10 Atherosclerotic heart disease of native coronary artery without angina pectoris; I48.91 Unspecified atrial fibrillation; N18.32 Chronic kidney disease, stage 3b; N95.0 Postmenopausal bleeding; Z86.73 Personal history of transient ischemic attack (TIA), and cerebral infarction without residual deficits; I25.2 Old myocardial infarction; Z79.899 Other long term (current) drug therapy; Z90.49 Acquired absence of other specified parts of digestive tract; Z95.0 Presence of cardiac pacemaker; Z79.82 Long term (current) use of aspirin; Z85.3 Personal history of malignant neoplasm of breast; Z88.2 Allergy status to sulfonamides; Z88.8 Allergy status to other drugs, medicaments and biological substances; Z92.3 Personal history of irradiation; Z80.3 Family history of malignant neoplasm of breast; Z85.41 Personal history of malignant neoplasm of cervix uteri; Z68.28 Body mass index [BMI] 28.0-28.9, adult
CPT/HCPCS: 36415; 36600; 71045; 71275; 76775; 76830; 76856; 80048; 80053; 80061; 81001; 82570; 82805; 82962; 83036; 83735; 83880; 84132; 84156; 84300; 84439; 84443; 84481; 84484; 85025; 85379; 85610; 85730; 87081; 87086; 87088; 87186; 87426; 87804; 93005; 93306; 93970; 94640; 94660; 96365; 96367; 96375; 97110; 97116; 97163; 97530; 99291; G0378; J0696; J1100; J1335; J1815; J2185; J2405

== ENCOUNTER 2023-02-28 07:38 | Inpatient (IN) | payer OTHER, MEDICAID ==
[~2023-02-28] VITALS: Ht 167.6 cm; Wt 74.5 kg
[~2023-02-28 07:38] MED LIST changes: +LEVO500T91 PO
[2023-02-28 08:23] LABS: Alanine Aminotransferase 18 U/L (7-40); Alkaline Phosphatase 66 U/L (46-116); Anion Gap 8 (5-15); Aspartate Aminotransferase 17 U/L (13-40); BUN/Creatinine Ratio 21.7 (10.0-20.0); Blood Urea Nitrogen 28 mg/dL (9-23); Calcium 9.2 mg/dL (8.5-10.1); Carbon Dioxide 23 mmol/L (20-30); Chloride 104 mmol/L (98-107); Glucose 101 mg/dL (74-106); Potassium 3.9 mmol/L (3.5-5.1); Sodium 135 mmol/L (136-145)
[2023-02-28 08:24] LABS: Bilirubin, Total 0.4 mg/dL (0.2-1.0); Total Protein 6.3 g/dL (5.7-8.2)
[2023-02-28 08:43] LABS: Basophils # (auto) 0.1 10 ^3/uL (0-0.2); Eosinophils # (auto) 0.1 10 ^3/uL (0-0.8); Lymphocytes # (auto) 1.5 10 ^3/uL (0.4-5.4); Mean Corpuscular Volume 74.5 fL (80.0-100.0); Monocytes # (auto) 1.1 10 ^3/uL (0-1.3)
[2023-02-28 08:45] LABS: Basophils % (auto) 0.9 % (0.0-2.0); Eosinophils % (auto) 1.7 % (0.0-7.0); Hematocrit 30.8 % (36.0-46.0); Hemoglobin 9.5 g/dL (12.2-16.2); Lymphocytes % (auto) 20.2 % (10.0-50.0); Mean Corpuscular Hgb Conc. 30.8 g/dL (32.0-36.0); Monocytes % (auto) 14.9 % (0.0-12.0); Neutrophils # (auto) 4.7 10 ^3/uL (1.6-8.6); Neutrophils % (auto) 62.3 % (37.0-80.0); Nucleated Red Blood Cells % 0.1 %; Red Blood Cells 4.13 10^6/uL (4.0-5.20); Red Cell Distribution Width 19.9 % (11.8-14.3); White Blood Cell 7.5 10^3/uL (4.4-10.8)
[2023-02-28 08:55] VITALS: PULSE 75; RESP 16; O2SAT 96
[2023-02-28 10:47] LABS: Anisocytosis Moderate
[2023-02-28 10:48] LABS: Hypochromia Moderate
[2023-02-28 10:49] LABS: Platelet Estimate Decreased
[2023-02-28] MEDS ORDERED: DOCUSATE SOD 100 MG CAP PO PRN (13:00)
[2023-02-28] MEDS ORDERED: ALBUTEROL SULF 2.5 MG/0.5ML(0.5%) NEB SOLN NEB PRN (13:00)
[2023-02-28] MEDS ORDERED: IPRATROPIUM BROM 0.5 MG/2.5ML INH SOL NEB PRN (13:00)
[2023-02-28] MEDS ORDERED: ONDANSETRON HCL 4 MG/2 ML VIAL IV PRN (13:00)
[2023-02-28] MEDS ORDERED: SODIUM CHLORIDE 0.9% 1,000 ML IV SCH (13:00)
[2023-02-28 13:01] LABS: Urine Amorphous Crystal FEW /hpf (None Seen); Urine Bacteria NONE SEEN /hpf (None Seen); Urine Blood 3+ /uL (Negative); Urine Clarity CLOUDY (Clear); Urine Color Brown (Yellow); Urine Mucus FEW (None Seen); Urine Protein, UAD TRACE (Negative); Urine Specific Gravity 1.013 (1.001-1.035); Urine Urobilinogen Normal (Negative); Urine WBC 92 /hpf (0 - 5)
[2023-02-28] MEDS ORDERED: LORazepam 2MG/ML-1ML VIAL IV PRN (13:15)
[2023-02-28] MEDS: SODIUM CHLORIDE 0.9% 1,000 ML IV SCH (14:19)
[2023-02-28 14:26] VITALS: BP 121/65; PULSE 75; RESP 16; TEMP 97.5; O2SAT 100
[2023-02-28 14:29] LABS: Amphetamine Screen, Urine Neg (NEGATIVE); Barbiturate Scree,Urine Neg (NEGATIVE); Benzodiazephine Screen, Urine Neg (NEGATIVE); Cannabinoid Screen, Urine Neg (NEGATIVE); Cocaine Screen, Urine Neg (NEGATIVE); Opiate Scree,Urine Neg (NEGATIVE); Phencyclidine Screen, Urine Neg (NEGATIVE)
[2023-02-28 14:37] LABS: Magnesium 1.9 mg/dL (1.6-2.6)
[2023-02-28 14:38] LABS: Phosphorus 3.9 mg/dL (2.4-5.1)
[2023-02-28 15:30] LABS: Creatinine, Urine 42.79 mg/dL (30.0-125.0)
[2023-02-28] MEDS: cefTRIAXone 1GM/50ML D5W 50 ML IV SCH (18:53)
[2023-02-28 19:52] VITALS: O2SAT 96
[2023-02-28 20:05] VITALS: PULSE 75; RESP 15; O2SAT 92
[2023-02-28] MEDS ORDERED: OMEPRAZOLE 40MG/20ML ORAL SUSP PO SCH (22:00)
[2023-02-28] MEDS: CARVEDILOL 12.5 MG TAB PO SCH (22:50)
[2023-03-01] VITALS (8 sets, daily range): BP systolic 99–149; BP diastolic 47–73; PULSE 74–77; RESP 16–21; TEMP 97.7–98.4; O2SAT 92–100
[2023-03-01] MEDS ORDERED: MELATONIN 5 MG TAB PO ONE (00:30)
[2023-03-01] MEDS: SODIUM CHLORIDE 0.9% 1,000 ML IV SCH ×2 (03:18→09:13)
[2023-03-01 07:39] LABS: Basophils # (auto) 0 10 ^3/uL (0-0.2); Eosinophils # (auto) 0.1 10 ^3/uL (0-0.8); Hematocrit 30.1 % (36.0-46.0); Hemoglobin 9.1 g/dL (12.2-16.2); Mean Corpuscular Hgb Conc. 30.1 g/dL (32.0-36.0); Nucleated Red Blood Cells % 0.1 %
[2023-03-01 07:41] LABS: Basophils % (auto) 0.7 % (0.0-2.0); Eosinophils % (auto) 1.4 % (0.0-7.0); Lymphocytes # (auto) 1.1 10 ^3/uL (0.4-5.4); Lymphocytes % (auto) 15.8 % (10.0-50.0); Mean Corpuscular Hemoglobin 22.5 pg (28.0-32.0); Mean Corpuscular Volume 74.8 fL (80.0-100.0); Monocytes % (auto) 14.3 % (0.0-12.0); Neutrophils # (auto) 4.6 10 ^3/uL (1.6-8.6); Neutrophils % (auto) 67.8 % (37.0-80.0); Red Blood Cells 4.03 10^6/uL (4.0-5.20); White Blood Cell 6.7 10^3/uL (4.4-10.8)
[2023-03-01 07:48] LABS: Red Cell Distribution Width 20.2 % (11.8-14.3)
[2023-03-01 07:53] LABS: Alanine Aminotransferase 18 U/L (7-40); Albumin 3.9 g/dL (3.2-4.8); Alkaline Phosphatase 75 U/L (46-116); Anion Gap 6 (5-15); Aspartate Aminotransferase 20 U/L (13-40); BUN/Creatinine Ratio 12.4 (10.0-20.0); Bilirubin, Total 0.4 mg/dL (0.2-1.0); Blood Urea Nitrogen 15 mg/dL (9-23); Calcium 8.9 mg/dL (8.7-10.4); Carbon Dioxide 25 mmol/L (20-30); Chloride 109 mmol/L (98-107); Glucose 91 mg/dL (74-106); Potassium 4.1 mmol/L (3.5-5.1); Sodium 140 mmol/L (136-145); Total Protein 6.2 g/dL (5.7-8.2)
[2023-03-01] MEDS: cefTRIAXone 1GM/50ML D5W 50 ML IV SCH (09:08)
[2023-03-01] MEDS: ATORVASTATIN 20 MG TAB PO SCH (09:09)
[2023-03-01] MEDS: ENOXAPARIN SOD 30 MG/0.3 ML SYRINGE SC SCH (09:09)
[2023-03-01] MEDS: ASPirin-EC 81 mg tab PO SCH (09:10)
[2023-03-01] MEDS: CARVEDILOL 12.5 MG TAB PO SCH ×2 (09:10→21:16)
[2023-03-01] MEDS ORDERED: FUROSEMIDE 20 MG TAB PO SCH (10:00)
[2023-03-01] MEDS ORDERED: LOSARTAN POTASSIUM 50 MG TAB PO SCH (10:00)
[2023-03-01] MEDS ORDERED: FAMOTIDINE 20 MG TAB PO SCH (10:00)
[2023-03-01] MEDS ORDERED: LEVOTHYROXINE SODIUM 25 MCG TAB PO ONE (15:15)
[2023-03-01 16:52] LABS: COVID19 ANTIGEN SOFIA FIA NEGATIVE (NEGATIVE)
[2023-03-02] VITALS (8 sets, daily range): BP systolic 133–170; BP diastolic 50–64; PULSE 75–79; RESP 16–18; TEMP 97.9–98.6; O2SAT 91–98
[2023-03-02] MEDS: LEVOTHYROXINE SODIUM 25 MCG TAB PO SCH (06:09)
[2023-03-02] MEDS: SODIUM CHLORIDE 0.9% 1,000 ML IV SCH ×2 (06:10→21:13)
[2023-03-02 06:43] LABS: Basophils # (auto) 0.1 10 ^3/uL (0-0.2); Eosinophils # (auto) 0.1 10 ^3/uL (0-0.8); Monocytes # (auto) 0.7 10 ^3/uL (0-1.3); Nucleated Red Blood Cells % 0.1 %; White Blood Cell 4.9 10^3/uL (4.4-10.8)
[2023-03-02 06:45] LABS: Basophils % (auto) 1.2 % (0.0-2.0); Eosinophils % (auto) 1.6 % (0.0-7.0); Hematocrit 27.3 % (36.0-46.0); Hemoglobin 8.5 g/dL (12.2-16.2); Lymphocytes % (auto) 20.8 % (10.0-50.0); Mean Corpuscular Hemoglobin 23.4 pg (28.0-32.0); Mean Corpuscular Hgb Conc. 30.9 g/dL (32.0-36.0); Mean Corpuscular Volume 75.5 fL (80.0-100.0); Monocytes % (auto) 14.6 % (0.0-12.0); Neutrophils % (auto) 61.8 % (37.0-80.0); Red Blood Cells 3.62 10^6/uL (4.0-5.20)
[2023-03-02 06:50] LABS: Red Cell Distribution Width 20.1 % (11.8-14.3)
[2023-03-02 07:07] LABS: Anion Gap 5 (5-15); Carbon Dioxide 27 mmol/L (20-30); Chloride 109 mmol/L (98-107); Potassium 4.1 mmol/L (3.5-5.1); Sodium 141 mmol/L (136-145)
[2023-03-02 07:08] LABS: Calcium 8.5 mg/dL (8.7-10.4)
[2023-03-02 07:12] LABS: Glucose 78 mg/dL (74-106)
[2023-03-02 07:13] LABS: Blood Urea Nitrogen 15 mg/dL (9-23)
[2023-03-02] MEDS ORDERED: LEV25T PO (09:59)
[2023-03-02] MEDS: FAMOTIDINE 20 MG TAB PO SCH (11:25)
[2023-03-02] MEDS: ENOXAPARIN SOD 30 MG/0.3 ML SYRINGE SC SCH (11:25)
[2023-03-02] MEDS: CARVEDILOL 12.5 MG TAB PO SCH ×2 (11:26→21:12)
[2023-03-02] MEDS: ASPirin-EC 81 mg tab PO SCH (11:26)
[2023-03-02] MEDS: ATORVASTATIN 20 MG TAB PO SCH (11:26)
[2023-03-02] MEDS: cefTRIAXone 1GM/50ML D5W 50 ML IV SCH (11:28)
[2023-03-02] MEDS: LOSARTAN POTASSIUM 50 MG TAB PO SCH (11:28)
[2023-03-02 12:00] LABS: Free T4 (Free Thyroxine) 0.99 ng/dL (0.89-1.76)
[2023-03-02 12:02] LABS: Folate (Folic Acid) 6.87 ng/mL (>5.38)
[2023-03-02] MEDS ORDERED: HYDROcodone-ACET 5/325MG TAB PO ONE (22:45)
[2023-03-03 05:53] VITALS: BP 148/71; PULSE 66; RESP 16; O2SAT 99
[2023-03-03] MEDS: LEVOTHYROXINE SODIUM 25 MCG TAB PO SCH (06:05)
[2023-03-03 06:55] VITALS: O2SAT 96
[2023-03-03 07:06] LABS: RPR Non Reactive (Non Reactive)
[2023-03-03 08:00] VITALS: PULSE 75
[2023-03-03 08:15] LABS: Eosinophils # (auto) 0.1 10 ^3/uL (0-0.8); Mean Corpuscular Hemoglobin 22.7 pg (28.0-32.0); Monocytes # (auto) 0.8 10 ^3/uL (0-1.3); Monocytes % (auto) 11.7 % (0.0-12.0); Nucleated Red Blood Cells % 0.1 %
[2023-03-03 08:18] LABS: Basophils # (auto) 0 10 ^3/uL (0-0.2); Basophils % (auto) 0.7 % (0.0-2.0); Eosinophils % (auto) 2.1 % (0.0-7.0); Hematocrit 29.5 % (36.0-46.0); Lymphocytes # (auto) 1.1 10 ^3/uL (0.4-5.4); Lymphocytes % (auto) 16.3 % (10.0-50.0); Mean Corpuscular Hgb Conc. 30.3 g/dL (32.0-36.0); Mean Corpuscular Volume 74.9 fL (80.0-100.0); Neutrophils # (auto) 4.6 10 ^3/uL (1.6-8.6); Neutrophils % (auto) 69.2 % (37.0-80.0); Red Blood Cells 3.94 10^6/uL (4.0-5.20); Red Cell Distribution Width 20.1 % (11.8-14.3); White Blood Cell 6.7 10^3/uL (4.4-10.8)
[2023-03-03 08:29] LABS: Carbon Dioxide 29 mmol/L (20-30)
[2023-03-03 08:34] LABS: Glucose 86 mg/dL (74-106)
[2023-03-03 08:35] LABS: Blood Urea Nitrogen 13 mg/dL (9-23)
[2023-03-03 09:00] VITALS: BP 150/72; PULSE 79; RESP 16; TEMP 98.6; O2SAT 93
[2023-03-03 09:02] LABS: Anion Gap 3 (5-15); Chloride 108 mmol/L (98-107); Potassium 4.4 mmol/L (3.5-5.1); Sodium 140 mmol/L (136-145)
[2023-03-03] MEDS ORDERED: HYDROcodone-ACET 5/325MG TAB PO ONE (09:15)
[2023-03-03 09:28] VITALS: BP 148/56; PULSE 74; RESP 16; O2SAT 96
[2023-03-03] MEDS: cefTRIAXone 1GM/50ML D5W 50 ML IV SCH (09:52)
[2023-03-03] MEDS: FAMOTIDINE 20 MG TAB PO SCH (09:53)
[2023-03-03] MEDS: ASPirin-EC 81 mg tab PO SCH (09:53)
[2023-03-03] MEDS: ATORVASTATIN 20 MG TAB PO SCH (09:53)
[2023-03-03] MEDS: CARVEDILOL 12.5 MG TAB PO SCH (09:53)
[2023-03-03] MEDS: LOSARTAN POTASSIUM 50 MG TAB PO SCH (09:55)
[2023-03-03] MEDS ORDERED: ENOXAPARIN SOD 40 MG/0.4 ML SYRINGE SC SCH (10:00)
[2023-03-03] MEDS: SODIUM CHLORIDE 0.9% 1,000 ML IV SCH (12:30)
[2023-03-03 13:00] VITALS: BP 124/50; PULSE 62; RESP 16; TEMP 98.4; O2SAT 90
== END 2023-03-03 16:40 | disposition home health service (06) | DRG 92 ==
LOC: ER 07:38 → TELE 13:06 → TELE-CENTR 03-01 02:04
PROVIDERS: ADMIT Internal Medicine Pulmonary Disease; ATTEND Internal Medicine Pulmonary Disease
DX: G92.9 Unspecified toxic encephalopathy (principal); D62 Acute posthemorrhagic anemia; N39.0 Urinary tract infection, site not specified; N17.9 Acute kidney failure, unspecified; I48.20 Chronic atrial fibrillation, unspecified; I13.0 Hypertensive heart and chronic kidney disease with heart failure and stage 1 through stage 4 chronic kidney disease, or unspecified chronic kidney disease; F03.94 Unspecified dementia, unspecified severity, with anxiety; Z16.12 Extended spectrum beta lactamase (ESBL) resistance; I50.20 Unspecified systolic (congestive) heart failure; I82.611 Acute embolism and thrombosis of superficial veins of right upper extremity; F17.200 Nicotine dependence, unspecified, uncomplicated; B96.20 Unspecified Escherichia coli [E. coli] as the cause of diseases classified elsewhere; D63.8 Anemia in other chronic diseases classified elsewhere; N18.32 Chronic kidney disease, stage 3b; F10.10 Alcohol abuse, uncomplicated; J44.9 Chronic obstructive pulmonary disease, unspecified; R44.1 Visual hallucinations; I34.0 Nonrheumatic mitral (valve) insufficiency; D69.6 Thrombocytopenia, unspecified; E03.9 Hypothyroidism, unspecified; R19.7 Diarrhea, unspecified; E78.5 Hyperlipidemia, unspecified; I25.10 Atherosclerotic heart disease of native coronary artery without angina pectoris; I25.2 Old myocardial infarction; Z79.899 Other long term (current) drug therapy; Z80.3 Family history of malignant neoplasm of breast; Z86.73 Personal history of transient ischemic attack (TIA), and cerebral infarction without residual deficits; Z88.2 Allergy status to sulfonamides; Z90.49 Acquired absence of other specified parts of digestive tract; Z95.810 Presence of automatic (implantable) cardiac defibrillator; Z98.61 Coronary angioplasty status; Z87.440 Personal history of urinary (tract) infections
CPT/HCPCS: 36415; 70450; 71045; 74176; 80048; 80053; 80307; 80320; 81001; 82140; 82270; 82570; 82607; 82746; 82962; 83735; 84100; 84300; 84439; 84443; 84484; 85025; 86592; 87040; 87081; 87086; 87426; 87493; 93005; 93971; 94640; 95819; 97110; 97116; 97163; 97530; G0378; J0696

== ENCOUNTER 2023-03-24 18:01 | Emergency (ER) | payer OTHER, MEDICAID ==
[~2023-03-24] VITALS: Ht 177.8 cm; Wt 81.8 kg
[~2023-03-24 18:01] MED LIST changes: +LEV25T PO
[2023-03-24 19:38] LABS: Basophils # (auto) 0.1 10 ^3/uL (0-0.2); Eosinophils # (auto) 0.1 10 ^3/uL (0-0.8); Eosinophils % (auto) 1.6 % (0.0-7.0); Monocytes # (auto) 0.6 10 ^3/uL (0-1.3); Neutrophils # (auto) 3.4 10 ^3/uL (1.6-8.6); Nucleated Red Blood Cells % 0.2 %; White Blood Cell 6.3 10^3/uL (4.4-10.8)
[2023-03-24 19:39] LABS: Basophils % (auto) 0.9 % (0.0-2.0); Hematocrit 33.3 % (36.0-46.0); Hemoglobin 9.9 g/dL (12.2-16.2); Lymphocytes # (auto) 2.2 10 ^3/uL (0.4-5.4); Lymphocytes % (auto) 34.6 % (10.0-50.0); Mean Corpuscular Hemoglobin 22.3 pg (28.0-32.0); Mean Corpuscular Hgb Conc. 29.9 g/dL (32.0-36.0); Mean Corpuscular Volume 74.7 fL (80.0-100.0); Monocytes % (auto) 9.6 % (0.0-12.0); Neutrophils % (auto) 53.3 % (37.0-80.0); Red Blood Cells 4.46 10^6/uL (4.0-5.20)
[2023-03-24 19:40] LABS: Red Cell Distribution Width 20.5 % (11.8-14.3)
[2023-03-24 19:58] LABS: Alanine Aminotransferase 14 U/L (7-40); Albumin 4.3 g/dL (3.2-4.8); Alkaline Phosphatase 69 U/L (46-116); Anion Gap 10 (5-15); Aspartate Aminotransferase 22 U/L (13-40); BUN/Creatinine Ratio 13.2 (10.0-20.0); Blood Alcohol 157.2 mg/dL (<10); Blood Urea Nitrogen 16 mg/dL (9-23); Carbon Dioxide 23 mmol/L (20-30); Chloride 105 mmol/L (98-107); Glucose 93 mg/dL (74-106); Potassium 3.5 mmol/L (3.5-5.1); Sodium 138 mmol/L (136-145)
[2023-03-24 19:59] LABS: Bilirubin, Total 0.5 mg/dL (0.2-1.0); Total Protein 6.9 g/dL (5.7-8.2)
[2023-03-24 20:52] LABS: Urine Bacteria NONE SEEN /hpf (None Seen); Urine Blood 1+ /uL (Negative); Urine Clarity Clear (Clear); Urine Color Colorless (Yellow); Urine Protein, UAD Negative (Negative); Urine Specific Gravity 1.007 (1.001-1.035); Urine Urobilinogen Normal (Negative); Urine WBC 4 /hpf (0 - 5); Urine pH 5.5 (5.0-8.0)
[2023-03-24 20:58] LABS: Amphetamine Screen, Urine Neg (NEGATIVE); Barbiturate Scree,Urine Neg (NEGATIVE)
[2023-03-24 20:59] LABS: Benzodiazephine Screen, Urine Neg (NEGATIVE); Cannabinoid Screen, Urine Pos (NEGATIVE); Cocaine Screen, Urine Neg (NEGATIVE); Opiate Scree,Urine Neg (NEGATIVE); Phencyclidine Screen, Urine Neg (NEGATIVE)
[2023-03-25] MEDS ORDERED: MORPHINE SULFATE 4 MG/ML SYR/VIAL IV ONE
[2023-03-25] MEDS ORDERED: ONDANSETRON HCL 4 MG/2 ML VIAL IV ONE
[2023-03-25 00:20] VITALS: PULSE 75; RESP 17; O2SAT 98
[2023-03-25] MEDS ORDERED: HYDROmorphone HCL 2 MG/ML VL/or syr IV ONE (01:45)
[2023-03-25] MEDS ORDERED: CEPH250C PO (02:00)
[2023-03-25] MEDS ORDERED: cefTRIAXone SOD 1,000 MG VL IM ONE (03:00)
[2023-03-25] MEDS ORDERED: cefTRIAXone 1GM/50ML D5W 50 ML IV ONE (03:15)
[2023-03-25 05:03] VITALS: BP 158/29; PULSE 75; RESP 18; O2SAT 96
== END 2023-03-25 06:00 | disposition home or self-care (01) ==
LOC: EDBD 18:01 → ER 18:01
DX: N39.0 Urinary tract infection, site not specified (principal); D64.9 Anemia, unspecified; R11.2 Nausea with vomiting, unspecified; R10.31 Right lower quadrant pain; F10.129 Alcohol abuse with intoxication, unspecified; E78.5 Hyperlipidemia, unspecified; F12.90 Cannabis use, unspecified, uncomplicated; J44.9 Chronic obstructive pulmonary disease, unspecified; I11.0 Hypertensive heart disease with heart failure; I50.89 Other heart failure; Z88.2 Allergy status to sulfonamides; Z88.8 Allergy status to other drugs, medicaments and biological substances; Z79.84 Long term (current) use of oral hypoglycemic drugs; Z79.82 Long term (current) use of aspirin; Z79.899 Other long term (current) drug therapy; Z86.73 Personal history of transient ischemic attack (TIA), and cerebral infarction without residual deficits; Z90.49 Acquired absence of other specified parts of digestive tract; Z90.89 Acquired absence of other organs; Z98.890 Other specified postprocedural states
CPT/HCPCS: 36415; 74176; 80053; 80307; 80320; 81001; 85025; 96365; 96375; 99285; J0696; J1170; J2270; J2405

== ENCOUNTER 2023-04-11 17:52 | Emergency (ER) | payer OTHER, MEDICAID ==
[~2023-04-11] VITALS: Ht 160 cm; Wt 81.8 kg
[~2023-04-11 17:52] MED LIST changes: +CEPH250C PO
[2023-04-11 19:02] LABS: Basophils # (auto) 0.1 10 ^3/uL (0-0.2); Eosinophils # (auto) 0.2 10 ^3/uL (0-0.8); Monocytes # (auto) 0.6 10 ^3/uL (0-1.3); White Blood Cell 6.1 10^3/uL (4.4-10.8)
[2023-04-11 19:04] LABS: Basophils % (auto) 1.4 % (0.0-2.0); Eosinophils % (auto) 3.9 % (0.0-7.0); Hematocrit 32.5 % (36.0-46.0); Hemoglobin 9.9 g/dL (12.2-16.2); Lymphocytes % (auto) 32.4 % (10.0-50.0); Mean Corpuscular Hemoglobin 22.9 pg (28.0-32.0); Mean Corpuscular Hgb Conc. 30.4 g/dL (32.0-36.0); Mean Corpuscular Volume 75.3 fL (80.0-100.0); Monocytes % (auto) 9.7 % (0.0-12.0); Neutrophils # (auto) 3.2 10 ^3/uL (1.6-8.6); Neutrophils % (auto) 52.6 % (37.0-80.0); Nucleated Red Blood Cells % 0.2 %; Red Blood Cells 4.31 10^6/uL (4.0-5.20); Red Cell Distribution Width 21.2 % (11.8-14.3)
[2023-04-11 19:16] LABS: Alanine Aminotransferase 14 U/L (7-40); Albumin 4.9 g/dL (3.2-4.8); Alkaline Phosphatase 84 U/L (46-116); Anion Gap 10 (5-15); Aspartate Aminotransferase 21 U/L (13-40); BUN/Creatinine Ratio 14.3 (10.0-20.0); Bilirubin, Total 0.4 mg/dL (0.2-1.0); Blood Urea Nitrogen 18 mg/dL (9-23); Calcium 9.7 mg/dL (8.7-10.4); Carbon Dioxide 25 mmol/L (20-30); Chloride 106 mmol/L (98-107); Glucose 103 mg/dL (74-106); Potassium 4.3 mmol/L (3.5-5.1); Sodium 141 mmol/L (136-145)
[2023-04-11 19:17] LABS: Total Protein 7.4 g/dL (5.7-8.2)
[2023-04-11 19:20] VITALS: PULSE 75; RESP 28; TEMP 97.8; O2SAT 93
[2023-04-11] MEDS ORDERED: MORPHINE SULFATE 4 MG/ML SYR/VIAL IV ONE (19:30)
[2023-04-11] MEDS ORDERED: MORPHINE SULFATE INJ 2 MG/ml SYRG IM ONE (20:00)
[2023-04-11 20:36] VITALS: BP 175/60; PULSE 75; RESP 16
== END 2023-04-11 20:37 | disposition home or self-care (01) ==
LOC: ER 17:52 → EDBD 17:52 → ER 20:37
DX: R07.89 Other chest pain (principal); I11.0 Hypertensive heart disease with heart failure; I50.9 Heart failure, unspecified; I48.91 Unspecified atrial fibrillation; I25.10 Atherosclerotic heart disease of native coronary artery without angina pectoris; J44.9 Chronic obstructive pulmonary disease, unspecified; E78.5 Hyperlipidemia, unspecified; F15.90 Other stimulant use, unspecified, uncomplicated; Z85.9 Personal history of malignant neoplasm, unspecified; Z86.73 Personal history of transient ischemic attack (TIA), and cerebral infarction without residual deficits; Z98.890 Other specified postprocedural states; Z88.8 Allergy status to other drugs, medicaments and biological substances; Z79.82 Long term (current) use of aspirin; Z79.899 Other long term (current) drug therapy
CPT/HCPCS: 36415; 71045; 80053; 83880; 84484; 85025; 93005; 96372; 99285; J2270

== ENCOUNTER 2023-05-08 08:31 | Inpatient (IN) | payer OTHER, MEDICAID ==
[~2023-05-08] VITALS: Ht 154.9 cm; Wt 70.2 kg
[2023-05-08] MEDS ORDERED: ALBUTEROL MEDNEB 2.5 mg/3ml NEB NEB ONE (09:15)
[2023-05-08] MEDS ORDERED: methylPREDNISolone SOD SUCC 125 MG/2 ML VL IV ONE (09:15)
[2023-05-08] MEDS ORDERED: IPRATROPIUM BROM 0.5 MG/2.5ML INH SOL NEB ONE (09:15)
[2023-05-08 09:33] LABS: Basophils # (auto) 0 10 ^3/uL (0-0.2); Eosinophils # (auto) 0.1 10 ^3/uL (0-0.8); Lymphocytes # (auto) 0.9 10 ^3/uL (0.4-5.4); Lymphocytes % (auto) 11.9 % (10.0-50.0); Monocytes # (auto) 1.2 10 ^3/uL (0-1.3); Neutrophils # (auto) 5.6 10 ^3/uL (1.6-8.6); White Blood Cell 7.9 10^3/uL (4.4-10.8)
[2023-05-08 09:37] LABS: Basophils % (auto) 0.6 % (0.0-2.0); Eosinophils % (auto) 1.1 % (0.0-7.0); Hematocrit 26.5 % (36.0-46.0); Hemoglobin 8.1 g/dL (12.2-16.2); Mean Corpuscular Hemoglobin 23.4 pg (28.0-32.0); Mean Corpuscular Hgb Conc. 30.8 g/dL (32.0-36.0); Mean Corpuscular Volume 76.1 fL (80.0-100.0); Monocytes % (auto) 15.1 % (0.0-12.0); Neutrophils % (auto) 71.3 % (37.0-80.0); Nucleated Red Blood Cells % 0.3 %; Red Blood Cells 3.48 10^6/uL (4.0-5.20)
[2023-05-08 09:39] VITALS: O2SAT 100
[2023-05-08 09:44] LABS: Red Cell Distribution Width 21.4 % (11.8-14.3)
[2023-05-08 09:55] LABS: Alanine Aminotransferase 66 U/L (7-40); Albumin 4.4 g/dL (3.2-4.8); Alkaline Phosphatase 82 U/L (46-116); Anion Gap 7 (5-15); Aspartate Aminotransferase 76 U/L (13-40); BUN/Creatinine Ratio 35.2 (10.0-20.0); Blood Urea Nitrogen 45 mg/dL (9-23); Carbon Dioxide 25 mmol/L (20-30); Chloride 101 mmol/L (98-107); Glucose 102 mg/dL (74-106); Potassium 4.3 mmol/L (3.5-5.1); Sodium 133 mmol/L (136-145)
[2023-05-08 09:56] LABS: Bilirubin, Total 0.5 mg/dL (0.2-1.0); Total Protein 6.8 g/dL (5.7-8.2)
[2023-05-08] MEDS ORDERED: FUROSEMIDE 40 MG/4 ML VIAL IV ONE (10:00)
[2023-05-08 12:12] LABS: Platelet Estimate Adequate
[2023-05-08 12:13] LABS: Anisocytosis Moderate; Hypochromia Moderate
[2023-05-08 12:14] LABS: Ovalocytes FEW
[2023-05-08] MEDS ORDERED: DOCUSATE SOD 100 MG CAP PO PRN (12:30)
[2023-05-08] MEDS: methylPREDNISolone SOD SUCC 125 MG/2 ML VL IV SCH ×2 (14:18→21:40)
[2023-05-08] MEDS: MORPHINE SULFATE INJ 2 MG/ml SYRG IV PRN (14:51)
[2023-05-08] MEDS: ONDANSETRON HCL 4 MG/2 ML VIAL IV PRN (14:51)
[2023-05-08 15:55] VITALS: BP 140/70; PULSE 80; RESP 20; TEMP 98.1; O2SAT 98
[2023-05-08] MEDS: FUROSEMIDE 20 MG/2 ML VIAL IV SCH (17:01)
[2023-05-08 18:30] VITALS: PULSE 74; RESP 20; O2SAT 98
[2023-05-08] MEDS: IPRATROPIUM BROM 0.5 MG/2.5ML INH SOL NEB SCH (18:39)
[2023-05-08 18:40] VITALS: PULSE 75; RESP 20; O2SAT 100
[2023-05-08 18:40] LABS: Rapid Influenza A Negative (Negative)
[2023-05-08] MEDS: ALBUTEROL MEDNEB 2.5 mg/3ml NEB NEB SCH (18:40)
[2023-05-08 18:41] LABS: COVID19 ANTIGEN SOFIA FIA NEGATIVE (NEGATIVE); Rapid Influenza B Negative (Negative)
[2023-05-08 20:30] VITALS: PULSE 77; RESP 13; O2SAT 100
[2023-05-08] MEDS: CARVEDILOL 12.5 MG TAB PO SCH (21:41)
[2023-05-08] MEDS: OMEPRAZOLE 40MG/20ML ORAL SUSP PO SCH (21:59)
[2023-05-08] MEDS ORDERED: MELATONIN 5 MG TAB PO ONE (22:00)
[2023-05-08 22:20] VITALS: BP 137/77; PULSE 75; O2SAT 99
[2023-05-08 23:17] LABS: Base Excess 0.5 mmol/L (-2.0-2.0)
[2023-05-09] VITALS (13 sets, daily range): BP systolic 110–146; BP diastolic 50–69; PULSE 74–102; RESP 18–19; TEMP 97.2–98.1; O2SAT 84–99
[2023-05-09] MEDS ORDERED: IPRATROPIUM BROM 0.5 MG/2.5ML INH SOL NEB ONE (00:30)
[2023-05-09] MEDS ORDERED: ALBUTEROL MEDNEB 2.5 mg/3ml NEB NEB ONE (00:30)
[2023-05-09] MEDS: ALBUTEROL MEDNEB 2.5 mg/3ml NEB NEB SCH ×4 (00:46→18:00)
[2023-05-09] MEDS: IPRATROPIUM BROM 0.5 MG/2.5ML INH SOL NEB SCH ×4 (00:46→18:00)
[2023-05-09] MEDS: methylPREDNISolone SOD SUCC 125 MG/2 ML VL IV SCH ×3 (06:18→22:05)
[2023-05-09] MEDS: LEVOTHYROXINE SODIUM 25 MCG TAB PO SCH (06:21)
[2023-05-09] MEDS: FUROSEMIDE 20 MG/2 ML VIAL IV SCH ×2 (06:21→17:33)
[2023-05-09 07:42] LABS: Basophils # (auto) 0 10 ^3/uL (0-0.2); Basophils % (auto) 0.1 % (0.0-2.0); Eosinophils # (auto) 0 10 ^3/uL (0-0.8); Eosinophils % (auto) 0.1 % (0.0-7.0); Lymphocytes # (auto) 0.5 10 ^3/uL (0.4-5.4); Monocytes # (auto) 0.4 10 ^3/uL (0-1.3)
[2023-05-09 07:46] LABS: Lymphocytes % (auto) 7.3 % (10.0-50.0); Mean Corpuscular Hgb Conc. 30.9 g/dL (32.0-36.0); Mean Corpuscular Volume 77.5 fL (80.0-100.0); Monocytes % (auto) 5.4 % (0.0-12.0); Neutrophils # (auto) 6.5 10 ^3/uL (1.6-8.6); Neutrophils % (auto) 87.1 % (37.0-80.0); Nucleated Red Blood Cells % 0.3 %; Red Blood Cells 3.35 10^6/uL (4.0-5.20); White Blood Cell 7.5 10^3/uL (4.4-10.8)
[2023-05-09 07:51] LABS: Red Cell Distribution Width 21.6 % (11.8-14.3)
[2023-05-09 07:53] LABS: Alanine Aminotransferase 62 U/L (7-40); Alkaline Phosphatase 79 U/L (46-116); Anion Gap 7 (5-15); Aspartate Aminotransferase 54 U/L (13-40); BUN/Creatinine Ratio 25.6 (10.0-20.0); Calcium 9.1 mg/dL (8.5-10.1); Carbon Dioxide 26 mmol/L (20-30); Chloride 103 mmol/L (98-107); Glucose 177 mg/dL (74-106); Potassium 4.6 mmol/L (3.5-5.1); Sodium 136 mmol/L (136-145)
[2023-05-09 07:54] LABS: Albumin 4.3 g/dL (3.2-4.8); Bilirubin, Total 0.4 mg/dL (0.2-1.0); Total Protein 6.6 g/dL (5.7-8.2)
[2023-05-09 08:00] LABS: Blood Urea Nitrogen 30 mg/dL (9-23)
[2023-05-09] MEDS: MORPHINE SULFATE INJ 2 MG/ml SYRG IV PRN ×2 (08:37→16:31)
[2023-05-09] MEDS: ATORVASTATIN 20 MG TAB PO SCH (08:37)
[2023-05-09] MEDS: LOSARTAN POTASSIUM 50 MG TAB PO SCH (08:37)
[2023-05-09] MEDS: CARVEDILOL 12.5 MG TAB PO SCH ×2 (08:38→22:05)
[2023-05-09] MEDS: ASPirin-EC 81 mg tab PO SCH (08:38)
[2023-05-09] MEDS: BUPROPION HCL 150 MG PO SCH (08:47)
[2023-05-09] MEDS: CITALOPRAM HYDROBR 20 MG TAB PO SCH (09:52)
[2023-05-09] MEDS: OMEPRAZOLE 40MG/20ML ORAL SUSP PO SCH ×2 (09:57→22:06)
[2023-05-09 18:10] LABS: Urine Bacteria FEW /hpf (None Seen); Urine Blood Negative /uL (Negative); Urine Clarity Clear (Clear); Urine Color Yellow (Yellow); Urine Hyaline Cast FEW /lpf (0 - 2); Urine Protein, UAD Negative (Negative); Urine Specific Gravity 1.017 (1.001-1.035); Urine Urobilinogen Normal (Negative); Urine WBC 1 /hpf (0 - 5)
[2023-05-09] MEDS ORDERED: IOHEXOL 350 MG/ML 100ML IJ ONE (18:10)
[2023-05-09] MEDS: ENOXAPARIN SOD 80 MG/0.8ML SYRINGE SC SCH (22:06)
[2023-05-09] MEDS: LORazepam 2MG/ML-1ML VIAL IV PRN (22:20)
[2023-05-09] MEDS: BUDESONIDE (INHALATION) 0.5 MG/2 ML NEB NEB SCH (22:34)
[2023-05-10] VITALS (14 sets, daily range): BP systolic 113–157; BP diastolic 53–71; PULSE 73–79; RESP 16–24; TEMP 98.3–98.6; O2SAT 91–99
[2023-05-10] MEDS: ALBUTEROL MEDNEB 2.5 mg/3ml NEB NEB SCH ×4 (00:21→18:00)
[2023-05-10] MEDS: IPRATROPIUM BROM 0.5 MG/2.5ML INH SOL NEB SCH ×4 (00:21→18:00)
[2023-05-10] MEDS: LEVOTHYROXINE SODIUM 25 MCG TAB PO SCH (05:44)
[2023-05-10] MEDS: methylPREDNISolone SOD SUCC 125 MG/2 ML VL IV SCH ×3 (05:46→22:15)
[2023-05-10] MEDS: FUROSEMIDE 20 MG/2 ML VIAL IV SCH ×2 (05:46→17:22)
[2023-05-10] MEDS: BUDESONIDE (INHALATION) 0.5 MG/2 ML NEB NEB SCH ×2 (06:32→18:32)
[2023-05-10] MEDS: ASPirin-EC 81 mg tab PO SCH (09:41)
[2023-05-10] MEDS: ENOXAPARIN SOD 80 MG/0.8ML SYRINGE SC SCH ×2 (09:41→22:16)
[2023-05-10] MEDS: OMEPRAZOLE 40MG/20ML ORAL SUSP PO SCH (09:41)
[2023-05-10] MEDS: MULTIPLE VITAMIN TAB PO SCH (09:41)
[2023-05-10] MEDS: ATORVASTATIN 20 MG TAB PO SCH (09:42)
[2023-05-10] MEDS: FOLIC ACID 1 MG TAB PO SCH (09:42)
[2023-05-10] MEDS: CITALOPRAM HYDROBR 20 MG TAB PO SCH (09:42)
[2023-05-10] MEDS: LOSARTAN POTASSIUM 50 MG TAB PO SCH (09:42)
[2023-05-10] MEDS: CARVEDILOL 12.5 MG TAB PO SCH ×2 (09:43→22:16)
[2023-05-10] MEDS: MORPHINE SULFATE INJ 2 MG/ml SYRG IV PRN ×2 (09:54→15:47)
[2023-05-10] MEDS: BUPROPION HCL 150 MG PO SCH (10:00)
[2023-05-10] MEDS: LORazepam 2MG/ML-1ML VIAL IV PRN (18:53)
[2023-05-10 21:47] LABS: Base Excess 5.1 mmol/L (-2.0-2.0)
[2023-05-10] MEDS: PANTOPRAZOLE 40 MG TAB PO SCH (22:16)
[2023-05-11] VITALS (13 sets, daily range): BP systolic 133–179; BP diastolic 48–84; PULSE 74–88; RESP 16–22; TEMP 97.5–98.7; O2SAT 92–99
[2023-05-11 06:26] LABS: Basophils # (auto) 0 10 ^3/uL (0-0.2); Basophils % (auto) 0.1 % (0.0-2.0); Eosinophils # (auto) 0 10 ^3/uL (0-0.8); Hemoglobin 7.9 g/dL (12.2-16.2); Lymphocytes # (auto) 0.5 10 ^3/uL (0.4-5.4); Monocytes # (auto) 0.4 10 ^3/uL (0-1.3)
[2023-05-11 06:32] LABS: Hematocrit 25.9 % (36.0-46.0); Lymphocytes % (auto) 5.9 % (10.0-50.0); Mean Corpuscular Hemoglobin 23.1 pg (28.0-32.0); Mean Corpuscular Hgb Conc. 30.5 g/dL (32.0-36.0); Mean Corpuscular Volume 75.8 fL (80.0-100.0); Monocytes % (auto) 4.6 % (0.0-12.0); Neutrophils # (auto) 7.6 10 ^3/uL (1.6-8.6); Neutrophils % (auto) 89.4 % (37.0-80.0); Nucleated Red Blood Cells % 0.5 %; Red Blood Cells 3.41 10^6/uL (4.0-5.20); White Blood Cell 8.5 10^3/uL (4.4-10.8)
[2023-05-11 06:39] LABS: Chloride 104 mmol/L (98-107); Potassium 4.1 mmol/L (3.5-5.1); Sodium 141 mmol/L (136-145)
[2023-05-11 06:40] LABS: Anion Gap 6 (5-15); Calcium 9.1 mg/dL (8.5-10.1); Carbon Dioxide 31 mmol/L (20-30)
[2023-05-11] MEDS: FUROSEMIDE 20 MG/2 ML VIAL IV SCH ×2 (06:40→17:16)
[2023-05-11] MEDS: LEVOTHYROXINE SODIUM 25 MCG TAB PO SCH (06:40)
[2023-05-11 06:45] LABS: BUN/Creatinine Ratio 28.5 (10.0-20.0); Blood Urea Nitrogen 35 mg/dL (9-23); Glucose 160 mg/dL (74-106)
[2023-05-11 06:49] LABS: Red Cell Distribution Width 21.7 % (11.8-14.3)
[2023-05-11] MEDS: IPRATROPIUM BROM 0.5 MG/2.5ML INH SOL NEB SCH ×4 (07:19→19:00)
[2023-05-11] MEDS: ALBUTEROL MEDNEB 2.5 mg/3ml NEB NEB SCH ×4 (07:19→19:00)
[2023-05-11] MEDS: ONDANSETRON HCL 4 MG/2 ML VIAL IV PRN (09:40)
[2023-05-11] MEDS: methylPREDNISolone SOD SUCC 125 MG/2 ML VL IV SCH ×2 (09:40→22:34)
[2023-05-11] MEDS: LORazepam 2MG/ML-1ML VIAL IV PRN ×2 (09:41→22:36)
[2023-05-11] MEDS: ATORVASTATIN 20 MG TAB PO SCH (09:41)
[2023-05-11] MEDS: ENOXAPARIN SOD 80 MG/0.8ML SYRINGE SC SCH ×2 (09:41→22:35)
[2023-05-11] MEDS: ASPirin-EC 81 mg tab PO SCH (09:41)
[2023-05-11] MEDS: MULTIPLE VITAMIN TAB PO SCH (09:42)
[2023-05-11] MEDS: CARVEDILOL 12.5 MG TAB PO SCH ×2 (09:42→22:34)
[2023-05-11] MEDS: CITALOPRAM HYDROBR 20 MG TAB PO SCH (09:42)
[2023-05-11] MEDS: LOSARTAN POTASSIUM 50 MG TAB PO SCH (09:42)
[2023-05-11] MEDS: PANTOPRAZOLE 40 MG TAB PO SCH ×2 (09:42→22:33)
[2023-05-11] MEDS: FOLIC ACID 1 MG TAB PO SCH (09:43)
[2023-05-11] MEDS: BUPROPION HCL 150 MG PO SCH (10:00)
[2023-05-11] MEDS: BUDESONIDE (INHALATION) 0.5 MG/2 ML NEB NEB SCH ×2 (11:11→19:00)
[2023-05-11] MEDS ORDERED: RAMIPRIL 2.5 MG CAP PO SCH (12:45)
[2023-05-11] MEDS: hydrALAZINE HCL 20 MG/ML VL IV PRN (13:52)
[2023-05-11] MEDS: SODIUM CHLORIDE 0.9% 1,000 ML IV SCH (14:30)
[2023-05-11] MEDS: MORPHINE SULFATE INJ 2 MG/ml SYRG IV PRN (16:19)
[2023-05-12] VITALS (13 sets, daily range): BP systolic 108–163; BP diastolic 59–84; PULSE 73–78; RESP 16–18; TEMP 36.7; O2SAT 95–100
[2023-05-12] MEDS: IPRATROPIUM BROM 0.5 MG/2.5ML INH SOL NEB SCH ×3 (00:16→12:00)
[2023-05-12] MEDS: ALBUTEROL MEDNEB 2.5 mg/3ml NEB NEB SCH ×3 (00:16→12:00)
[2023-05-12] MEDS: MORPHINE SULFATE INJ 2 MG/ml SYRG IV PRN ×3 (02:21→10:22)
[2023-05-12] MEDS: hydrALAZINE HCL 20 MG/ML VL IV PRN (04:14)
[2023-05-12] MEDS: SODIUM CHLORIDE 0.9% 1,000 ML IV SCH (06:19)
[2023-05-12] MEDS: FUROSEMIDE 20 MG/2 ML VIAL IV SCH (06:19)
[2023-05-12] MEDS: LEVOTHYROXINE SODIUM 25 MCG TAB PO SCH (06:20)
[2023-05-12] MEDS: BUDESONIDE (INHALATION) 0.5 MG/2 ML NEB NEB SCH (07:17)
[2023-05-12] MEDS: ENOXAPARIN SOD 80 MG/0.8ML SYRINGE SC SCH (09:38)
[2023-05-12] MEDS: methylPREDNISolone SOD SUCC 125 MG/2 ML VL IV SCH (09:38)
[2023-05-12] MEDS: PANTOPRAZOLE 40 MG TAB PO SCH (09:39)
[2023-05-12] MEDS: CITALOPRAM HYDROBR 20 MG TAB PO SCH (09:39)
[2023-05-12] MEDS: ATORVASTATIN 20 MG TAB PO SCH (09:40)
[2023-05-12] MEDS: FOLIC ACID 1 MG TAB PO SCH (09:40)
[2023-05-12] MEDS: LOSARTAN POTASSIUM 50 MG TAB PO SCH (09:40)
[2023-05-12] MEDS: ASPirin-EC 81 mg tab PO SCH (09:41)
[2023-05-12] MEDS: CARVEDILOL 12.5 MG TAB PO SCH (09:41)
[2023-05-12] MEDS: BUPROPION HCL 150 MG PO SCH (09:42)
[2023-05-12] MEDS: MULTIPLE VITAMIN TAB PO SCH (10:18)
== END 2023-05-12 17:30 | disposition home health service (06) | DRG 291 ==
LOC: ER 08:31 → TELE 12:23 → TELE-WESTW 05-09 08:11
PROVIDERS: ADMIT Nurse Practitioner Family; ATTEND Nurse Practitioner Acute Care
DX: I11.0 Hypertensive heart disease with heart failure (principal); I50.23 Acute on chronic systolic (congestive) heart failure; J96.21 Acute and chronic respiratory failure with hypoxia; J44.1 Chronic obstructive pulmonary disease with (acute) exacerbation; D62 Acute posthemorrhagic anemia; I48.20 Chronic atrial fibrillation, unspecified; F03.94 Unspecified dementia, unspecified severity, with anxiety; G47.30 Sleep apnea, unspecified; Z20.822 Contact with and (suspected) exposure to COVID-19; I25.10 Atherosclerotic heart disease of native coronary artery without angina pectoris; E78.5 Hyperlipidemia, unspecified; E03.9 Hypothyroidism, unspecified; C55 Malignant neoplasm of uterus, part unspecified; F10.20 Alcohol dependence, uncomplicated; I25.2 Old myocardial infarction; Z98.61 Coronary angioplasty status; Z86.73 Personal history of transient ischemic attack (TIA), and cerebral infarction without residual deficits; Z88.2 Allergy status to sulfonamides; Z88.8 Allergy status to other drugs, medicaments and biological substances; Z80.3 Family history of malignant neoplasm of breast; Z72.0 Tobacco use
CPT/HCPCS: 36415; 36600; 71045; 71275; 74177; 80048; 80053; 81001; 82140; 82805; 83880; 85025; 85379; 86304; 86850; 86900; 86901; 87426; 87804; 93005; 94640; 97110; 97116; 97163; 97530; 99291; G0378; J2405

== ENCOUNTER 2023-11-20 11:53 | Inpatient (IN) | payer OTHER, MEDICAID ==
[~2023-11-20] VITALS: Ht 149.9 cm; Wt 75.2 kg
[~2023-11-20 11:53] MED LIST changes: -CEPH250C PO; -LEVO500T91 PO; +LOSA-534 PO; -LOSA50TA46 PO
[2023-11-20 14:02] LABS: Basophils # (auto) 0.1 10 ^3/uL (0-0.2); Eosinophils # (auto) 0.1 10 ^3/uL (0-0.8); Lymphocytes # (auto) 2.4 10 ^3/uL (0.4-5.4); Mean Corpuscular Volume 80.7 fL (80.0-100.0); Monocytes # (auto) 0.8 10 ^3/uL (0-1.3)
[2023-11-20 14:04] LABS: Eosinophils % (auto) 1.5 % (0.0-7.0); Hematocrit 39.2 % (36.0-46.0); Hemoglobin 12.6 g/dL (12.2-16.2); Lymphocytes % (auto) 24.3 % (10.0-50.0); Mean Corpuscular Hgb Conc. 32.2 g/dL (32.0-36.0); Monocytes % (auto) 8.1 % (0.0-12.0); Neutrophils # (auto) 6.4 10 ^3/uL (1.6-8.6); Neutrophils % (auto) 65.1 % (37.0-80.0); Red Blood Cells 4.85 10^6/uL (4.0-5.20); White Blood Cell 9.8 10^3/uL (4.4-10.8)
[2023-11-20 14:06] LABS: Red Cell Distribution Width 20.6 % (11.8-14.3)
[2023-11-20 15:28] LABS: Chloride 109 mmol/L (98-107); Potassium 4.1 mmol/L (3.5-5.1); Sodium 139 mmol/L (136-145)
[2023-11-20 15:29] LABS: Anion Gap 9 (5-15); Calcium 10.2 mg/dL (8.5-10.1); Carbon Dioxide 21 mmol/L (20-30)
[2023-11-20 15:34] LABS: BUN/Creatinine Ratio 19.2 (10.0-20.0); Blood Urea Nitrogen 20 mg/dL (9-23); Glucose 100 mg/dL (74-106)
[2023-11-20] MEDS ORDERED: MORPHINE SULFATE INJ 2 MG/ml SYRG IV PRN (16:15)
[2023-11-20] MEDS ORDERED: NITROGLYCERIN 0.4 MG SL TAB SL PRN (16:15)
[2023-11-20 16:36] LABS: Magnesium 2.1 mg/dL (1.6-2.6)
[2023-11-20 16:44] LABS: INR 1.03 (0.9-1.15); Prothrombin Time 10.9 sec (9.3-11.8)
[2023-11-20 18:30] VITALS: BP 185/74; PULSE 79; RESP 18; TEMP 98.3; O2SAT 97
[2023-11-20] MEDS: HYDROcodone-ACET 5/325MG TAB PO PRN (18:46)
[2023-11-20 19:20] VITALS: BP 106/79; PULSE 79; RESP 18; TEMP 98.7; O2SAT 98
[2023-11-20] MEDS: cefTRIAXone 1GM/50ML D5W 50 ML IV ONE (19:45)
[2023-11-20 20:00] VITALS: PULSE 75; RESP 16; O2SAT 98
[2023-11-20 21:00] VITALS: BP 157/54; PULSE 75; RESP 16; TEMP 98.7; O2SAT 98
[2023-11-20] MEDS: CARVEDILOL 12.5 MG TAB PO SCH (22:08)
[2023-11-20] MEDS: ACETAMINOPHEN 325 MG TAB PO PRN (22:09)
[2023-11-21] VITALS (7 sets, daily range): BP systolic 109–160; BP diastolic 79–86; PULSE 75–87; RESP 16–18; TEMP 97.6–98; O2SAT 93–97
[2023-11-21] MEDS: LEVOTHYROXINE SODIUM 25 MCG TAB PO SCH (06:37)
[2023-11-21 07:30] LABS: Alanine Aminotransferase 12 U/L (7-40); Albumin 4.2 g/dL (3.2-4.8); Alkaline Phosphatase 83 U/L (46-116); Anion Gap 1 (5-15); Aspartate Aminotransferase 16 U/L (13-40); BUN/Creatinine Ratio 21.9 (10.0-20.0); Blood Urea Nitrogen 23 mg/dL (9-23); Calcium 9.8 mg/dL (8.5-10.1); Carbon Dioxide 30 mmol/L (20-30); Chloride 106 mmol/L (98-107); Glucose 87 mg/dL (74-106); Potassium 3.9 mmol/L (3.5-5.1); Sodium 137 mmol/L (136-145)
[2023-11-21 07:31] LABS: Bilirubin, Total 0.6 mg/dL (0.2-1.0); Total Protein 6.8 g/dL (5.7-8.2)
[2023-11-21 08:08] LABS: Basophils # (auto) 0 10 ^3/uL (0-0.2); Basophils % (auto) 0.8 % (0.0-2.0); Eosinophils # (auto) 0.2 10 ^3/uL (0-0.8); Eosinophils % (auto) 3.5 % (0.0-7.0); Hematocrit 34.2 % (36.0-46.0); Hemoglobin 11.1 g/dL (12.2-16.2); Lymphocytes # (auto) 1.6 10 ^3/uL (0.4-5.4); Lymphocytes % (auto) 29.2 % (10.0-50.0); Mean Corpuscular Hgb Conc. 32.5 g/dL (32.0-36.0); Mean Corpuscular Volume 80.1 fL (80.0-100.0); Monocytes # (auto) 0.7 10 ^3/uL (0-1.3); Monocytes % (auto) 12.7 % (0.0-12.0); Neutrophils % (auto) 53.8 % (37.0-80.0); Nucleated Red Blood Cells % 0.1 %; Red Blood Cells 4.27 10^6/uL (4.0-5.20); White Blood Cell 5.6 10^3/uL (4.4-10.8)
[2023-11-21 08:10] LABS: Red Cell Distribution Width 20.6 % (11.8-14.3)
[2023-11-21] MEDS: CITALOPRAM HYDROBR 20 MG TAB PO SCH (08:16)
[2023-11-21] MEDS: buPROPion HCL 75 MG TAB PO SCH (08:17)
[2023-11-21] MEDS: FUROSEMIDE 20 MG TAB PO SCH (08:17)
[2023-11-21] MEDS: PANTOPRAZOLE 40 MG TAB PO SCH (08:18)
[2023-11-21] MEDS: ASPirin-EC 81 mg tab PO SCH (08:18)
[2023-11-21] MEDS: ATORVASTATIN 20 MG TAB PO SCH (08:19)
[2023-11-21] MEDS: LOSARTAN POTASSIUM 50 MG TAB PO SCH (09:09)
[2023-11-21] MEDS: cefTRIAXone 1GM/50ML D5W 50 ML IV SCH (09:30)
[2023-11-21] MEDS ORDERED: ASPirin 81 mg TAB PO SCH (10:00)
[2023-11-21] MEDS: HYDROcodone-ACET 5/325MG TAB PO PRN (12:36)
[2023-11-21] MEDS ORDERED: VANCOMYCIN PER PHARMACY 0 MG IV SCH (14:45)
[2023-11-21] MEDS: VANCOMYCIN 1GM/200ML 200 ML IV ONE (15:29)
[2023-11-22 05:00] VITALS: BP 113/59; PULSE 78; RESP 19; TEMP 97.6; O2SAT 95
[2023-11-22 06:55] LABS: Basophils # (auto) 0.1 10 ^3/uL (0-0.2); Eosinophils # (auto) 0.2 10 ^3/uL (0-0.8); Lymphocytes # (auto) 1.6 10 ^3/uL (0.4-5.4); Monocytes # (auto) 0.8 10 ^3/uL (0-1.3)
[2023-11-22 06:58] LABS: Eosinophils % (auto) 2.4 % (0.0-7.0); Hematocrit 34.3 % (36.0-46.0); Hemoglobin 10.9 g/dL (12.2-16.2); Lymphocytes % (auto) 24.7 % (10.0-50.0); Mean Corpuscular Hemoglobin 25.9 pg (28.0-32.0); Mean Corpuscular Hgb Conc. 31.8 g/dL (32.0-36.0); Mean Corpuscular Volume 81.3 fL (80.0-100.0); Monocytes % (auto) 12.2 % (0.0-12.0); Neutrophils # (auto) 3.8 10 ^3/uL (1.6-8.6); Neutrophils % (auto) 59.7 % (37.0-80.0); Nucleated Red Blood Cells % 0.2 %; Red Blood Cells 4.22 10^6/uL (4.0-5.20); White Blood Cell 6.4 10^3/uL (4.4-10.8)
[2023-11-22 07:15] LABS: Potassium 4.3 mmol/L (3.5-5.1)
[2023-11-22 07:16] LABS: Calcium 9.9 mg/dL (8.5-10.1)
[2023-11-22 07:19] LABS: Albumin 4.2 g/dL (3.2-4.8)
[2023-11-22 07:20] LABS: Red Cell Distribution Width 20.3 % (11.8-14.3)
[2023-11-22 07:21] LABS: BUN/Creatinine Ratio 19.5 (10.0-20.0)
[2023-11-22 07:23] LABS: Phosphorus 3.7 mg/dL (2.4-5.1)
[2023-11-22 08:00] VITALS: BP 129/72; PULSE 78; RESP 16; TEMP 98; O2SAT 99
[2023-11-22 08:51] LABS: Platelet Estimate Adequate
[2023-11-22 08:52] LABS: Anisocytosis Slight
[2023-11-22 12:00] VITALS: BP 110/50; PULSE 77; RESP 15; TEMP 98.3; O2SAT 96
[2023-11-22] MEDS: MORPHINE SULFATE 4 MG/ML SYR/VIAL IV PRN (13:03)
[2023-11-22 16:00] VITALS: BP 110/54; PULSE 75; RESP 16; TEMP 98.6; O2SAT 97
[2023-11-22] MEDS: VANCOMYCIN 1GM/200ML 200 ML IV SCH (16:00)
[2023-11-22] MEDS: MORPHINE SULFATE INJ 2 MG/ml SYRG IM ONE (16:23)
[2023-11-22 20:00] VITALS: PULSE 79; RESP 18; O2SAT 94
[2023-11-22] MEDS: MORPHINE SULFATE 4 MG/ML SYR/VIAL IM PRN (20:33)
[2023-11-22 21:00] VITALS: BP 115/48; PULSE 81; RESP 17; TEMP 97.8; O2SAT 95
[2023-11-23] VITALS (7 sets, daily range): BP systolic 95–135; BP diastolic 54–74; PULSE 75–82; RESP 15–19; TEMP 97.8–98.4; O2SAT 96–99
[2023-11-23 16:28] LABS: COVID19 ANTIGEN SOFIA FIA NEGATIVE (NEGATIVE)
[2023-11-23] MEDS: LIDOCAINE 1% (LOCAL ANESTH.) PF 5ml SDV ID ONE (17:26)
[2023-11-23] MEDS ORDERED: HYDROcodone-ACET 5/325MG TAB PO ONE (21:15)
[2023-11-23] MEDS: SODIUM CHLOR 0.9% PF (SALINE LOCK) 10ML VIAL/SYR IV SCH (21:30)
[2023-11-23] MEDS: HYDROcodone-ACET 5/325MG TAB PO ONE (21:30)
[2023-11-24] VITALS (8 sets, daily range): BP systolic 93–144; BP diastolic 46–75; PULSE 77–83; RESP 16–19; TEMP 97.9–98.6; O2SAT 91–96
[2023-11-24] MEDS ORDERED: LOSA-533 PO (13:19)
[2023-11-24] MEDS ORDERED: LEVO25TA6 PO (13:19)
[2023-11-24] MEDS ORDERED: FERR325T20 PO (13:21)
[2023-11-24] MEDS: HYDROcodone-ACET 5/325MG TAB PO ONE (21:45)
[2023-11-25] VITALS (8 sets, daily range): BP systolic 106–133; BP diastolic 42–96; PULSE 68–80; RESP 16–20; TEMP 97.5–98.2; O2SAT 90–97
[2023-11-25 06:33] LABS: Basophils # (auto) 0.1 10 ^3/uL (0-0.2); Eosinophils # (auto) 0.2 10 ^3/uL (0-0.8); Hemoglobin 10.7 g/dL (12.2-16.2); Monocytes # (auto) 0.8 10 ^3/uL (0-1.3); Red Blood Cells 4.13 10^6/uL (4.0-5.20); White Blood Cell 5.8 10^3/uL (4.4-10.8)
[2023-11-25 06:35] LABS: Basophils % (auto) 1.2 % (0.0-2.0); Hematocrit 33.5 % (36.0-46.0); Lymphocytes # (auto) 1.7 10 ^3/uL (0.4-5.4); Lymphocytes % (auto) 29.7 % (10.0-50.0); Mean Corpuscular Hemoglobin 25.8 pg (28.0-32.0); Mean Corpuscular Hgb Conc. 31.8 g/dL (32.0-36.0); Mean Corpuscular Volume 81.1 fL (80.0-100.0); Monocytes % (auto) 13.3 % (0.0-12.0); Neutrophils % (auto) 52.8 % (37.0-80.0); Nucleated Red Blood Cells % 0.1 %
[2023-11-25 06:36] LABS: Red Cell Distribution Width 20.9 % (11.8-14.3)
[2023-11-25] MEDS: HYDROcodone-ACET 5/325MG TAB PO PRN (13:37)
[2023-11-26] VITALS (8 sets, daily range): BP systolic 108–159; BP diastolic 36–81; PULSE 65–81; RESP 12–18; TEMP 97.5–98.6; O2SAT 91–100
[2023-11-26] MEDS: TEMAZEPAM 15 MG CAP PO ONE (00:37)
[2023-11-26] MEDS: MORPHINE SULFATE INJ 2 MG/ml SYRG IV PRN (12:24)
[2023-11-27] VITALS (7 sets, daily range): BP systolic 98–157; BP diastolic 56–74; PULSE 65–82; RESP 16–20; TEMP 97.4–98.6; O2SAT 91–96
[2023-11-28] VITALS (9 sets, daily range): BP systolic 104–144; BP diastolic 51–89; PULSE 73–83; RESP 16–20; TEMP 97.6–98.5; O2SAT 87–98
[2023-11-28 06:55] LABS: Basophils # (auto) 0.1 10 ^3/uL (0-0.2); Eosinophils # (auto) 0.2 10 ^3/uL (0-0.8); Hemoglobin 10.5 g/dL (12.2-16.2); Lymphocytes # (auto) 1.9 10 ^3/uL (0.4-5.4); Lymphocytes % (auto) 26.7 % (10.0-50.0); Neutrophils # (auto) 3.9 10 ^3/uL (1.6-8.6); Nucleated Red Blood Cells % 0.1 %
[2023-11-28 06:58] LABS: Basophils % (auto) 1.1 % (0.0-2.0); Eosinophils % (auto) 2.4 % (0.0-7.0); Hematocrit 31.9 % (36.0-46.0); Mean Corpuscular Hemoglobin 26.4 pg (28.0-32.0); Mean Corpuscular Volume 80.1 fL (80.0-100.0); Monocytes % (auto) 14.6 % (0.0-12.0); Neutrophils % (auto) 55.2 % (37.0-80.0); Red Blood Cells 3.98 10^6/uL (4.0-5.20); Red Cell Distribution Width 21.3 % (11.8-14.3); White Blood Cell 7.1 10^3/uL (4.4-10.8)
[2023-11-29] VITALS (32 sets, daily range): BP systolic 72–144; BP diastolic 29–107; PULSE 71–86; RESP 12–21; TEMP 97.5–97.8; O2SAT 89–100
[2023-11-29] MEDS: HALOPERIDOL LACTATE 5 MG/ML INJ VIAL IM PRN (13:13)
[2023-11-29] MEDS: HALOPERIDOL LACTATE 5 MG/ML INJ VIAL ONE (13:13)
[2023-11-29] MEDS: SODIUM CHLORIDE 0.9% 500 ML IV ONE ×2 (14:00→15:00)
[2023-11-29] MEDS: PIPERACILLIN-TAZOB 3.375GM 100 ML IV SCH (14:00)
[2023-11-29] MEDS ORDERED: HALOPERIDOL LACTATE 5 MG/ML INJ VIAL IM ONE (16:15)
[2023-11-29 17:36] LABS: Lactic Acid w/Reflex 2.1 mmol/L (0.4-2.0)
[2023-11-29] MEDS: NOREPINEPHRINE 8 MG/250ML KIT 250 ML IV SCH (17:44)
[2023-11-29] MEDS: ONDANSETRON HCL 4 MG/2 ML VIAL IV PRN (23:23)
[2023-11-30] VITALS (35 sets, daily range): BP systolic 86–133; BP diastolic 26–75; PULSE 15–82; RESP 10–21; TEMP 97.6–98.5; O2SAT 90–99
[2023-11-30 05:25] LABS: Basophils # (auto) 0 10 ^3/uL (0-0.2); Lymphocytes # (auto) 1.3 10 ^3/uL (0.4-5.4); Neutrophils # (auto) 2.7 10 ^3/uL (1.6-8.6); Nucleated Red Blood Cells % 0.1 %
[2023-11-30 05:27] LABS: Basophils % (auto) 0.9 % (0.0-2.0); Eosinophils # (auto) 0.2 10 ^3/uL (0-0.8); Hematocrit 32.6 % (36.0-46.0); Mean Corpuscular Hemoglobin 25.2 pg (28.0-32.0); Mean Corpuscular Hgb Conc. 30.8 g/dL (32.0-36.0); Mean Corpuscular Volume 81.9 fL (80.0-100.0); Monocytes # (auto) 0.9 10 ^3/uL (0-1.3); Neutrophils % (auto) 53.1 % (37.0-80.0); Red Blood Cells 3.98 10^6/uL (4.0-5.20); White Blood Cell 5.1 10^3/uL (4.4-10.8)
[2023-11-30 05:38] LABS: Alanine Aminotransferase 14 U/L (7-40); Albumin 4.1 g/dL (3.2-4.8); Alkaline Phosphatase 81 U/L (46-116); Anion Gap 3 (5-15); Aspartate Aminotransferase 16 U/L (13-40); BUN/Creatinine Ratio 23.7 (10.0-20.0); Bilirubin, Total 0.3 mg/dL (0.2-1.0); Blood Urea Nitrogen 28 mg/dL (9-23); Calcium 9.3 mg/dL (8.5-10.1); Carbon Dioxide 28 mmol/L (20-30); Chloride 108 mmol/L (98-107); Glucose 93 mg/dL (74-106); Potassium 4.6 mmol/L (3.5-5.1); Sodium 139 mmol/L (136-145); Total Protein 6.6 g/dL (5.7-8.2)
[2023-11-30 05:40] LABS: Red Cell Distribution Width 20.3 % (11.8-14.3)
[2023-11-30] MEDS ORDERED: ALBUTEROL SULF 2.5 MG/0.5ML(0.5%) NEB SOLN NEB PRN (08:45)
[2023-11-30] MEDS: KETOROLAC TROMETH 30 MG/ML 1ML VIAL IV PRN (10:14)
[2023-11-30] MEDS: VANCOMYCIN 1GM/200ML 200 ML IV SCH ×2 (17:00→21:15)
[2023-12-01] VITALS (12 sets, daily range): BP systolic 116–143; BP diastolic 58–82; PULSE 63–81; RESP 13–20; TEMP 97.8–98.9; O2SAT 90–99
[2023-12-01] MEDS: PIPERACILLIN-TAZOB 3.375GM 100 ML IV SCH (05:21)
[2023-12-02] VITALS (11 sets, daily range): BP systolic 138–163; BP diastolic 59–80; PULSE 67–81; RESP 13–20; TEMP 97.7–98.3; O2SAT 94–100
[2023-12-02] MEDS: CARVEDILOL 12.5 MG TAB PO SCH (06:30)
[2023-12-02 07:09] LABS: Basophils # (auto) 0 10 ^3/uL (0-0.2); Basophils % (auto) 0.2 % (0.0-2.0); Eosinophils # (auto) 0.1 10 ^3/uL (0-0.8); Eosinophils % (auto) 1.1 % (0.0-7.0); Hematocrit 31.1 % (36.0-46.0); Hemoglobin 10.1 g/dL (12.2-16.2); Lymphocytes % (auto) 11.9 % (10.0-50.0); Mean Corpuscular Hemoglobin 26.1 pg (28.0-32.0); Mean Corpuscular Hgb Conc. 32.6 g/dL (32.0-36.0); Mean Corpuscular Volume 80.1 fL (80.0-100.0); Monocytes # (auto) 0.7 10 ^3/uL (0-1.3); Monocytes % (auto) 8.2 % (0.0-12.0); Neutrophils # (auto) 6.9 10 ^3/uL (1.6-8.6); Neutrophils % (auto) 78.6 % (37.0-80.0); Nucleated Red Blood Cells % 0.1 %; Red Blood Cells 3.88 10^6/uL (4.0-5.20); White Blood Cell 8.8 10^3/uL (4.4-10.8)
[2023-12-02 07:10] LABS: Red Cell Distribution Width 20.2 % (11.8-14.3)
[2023-12-03] VITALS (13 sets, daily range): BP systolic 114–149; BP diastolic 56–88; PULSE 76–81; RESP 18–20; TEMP 97.6–98.4; O2SAT 92–100
[2023-12-04] VITALS (10 sets, daily range): BP systolic 127–165; BP diastolic 50–89; PULSE 73–79; RESP 18–19; TEMP 97.6–98.1; O2SAT 92–98
[2023-12-04 06:57] LABS: Basophils # (auto) 0.1 10 ^3/uL (0-0.2); Eosinophils # (auto) 0.2 10 ^3/uL (0-0.8); Hemoglobin 9.6 g/dL (12.2-16.2); Mean Corpuscular Volume 80.2 fL (80.0-100.0); Monocytes # (auto) 0.6 10 ^3/uL (0-1.3)
[2023-12-04 06:59] LABS: Basophils % (auto) 0.9 % (0.0-2.0); Eosinophils % (auto) 3.4 % (0.0-7.0); Hematocrit 30.3 % (36.0-46.0); Lymphocytes # (auto) 1.2 10 ^3/uL (0.4-5.4); Lymphocytes % (auto) 20.4 % (10.0-50.0); Mean Corpuscular Hemoglobin 25.5 pg (28.0-32.0); Mean Corpuscular Hgb Conc. 31.8 g/dL (32.0-36.0); Monocytes % (auto) 10.2 % (0.0-12.0); Neutrophils # (auto) 3.9 10 ^3/uL (1.6-8.6); Neutrophils % (auto) 65.1 % (37.0-80.0); Red Blood Cells 3.78 10^6/uL (4.0-5.20); White Blood Cell 6.1 10^3/uL (4.4-10.8)
[2023-12-04 07:04] LABS: Red Cell Distribution Width 20.4 % (11.8-14.3)
[2023-12-04] MEDS: DOCUSATE SOD 100 MG CAP PO PRN (08:38)
[2023-12-04] MEDS: PIPERACILLIN-TAZOB 3.375GM 100 ML IV SCH (21:46)
[2023-12-05 01:00] VITALS: BP 160/49; PULSE 77; RESP 19; TEMP 98; O2SAT 93
== END 2023-12-05 01:30 | disposition short-term general hospital (02) | DRG 862 ==
LOC: EDBD 11:53 → ER 11:53 → TELE 16:11 → TELE-WESTW 18:12 → DOU IN ICU 11-29 16:58 → ICU CENTRL 11-29 20:01 → TELE-WESTW 11-30 13:00
PROVIDERS: ADMIT Family Medicine; ATTEND Family Medicine
PROC: 02HV33Z Insertion of Infusion Device into Superior Vena Cava, Percutaneous Approach (ICD-10-PCS; principal; 2023-11-23)
PROC: B548ZZA Ultrasonography of Superior Vena Cava, Guidance (ICD-10-PCS; 2023-11-23)
DX: T81.40XA Infection following a procedure, unspecified, initial encounter (principal); I50.43 Acute on chronic combined systolic (congestive) and diastolic (congestive) heart failure; I95.9 Hypotension, unspecified; J96.21 Acute and chronic respiratory failure with hypoxia; L03.313 Cellulitis of chest wall; I48.20 Chronic atrial fibrillation, unspecified; J44.1 Chronic obstructive pulmonary disease with (acute) exacerbation; F03.911 Unspecified dementia, unspecified severity, with agitation; G89.18 Other acute postprocedural pain; C55 Malignant neoplasm of uterus, part unspecified; E03.9 Hypothyroidism, unspecified; I25.10 Atherosclerotic heart disease of native coronary artery without angina pectoris; G47.30 Sleep apnea, unspecified; I11.0 Hypertensive heart disease with heart failure; E78.00 Pure hypercholesterolemia, unspecified; F10.20 Alcohol dependence, uncomplicated; Z20.822 Contact with and (suspected) exposure to COVID-19; F17.210 Nicotine dependence, cigarettes, uncomplicated; Y83.1 Surgical operation with implant of artificial internal device as the cause of abnormal reaction of the patient, or of later complication, without mention of misadventure at the time of the procedure; I25.2 Old myocardial infarction; Z90.710 Acquired absence of both cervix and uterus; Z86.73 Personal history of transient ischemic attack (TIA), and cerebral infarction without residual deficits; Z88.2 Allergy status to sulfonamides; Z98.61 Coronary angioplasty status; Z90.49 Acquired absence of other specified parts of digestive tract; Z80.3 Family history of malignant neoplasm of breast; Z79.899 Other long term (current) drug therapy; Z56.0 Unemployment, unspecified; Z95.810 Presence of automatic (implantable) cardiac defibrillator; Y90.9 Presence of alcohol in blood, level not specified; Y92.89 Other specified places as the place of occurrence of the external cause
CPT/HCPCS: 36415; 36569; 71045; 71046; 76604; 80048; 80053; 80069; 80202; 82565; 83605; 83690; 83735; 84484; 85025; 85610; 87040; 87077; 87081; 87086; 87186; 87426; 93005; 93306; G0378; J1885; J2405; J2543

== ENCOUNTER 2023-12-16 18:31 | Inpatient (IN) | payer OTHER, MEDICAID ==
[~2023-12-16] VITALS: Ht 152.4 cm; Wt 71.5 kg
[~2023-12-16 18:31] MED LIST changes: +FERR325T20 PO; -LEV25T PO; +LEVO25TA6 PO; +LOSA-533 PO; -LOSA-534 PO
[2023-12-17] VITALS (12 sets, daily range): BP systolic 113–178; BP diastolic 41–89; PULSE 56–80; RESP 18–20; TEMP 97.4–98; O2SAT 91–98
[2023-12-17] MEDS ORDERED: NITROGLYCERIN 0.4 MG SL TAB SL PRN (04:00)
[2023-12-17] MEDS ORDERED: MORPHINE SULFATE INJ 2 MG/ml SYRG IV PRN (04:00)
[2023-12-17] MEDS ORDERED: ALBUTEROL SULF 2.5 MG/0.5ML(0.5%) NEB SOLN NEB PRN (06:30)
[2023-12-17 07:07] LABS: Alanine Aminotransferase 476 U/L (7-40); Albumin 3.4 g/dL (3.2-4.8); Alkaline Phosphatase 109 U/L (46-116); Anion Gap 11 (5-15); Aspartate Aminotransferase 119 U/L (13-40); BUN/Creatinine Ratio 4.3 (10.0-20.0); Blood Urea Nitrogen 24 mg/dL (9-23); Calcium 9.3 mg/dL (8.5-10.1); Carbon Dioxide 23 mmol/L (20-30); Chloride 100 mmol/L (98-107); Glucose 103 mg/dL (74-106); Potassium 4.4 mmol/L (3.5-5.1); Sodium 134 mmol/L (136-145)
[2023-12-17 07:08] LABS: Bilirubin, Total 1.3 mg/dL (0.2-1.0); Total Protein 6.2 g/dL (5.7-8.2)
[2023-12-17] MEDS: amLODIPine BESYLATE 5 MG TAB PO SCH (09:48)
[2023-12-17] MEDS: FUROSEMIDE 20 MG TAB PO SCH (09:49)
[2023-12-17] MEDS: ceFAZolin 1GM/50ML 50 ML IV SCH (09:51)
[2023-12-17 10:04] LABS: Basophils # (auto) 0 10 ^3/uL (0-0.2); Basophils % (auto) 0.6 % (0.0-2.0); Eosinophils # (auto) 0.3 10 ^3/uL (0-0.8); Eosinophils % (auto) 3.4 % (0.0-7.0); Hematocrit 29.3 % (36.0-46.0); Hemoglobin 8.7 g/dL (12.2-16.2); Lymphocytes # (auto) 0.9 10 ^3/uL (0.4-5.4); Lymphocytes % (auto) 10.7 % (10.0-50.0); Mean Corpuscular Hemoglobin 28.3 pg (28.0-32.0); Mean Corpuscular Hgb Conc. 29.9 g/dL (32.0-36.0); Mean Corpuscular Volume 94.9 fL (80.0-100.0); Monocytes # (auto) 1.5 10 ^3/uL (0-1.3); Monocytes % (auto) 17.6 % (0.0-12.0); Neutrophils # (auto) 5.8 10 ^3/uL (1.6-8.6); Neutrophils % (auto) 67.7 % (37.0-80.0); Nucleated Red Blood Cells % 0.3 %; Red Blood Cells 3.09 10^6/uL (4.0-5.20); White Blood Cell 8.6 10^3/uL (4.4-10.8)
[2023-12-17 10:05] LABS: Red Cell Distribution Width 26.3 % (11.8-14.3)
[2023-12-17 11:05] LABS: Platelet Estimate Decreased
[2023-12-17 15:22] LABS: Magnesium 1.8 mg/dL (1.6-2.6)
[2023-12-17 15:23] LABS: Phosphorus 4.6 mg/dL (2.4-5.1)
[2023-12-17] MEDS: LORazepam 2MG/ML-1ML VIAL IV PRN (16:35)
[2023-12-17] MEDS: ATORVASTATIN 20 MG TAB PO SCH (22:18)
[2023-12-18] VITALS (10 sets, daily range): BP systolic 99–140; BP diastolic 45–64; PULSE 59–93; RESP 18–20; TEMP 97.5–98; O2SAT 93–98
[2023-12-18] MEDS: LEVOTHYROXINE SODIUM 25 MCG TAB PO SCH (04:46)
[2023-12-18 06:43] LABS: Basophils # (auto) 0 10 ^3/uL (0-0.2); Eosinophils # (auto) 0.2 10 ^3/uL (0-0.8); Hemoglobin 7.3 g/dL (12.2-16.2); Nucleated Red Blood Cells % 0.1 %; Red Blood Cells 2.55 10^6/uL (4.0-5.20); White Blood Cell 7.3 10^3/uL (4.4-10.8)
[2023-12-18 06:47] LABS: Basophils % (auto) 0.5 % (0.0-2.0); Eosinophils % (auto) 2.7 % (0.0-7.0); Hematocrit 22.8 % (36.0-46.0); Lymphocytes # (auto) 0.8 10 ^3/uL (0.4-5.4); Lymphocytes % (auto) 11.2 % (10.0-50.0); Mean Corpuscular Hemoglobin 28.8 pg (28.0-32.0); Mean Corpuscular Hgb Conc. 32.1 g/dL (32.0-36.0); Mean Corpuscular Volume 89.7 fL (80.0-100.0); Monocytes # (auto) 1.5 10 ^3/uL (0-1.3); Monocytes % (auto) 21.2 % (0.0-12.0); Neutrophils # (auto) 4.7 10 ^3/uL (1.6-8.6); Neutrophils % (auto) 64.4 % (37.0-80.0); Red Cell Distribution Width 26.1 % (11.8-14.3)
[2023-12-18 06:52] LABS: Alanine Aminotransferase 232 U/L (7-40); Alkaline Phosphatase 85 U/L (46-116); Calcium 8.9 mg/dL (8.7-10.4); Carbon Dioxide 23 mmol/L (20-30); Chloride 101 mmol/L (98-107); Glucose 98 mg/dL (74-106); Potassium 4.5 mmol/L (3.5-5.1); Sodium 133 mmol/L (136-145)
[2023-12-18 06:53] LABS: Albumin 2.9 g/dL (3.2-4.8); Anion Gap 9 (5-15); Aspartate Aminotransferase 91 U/L (13-40); BUN/Creatinine Ratio 4.1 (10.0-20.0); Bilirubin, Total 0.9 mg/dL (0.2-1.0); Blood Urea Nitrogen 28 mg/dL (9-23); Total Protein 5.5 g/dL (5.7-8.2)
[2023-12-18] MEDS ORDERED: VANCOMYCIN PER PHARMACY 0 MG IV SCH (11:30)
[2023-12-18] MEDS: VANCOMYCIN 1GM/200ML 200 ML IV ONE (12:17)
[2023-12-18] MEDS: OXYCODONE W/ ACETAMINOPHEN 5/325MG TABLET PO PRN (16:25)
[2023-12-18] MEDS ORDERED: DOPamine 1600MCG/ML D5W 250 ML IV SCH (16:30)
[2023-12-18 18:04] LABS: Urine Bacteria FEW /hpf (None Seen); Urine Blood 2+ /uL (Negative); Urine Clarity Turbid (Clear); Urine Color Light-Yellow (Yellow); Urine Protein, UAD 2+ (Negative); Urine Specific Gravity 1.009 (1.001-1.035); Urine Urobilinogen Normal (Negative); Urine WBC 156 /hpf (0 - 5); Urine WBC Clumps PRESENT /hpf (None Seen); Urine pH 6.5 (5.0-9.0)
[2023-12-18 18:19] LABS: Creatinine, Urine 52.87 mg/dL (30.0-125.0); Creatinine, Urine 53.06 mg/dL (30.0-125.0); Urine Protein/Creatinine Ratio 3.77
[2023-12-18] MEDS: DOPamine 1600MCG/ML D5W 250 ML IV SCH (21:40)
[2023-12-19] VITALS (11 sets, daily range): BP systolic 130–149; BP diastolic 46–80; PULSE 64–85; RESP 16–20; TEMP 97.2–97.6; O2SAT 93–98
[2023-12-19 06:49] LABS: Hematocrit 24.1 % (36.0-46.0); Mean Corpuscular Hemoglobin 28.8 pg (28.0-32.0); Mean Corpuscular Hgb Conc. 32.6 g/dL (32.0-36.0); Mean Corpuscular Volume 88.3 fL (80.0-100.0)
[2023-12-19 06:51] LABS: Hemoglobin 7.8 g/dL (12.2-16.2); Red Blood Cells 2.72 10^6/uL (4.0-5.20); White Blood Cell 7.9 10^3/uL (4.4-10.8)
[2023-12-19 07:13] LABS: Red Cell Distribution Width 25.3 % (11.8-14.3)
[2023-12-19 07:14] LABS: Basophils % (manual) 0 (0.0-2.0); Blast Cells 0; Metamyelocytes % 0; Myelocytes % 0; Promyelocytes % 0; Reactive Lymphocytes 0
[2023-12-19 07:17] LABS: Alanine Aminotransferase 102 U/L (7-40); Alkaline Phosphatase 92 U/L (46-116); Anion Gap 12 (5-15); BUN/Creatinine Ratio 5.2 (10.0-20.0); Calcium 9.1 mg/dL (8.7-10.4); Carbon Dioxide 22 mmol/L (20-30); Chloride 98 mmol/L (98-107); Glucose 113 mg/dL (74-106); Potassium 4.5 mmol/L (3.5-5.1); Sodium 132 mmol/L (136-145)
[2023-12-19 07:18] LABS: Albumin 3.2 g/dL (3.2-4.8); Aspartate Aminotransferase 75 U/L (13-40); Bilirubin, Total 0.8 mg/dL (0.2-1.0); Total Protein 6.2 g/dL (5.7-8.2)
[2023-12-19 07:24] LABS: Blood Urea Nitrogen 41 mg/dL (9-23)
[2023-12-19 08:57] LABS: Band Neutrophils % (manual) 1; Eosinophils % (manual) 4 (0-7); Lymphocytes % (manual) 16 (10.0-50.0); Monocytes % (manual) 15 (0-12)
[2023-12-19 08:58] LABS: Platelet Estimate Decreased
[2023-12-19] MEDS: SODIUM CHL 0.9% 1000 ML BAG XX ONE (11:30)
[2023-12-19] MEDS: HYDROmorphone HCL 2 MG TAB PO SCH (12:00)
[2023-12-19] MEDS: EPOETIN ALFA-EPBX 10,000 UNIT/1ML VIAL SC ONE (21:06)
[2023-12-19] MEDS: QUEtiapine FUMARATE 25 MG TAB PO SCH (22:15)
[2023-12-19] MEDS: LINEZOLID 600MG/300ML 300 ML IV SCH (22:15)
[2023-12-20] VITALS (9 sets, daily range): BP systolic 111–141; BP diastolic 38–59; PULSE 63–79; RESP 14–20; TEMP 97.8–98.9; O2SAT 90–94
[2023-12-20 06:35] LABS: Alanine Aminotransferase 55 U/L (7-40); Alkaline Phosphatase 96 U/L (46-116); Anion Gap 13 (5-15); Blood Urea Nitrogen 37 mg/dL (9-23); Calcium 9.2 mg/dL (8.5-10.1); Carbon Dioxide 21 mmol/L (20-30); Chloride 97 mmol/L (98-107); Glucose 104 mg/dL (74-106); Potassium 4.4 mmol/L (3.5-5.1); Sodium 131 mmol/L (136-145)
[2023-12-20 06:36] LABS: Albumin 3.3 g/dL (3.2-4.8); Aspartate Aminotransferase 52 U/L (13-40); Bilirubin, Total 0.8 mg/dL (0.2-1.0); Total Protein 6.1 g/dL (5.7-8.2)
[2023-12-20 06:38] LABS: BUN/Creatinine Ratio 4.3 (10.0-20.0)
[2023-12-20 06:44] LABS: Hemoglobin 8.1 g/dL (12.2-16.2)
[2023-12-20 06:46] LABS: Hematocrit 25.8 % (36.0-46.0); Mean Corpuscular Hemoglobin 29.3 pg (28.0-32.0); Mean Corpuscular Hgb Conc. 31.6 g/dL (32.0-36.0); Mean Corpuscular Volume 92.6 fL (80.0-100.0); Red Blood Cells 2.78 10^6/uL (4.0-5.20); White Blood Cell 8.2 10^3/uL (4.4-10.8)
[2023-12-20 07:20] LABS: Red Cell Distribution Width 25.7 % (11.8-14.3)
[2023-12-20 07:21] LABS: Band Neutrophils % (manual) 0; Basophils % (manual) 0 (0.0-2.0); Blast Cells 0; Metamyelocytes % 0; Myelocytes % 0; Promyelocytes % 0; Reactive Lymphocytes 0
[2023-12-20 08:58] LABS: Anisocytosis Slight; Eosinophils % (manual) 2 (0-7); Lymphocytes % (manual) 16 (10.0-50.0); Monocytes % (manual) 20 (0-12); Platelet Estimate Decreased
[2023-12-20] MEDS ORDERED: buPROPion HCL 100 MG TAB PO SCH (10:00)
[2023-12-21] VITALS (11 sets, daily range): BP systolic 94–142; BP diastolic 40–76; PULSE 56–100; RESP 12–18; TEMP 97.4–98.2; O2SAT 93–98
[2023-12-21 10:53] LABS: Basophils # (auto) 0.1 10 ^3/uL (0-0.2); Eosinophils # (auto) 0.2 10 ^3/uL (0-0.8); Eosinophils % (auto) 4.2 % (0.0-7.0); Hematocrit 24.5 % (36.0-46.0); Hemoglobin 7.9 g/dL (12.2-16.2); Lymphocytes # (auto) 0.8 10 ^3/uL (0.4-5.4); Lymphocytes % (auto) 14.3 % (10.0-50.0); Mean Corpuscular Hemoglobin 28.3 pg (28.0-32.0); Mean Corpuscular Hgb Conc. 32.4 g/dL (32.0-36.0); Mean Corpuscular Volume 87.3 fL (80.0-100.0); Monocytes # (auto) 1.3 10 ^3/uL (0-1.3); Monocytes % (auto) 22.5 % (0.0-12.0); Neutrophils # (auto) 3.4 10 ^3/uL (1.6-8.6); Nucleated Red Blood Cells % 0.1 %; Red Blood Cells 2.81 10^6/uL (4.0-5.20); Red Cell Distribution Width 23.2 % (11.8-14.3); White Blood Cell 5.8 10^3/uL (4.4-10.8)
[2023-12-21 11:04] LABS: Alanine Aminotransferase 37 U/L (7-40); Alkaline Phosphatase 87 U/L (46-116); Calcium 9.2 mg/dL (8.7-10.4); Carbon Dioxide 23 mmol/L (20-30); Chloride 97 mmol/L (98-107); Glucose 123 mg/dL (74-106)
[2023-12-21 11:05] LABS: Anion Gap 12 (5-15); Aspartate Aminotransferase 34 U/L (13-40); BUN/Creatinine Ratio 5.9 (10.0-20.0); Bilirubin, Total 0.7 mg/dL (0.2-1.0); Potassium 4.3 mmol/L (3.5-5.1); Sodium 132 mmol/L (136-145)
[2023-12-21 11:07] LABS: Blood Urea Nitrogen 53 mg/dL (9-23); INR 1.25 (0.9-1.15)
[2023-12-21] MEDS: LIDOCAINE 2%HCL (LOCAL ANESTH.) INJ 20ML MDV ONE (12:02)
[2023-12-21] MEDS: fentaNYL CITRATE 100 MCG/2 ML VL ONE (12:21)
[2023-12-21] MEDS: MIDAZOLAM HCL 2MG/2ML 2ml VIAL (1mg/ml) ONE (12:21)
[2023-12-21] MEDS: HEPARIN SODIUM (PORCINE) 5000 UNITS/ML 1ML VIAL ONE (13:04)
[2023-12-21 17:25] LABS: Hepatitis C Antibody Reactive (Negative)
[2023-12-22] VITALS (8 sets, daily range): BP systolic 111–149; BP diastolic 49–94; PULSE 69–89; RESP 18–20; TEMP 97.8–98.6; O2SAT 90–100
[2023-12-22 03:44] LABS: Hepatitis B Surface Antigen Negative (Negative)
[2023-12-22] MEDS ORDERED: SODIUM CHL 0.9% 1000 ML BAG XX ONE (07:00)
[2023-12-22 10:10] LABS: Basophils # (auto) 0.1 10 ^3/uL (0-0.2); Eosinophils # (auto) 0.3 10 ^3/uL (0-0.8); Hemoglobin 8.3 g/dL (12.2-16.2); Monocytes # (auto) 1.3 10 ^3/uL (0-1.3); Neutrophils # (auto) 3.5 10 ^3/uL (1.6-8.6)
[2023-12-22 10:15] LABS: Basophils % (auto) 0.9 % (0.0-2.0); Eosinophils % (auto) 4.8 % (0.0-7.0); Hematocrit 25.3 % (36.0-46.0); Lymphocytes # (auto) 0.9 10 ^3/uL (0.4-5.4); Lymphocytes % (auto) 14.6 % (10.0-50.0); Mean Corpuscular Hemoglobin 28.2 pg (28.0-32.0); Mean Corpuscular Hgb Conc. 32.8 g/dL (32.0-36.0); Mean Corpuscular Volume 86.1 fL (80.0-100.0); Neutrophils % (auto) 58.1 % (37.0-80.0); Red Blood Cells 2.94 10^6/uL (4.0-5.20)
[2023-12-22 10:27] LABS: Alanine Aminotransferase 30 U/L (7-40); Albumin 3.1 g/dL (3.2-4.8); Alkaline Phosphatase 89 U/L (46-116); Anion Gap 10 (5-15); Aspartate Aminotransferase 30 U/L (13-40); BUN/Creatinine Ratio 6.3 (10.0-20.0); Blood Urea Nitrogen 55 mg/dL (9-23); Calcium 9.3 mg/dL (8.5-10.1); Carbon Dioxide 25 mmol/L (20-30); Chloride 98 mmol/L (98-107); Glucose 122 mg/dL (74-106); Potassium 3.8 mmol/L (3.5-5.1); Sodium 133 mmol/L (136-145)
[2023-12-22 10:28] LABS: Bilirubin, Total 0.7 mg/dL (0.2-1.0)
[2023-12-22 10:36] LABS: Monocytes % (auto) 21.6 % (0.0-12.0); Red Cell Distribution Width 22.8 % (11.8-14.3)
[2023-12-22] MEDS: EPOETIN ALFA-EPBX 10,000 UNIT/1ML VIAL SC ONE (21:07)
[2023-12-23] VITALS (8 sets, daily range): BP systolic 101–165; BP diastolic 53–78; PULSE 80–123; RESP 17–21; TEMP 97.9–98.6; O2SAT 94–100
[2023-12-23 07:11] LABS: Hemoglobin 8.3 g/dL (12.2-16.2); White Blood Cell 5.8 10^3/uL (4.4-10.8)
[2023-12-23 07:21] LABS: Hematocrit 25.1 % (36.0-46.0); Mean Corpuscular Hemoglobin 28.6 pg (28.0-32.0); Mean Corpuscular Hgb Conc. 32.9 g/dL (32.0-36.0); Mean Corpuscular Volume 86.9 fL (80.0-100.0); Red Blood Cells 2.89 10^6/uL (4.0-5.20)
[2023-12-23 07:23] LABS: Red Cell Distribution Width 22.3 % (11.8-14.3)
[2023-12-23 07:24] LABS: Band Neutrophils % (manual) 0; Basophils % (manual) 0 (0.0-2.0); Blast Cells 0; Metamyelocytes % 0; Myelocytes % 0; Promyelocytes % 0; Reactive Lymphocytes 0
[2023-12-23 07:46] LABS: Alanine Aminotransferase 25 U/L (7-40); Albumin 3.2 g/dL (3.2-4.8); Alkaline Phosphatase 88 U/L (46-116); Anion Gap 10 (5-15); Aspartate Aminotransferase 31 U/L (13-40); BUN/Creatinine Ratio 5.7 (10.0-20.0); Bilirubin, Total 0.8 mg/dL (0.2-1.0); Calcium 9.2 mg/dL (8.5-10.1); Carbon Dioxide 27 mmol/L (20-30); Chloride 101 mmol/L (98-107); Glucose 93 mg/dL (74-106); Potassium 3.7 mmol/L (3.5-5.1); Sodium 138 mmol/L (136-145); Total Protein 6.2 g/dL (5.7-8.2)
[2023-12-23 07:56] LABS: Blood Urea Nitrogen 34 mg/dL (9-23)
[2023-12-23 08:31] LABS: Eosinophils % (manual) 4 (0-7); Hypochromia Slight; Lymphocytes % (manual) 21 (10.0-50.0); Monocytes % (manual) 21 (0-12); Platelet Estimate Decreased
[2023-12-23 08:32] LABS: Anisocytosis Slight; Stomatocytes Few
[2023-12-23] MEDS: KETOROLAC TROMETH 30 MG/ML 1ML VIAL IV PRN (17:26)
[2023-12-23] MEDS: cloNIDine HCL 0.1 MG TAB PO PRN (17:26)
[2023-12-23] MEDS: DAPTOmycin 500 MG in SODIUM CHL 0.9% 50 ML IV SCH (18:57)
[2023-12-24] VITALS (8 sets, daily range): BP systolic 92–141; BP diastolic 40–88; PULSE 75–118; RESP 18–20; TEMP 97.8–98.7; O2SAT 93–97
[2023-12-24 09:29] LABS: Hepatitis B Surface Antigen Negative (Negative)
[2023-12-24 09:50] LABS: Hepatitis A Ab IgM Negative; Hepatitis B Core IgM Negative
[2023-12-24 11:38] LABS: Hepatitis C Antibody Reactive (Negative)
[2023-12-24] MEDS: OXYCODONE W/ ACETAMINOPHEN 5/325MG TABLET PO PRN (12:23)
[2023-12-24 12:56] LABS: Basophils # (auto) 0 10 ^3/uL (0-0.2); Basophils % (auto) 0.7 % (0.0-2.0); Eosinophils # (auto) 0.3 10 ^3/uL (0-0.8); Hematocrit 27.4 % (36.0-46.0); Hemoglobin 8.8 g/dL (12.2-16.2); Lymphocytes # (auto) 0.6 10 ^3/uL (0.4-5.4); Lymphocytes % (auto) 17.8 % (10.0-50.0); Mean Corpuscular Hemoglobin 28.3 pg (28.0-32.0); Mean Corpuscular Hgb Conc. 32.1 g/dL (32.0-36.0); Monocytes # (auto) 0.6 10 ^3/uL (0-1.3); Monocytes % (auto) 16.3 % (0.0-12.0); Neutrophils # (auto) 2.1 10 ^3/uL (1.6-8.6); Neutrophils % (auto) 58.2 % (37.0-80.0); Nucleated Red Blood Cells % 0.2 %; Red Blood Cells 3.12 10^6/uL (4.0-5.20); Red Cell Distribution Width 22.7 % (11.8-14.3); White Blood Cell 3.6 10^3/uL (4.4-10.8)
[2023-12-24 13:14] LABS: Alanine Aminotransferase 20 U/L (7-40); Albumin 3.1 g/dL (3.2-4.8); Alkaline Phosphatase 84 U/L (46-116); Anion Gap 8 (5-15); Aspartate Aminotransferase 35 U/L (13-40); BUN/Creatinine Ratio 6.5 (10.0-20.0); Blood Urea Nitrogen 34 mg/dL (9-23); Calcium 8.9 mg/dL (8.5-10.1); Carbon Dioxide 28 mmol/L (20-30); Chloride 102 mmol/L (98-107); Glucose 159 mg/dL (74-106); Potassium 3.1 mmol/L (3.5-5.1); Sodium 138 mmol/L (136-145)
[2023-12-24 13:15] LABS: Bilirubin, Total 0.7 mg/dL (0.2-1.0); Total Protein 6.1 g/dL (5.7-8.2)
[2023-12-24] MEDS ORDERED: ALBUMIN 25% 100 ML IV ONE (14:32)
[2023-12-25] VITALS (8 sets, daily range): BP systolic 107–145; BP diastolic 47–63; PULSE 90–117; RESP 16–19; TEMP 97.9–98.3; O2SAT 92–98
[2023-12-25 12:15] LABS: Alanine Aminotransferase 17 U/L (7-40); Alkaline Phosphatase 67 U/L (46-116); Anion Gap 6 (5-15); Aspartate Aminotransferase 31 U/L (13-40); Bilirubin, Total 0.6 mg/dL (0.2-1.0); Blood Urea Nitrogen 16 mg/dL (9-23); Calcium 8.5 mg/dL (8.5-10.1); Carbon Dioxide 27 mmol/L (20-30); Chloride 104 mmol/L (98-107); Glucose 91 mg/dL (74-106); Potassium 3.2 mmol/L (3.5-5.1); Sodium 137 mmol/L (136-145); Total Protein 5.5 g/dL (5.7-8.2)
[2023-12-25 12:16] LABS: Hematocrit 22.1 % (36.0-46.0); Hemoglobin 7.1 g/dL (12.2-16.2); Mean Corpuscular Hemoglobin 28.8 pg (28.0-32.0); Mean Corpuscular Hgb Conc. 32.1 g/dL (32.0-36.0); Mean Corpuscular Volume 89.8 fL (80.0-100.0); Red Blood Cells 2.46 10^6/uL (4.0-5.20); White Blood Cell 4.1 10^3/uL (4.4-10.8)
[2023-12-25 12:17] LABS: Red Cell Distribution Width 22.3 % (11.8-14.3)
[2023-12-25 12:20] LABS: Band Neutrophils % (manual) 0; Basophils % (manual) 0 (0.0-2.0); Blast Cells 0; Metamyelocytes % 0; Myelocytes % 0; Promyelocytes % 0; Reactive Lymphocytes 0
[2023-12-25 13:06] LABS: Anisocytosis Slight; Eosinophils % (manual) 7 (0-7); Lymphocytes % (manual) 26 (10.0-50.0); Monocytes % (manual) 20 (0-12); Platelet Estimate Markedly Decreased
[2023-12-26] VITALS (7 sets, daily range): BP systolic 111–157; BP diastolic 59–88; PULSE 91–120; RESP 16–20; TEMP 97–98.3; O2SAT 94–100
[2023-12-26] MEDS: DAPTOmycin 500 MG in SODIUM CHL 0.9% 50 ML IV SCH (10:39)
[2023-12-26 11:51] LABS: Basophils # (auto) 0.1 10 ^3/uL (0-0.2); Basophils % (auto) 1.3 % (0.0-2.0); Eosinophils # (auto) 0.2 10 ^3/uL (0-0.8); Eosinophils % (auto) 6.5 % (0.0-7.0); Hematocrit 22.9 % (36.0-46.0); Hemoglobin 7.4 g/dL (12.2-16.2); Lymphocytes # (auto) 0.9 10 ^3/uL (0.4-5.4); Lymphocytes % (auto) 23.9 % (10.0-50.0); Mean Corpuscular Hemoglobin 28.3 pg (28.0-32.0); Mean Corpuscular Hgb Conc. 32.4 g/dL (32.0-36.0); Mean Corpuscular Volume 87.6 fL (80.0-100.0); Monocytes # (auto) 0.6 10 ^3/uL (0-1.3); Monocytes % (auto) 15.8 % (0.0-12.0); Neutrophils % (auto) 52.5 % (37.0-80.0); Red Blood Cells 2.62 10^6/uL (4.0-5.20); White Blood Cell 3.8 10^3/uL (4.4-10.8)
[2023-12-26 11:57] LABS: Chloride 102 mmol/L (98-107); Potassium 3.2 mmol/L (3.5-5.1); Sodium 139 mmol/L (136-145)
[2023-12-26 11:58] LABS: Anion Gap 7 (5-15); Calcium 9.1 mg/dL (8.7-10.4); Carbon Dioxide 30 mmol/L (20-30)
[2023-12-26 12:03] LABS: BUN/Creatinine Ratio 8.2 (10.0-20.0); Blood Urea Nitrogen 23 mg/dL (9-23); Glucose 84 mg/dL (74-106)
[2023-12-27] VITALS (8 sets, daily range): BP systolic 117–152; BP diastolic 60–82; PULSE 60–103; RESP 17–18; TEMP 97.3–98.3; O2SAT 95–99
[2023-12-27] MEDS ORDERED: ALBUMIN 25% 100 ML IV STA (14:33)
[2023-12-27] MEDS ORDERED: HEPARIN 1,000 UNITS/ml 1ML VIAL IV ONE (14:45)
[2023-12-27] MEDS: ALBUMIN 25% 100 ML IV ONE (15:07)
[2023-12-27 17:17] LABS: Hematocrit 22.5 % (36.0-46.0); Red Blood Cells 2.58 10^6/uL (4.0-5.20)
[2023-12-27 17:19] LABS: Hemoglobin 7.3 g/dL (12.2-16.2); Mean Corpuscular Hemoglobin 28.1 pg (28.0-32.0); Mean Corpuscular Hgb Conc. 32.2 g/dL (32.0-36.0); Mean Corpuscular Volume 87.2 fL (80.0-100.0); White Blood Cell 3.5 10^3/uL (4.4-10.8)
[2023-12-27 17:22] LABS: Red Cell Distribution Width 21.8 % (11.8-14.3)
[2023-12-27 17:24] LABS: Basophils % (manual) 0 (0.0-2.0); Blast Cells 0; Metamyelocytes % 0; Myelocytes % 0; Promyelocytes % 0; Reactive Lymphocytes 0
[2023-12-27 17:46] LABS: Alanine Aminotransferase 16 U/L (7-40); Albumin 3.9 g/dL (3.2-4.8); Alkaline Phosphatase 72 U/L (46-116); Anion Gap 7 (5-15); Aspartate Aminotransferase 27 U/L (13-40); Calcium 9.2 mg/dL (8.7-10.4); Carbon Dioxide 31 mmol/L (20-30); Chloride 104 mmol/L (98-107); Glucose 83 mg/dL (74-106); Magnesium 1.6 mg/dL (1.6-2.6); Potassium 3.6 mmol/L (3.5-5.1); Sodium 142 mmol/L (136-145)
[2023-12-27 17:47] LABS: Total Protein 6.8 g/dL (5.7-8.2)
[2023-12-27 17:48] LABS: Blood Urea Nitrogen 9 mg/dL (9-23)
[2023-12-27 18:13] LABS: Band Neutrophils % (manual) 2; Eosinophils % (manual) 1 (0-7); Large Platelets FEW; Lymphocytes % (manual) 18 (10.0-50.0); Monocytes % (manual) 7 (0-12); Platelet Estimate Decrea; Stomatocytes Few
[2023-12-28 05:00] VITALS: BP 132/69; PULSE 74; RESP 18; TEMP 98.3; O2SAT 97
[2023-12-28 08:00] VITALS: PULSE 80
[2023-12-28 09:00] VITALS: BP 139/74; PULSE 60; RESP 18; TEMP 98; O2SAT 97
[2023-12-28 13:00] VITALS: BP 117/79; PULSE 90; RESP 18; TEMP 98.4; O2SAT 98
[2023-12-28 17:00] VITALS: BP 123/87; PULSE 79; RESP 20; TEMP 97.8; O2SAT 98
[2023-12-28 18:56] LABS: Chloride 103 mmol/L (98-107); Potassium 3.2 mmol/L (3.5-5.1); Sodium 140 mmol/L (136-145)
[2023-12-28 18:57] LABS: Anion Gap 7 (5-15); Calcium 9.2 mg/dL (8.7-10.4); Carbon Dioxide 30 mmol/L (20-30)
[2023-12-28 19:02] LABS: BUN/Creatinine Ratio 7.4 (10.0-20.0); Blood Urea Nitrogen 12 mg/dL (9-23); Glucose 86 mg/dL (74-106)
[2023-12-28] MEDS: DOPamine 1600MCG/ML D5W 250 ML IV SCH ×2 (20:21→22:35)
[2023-12-28 22:00] VITALS: BP 120/65; PULSE 85; RESP 17; TEMP 98.2; O2SAT 94
[2023-12-28] MEDS ORDERED: DOPamine 1600MCG/ML D5W 250 ML IV SCH (22:45)
[2023-12-29] VITALS (7 sets, daily range): BP systolic 126–158; BP diastolic 69–72; PULSE 66–104; RESP 18–20; TEMP 97.9–98.8; O2SAT 98–100
[2023-12-29 05:33] LABS: Chloride 102 mmol/L (98-107); Potassium 3.3 mmol/L (3.5-5.1); Sodium 138 mmol/L (136-145)
[2023-12-29 05:34] LABS: Anion Gap 7 (5-15); Calcium 9.3 mg/dL (8.7-10.4); Carbon Dioxide 29 mmol/L (20-30)
[2023-12-29 05:39] LABS: BUN/Creatinine Ratio 7.6 (10.0-20.0); Blood Urea Nitrogen 13 mg/dL (9-23); Glucose 86 mg/dL (74-106)
[2023-12-30 00:58] LABS: COVID19 ANTIGEN SOFIA FIA NEGATIVE (NEGATIVE)
[2023-12-30 01:00] VITALS: BP 151/51; PULSE 70; RESP 20; TEMP 98.1; O2SAT 98
[2023-12-30 05:00] VITALS: BP 130/57; PULSE 102; RESP 20; TEMP 97.7; O2SAT 94
[2023-12-30] MEDS ORDERED: SODIUM CHL 0.9% 1000 ML BAG XX ONE (07:00)
[2023-12-30 07:11] LABS: Eosinophils # (auto) 0.2 10 ^3/uL (0-0.8); Neutrophils # (auto) 2.9 10 ^3/uL (1.6-8.6)
[2023-12-30 07:15] LABS: Basophils # (auto) 0.1 10 ^3/uL (0-0.2); Eosinophils % (auto) 3.8 % (0.0-7.0); Hematocrit 23.8 % (36.0-46.0); Hemoglobin 7.7 g/dL (12.2-16.2); Lymphocytes # (auto) 1.3 10 ^3/uL (0.4-5.4); Lymphocytes % (auto) 23.5 % (10.0-50.0); Mean Corpuscular Hemoglobin 28.6 pg (28.0-32.0); Mean Corpuscular Hgb Conc. 32.2 g/dL (32.0-36.0); Mean Corpuscular Volume 88.7 fL (80.0-100.0); Monocytes # (auto) 0.9 10 ^3/uL (0-1.3); Monocytes % (auto) 17.2 % (0.0-12.0); Neutrophils % (auto) 54.5 % (37.0-80.0); Nucleated Red Blood Cells % 0.3 %; Red Blood Cells 2.69 10^6/uL (4.0-5.20); White Blood Cell 5.4 10^3/uL (4.4-10.8)
[2023-12-30 07:24] LABS: Chloride 102 mmol/L (98-107); Potassium 2.9 mmol/L (3.5-5.1); Sodium 139 mmol/L (136-145)
[2023-12-30 07:25] LABS: Anion Gap 11 (5-15); Calcium 8.7 mg/dL (8.7-10.4); Carbon Dioxide 26 mmol/L (20-30)
[2023-12-30 07:30] LABS: BUN/Creatinine Ratio 5.4 (10.0-20.0); Blood Urea Nitrogen 8 mg/dL (9-23); Glucose 76 mg/dL (74-106)
[2023-12-30 07:32] LABS: Red Cell Distribution Width 20.8 % (11.8-14.3)
[2023-12-30 08:00] VITALS: PULSE 100; RESP 18
[2023-12-30 09:00] VITALS: BP 137/68; PULSE 99; RESP 18; TEMP 98.1; O2SAT 98
[2023-12-30 13:00] VITALS: BP 129/61; PULSE 122; RESP 19; TEMP 98.3; O2SAT 96
[2023-12-30] MEDS ORDERED: HYDROcodone-ACET 5/325MG TAB PO ONE (14:45)
[2023-12-30 17:00] VITALS: BP 141/59; PULSE 113; RESP 19; TEMP 98.6; O2SAT 96
[2023-12-30] MEDS ORDERED: EPOETIN ALFA-EPBX 10,000 UNIT/1ML VIAL SC ONE (21:00)
== END 2023-12-30 20:52 | DRG 673 ==
LOC: TELE-WESTW 12-17 00:51
PROVIDERS: ADMIT Nurse Practitioner Family; ATTEND Family Medicine
PROC: 0JH63XZ Insertion of Tunneled Vascular Access Device into Chest Subcutaneous Tissue and Fascia, Percutaneous Approach (ICD-10-PCS; principal; 2023-12-21)
PROC: 02H633Z Insertion of Infusion Device into Right Atrium, Percutaneous Approach (ICD-10-PCS; 2023-12-21)
PROC: B5181ZA Fluoroscopy of Superior Vena Cava using Low Osmolar Contrast, Guidance (ICD-10-PCS; 2023-12-21)
PROC: B548ZZA Ultrasonography of Superior Vena Cava, Guidance (ICD-10-PCS; 2023-12-21)
PROC: 5A1D70Z Performance of Urinary Filtration, Intermittent, Less than 6 Hours Per Day (ICD-10-PCS; 2023-12-22)
PROC: 5A1D70Z Performance of Urinary Filtration, Intermittent, Less than 6 Hours Per Day (ICD-10-PCS; 2023-12-24)
PROC: 5A1D70Z Performance of Urinary Filtration, Intermittent, Less than 6 Hours Per Day (ICD-10-PCS; 2023-12-27)
PROC: 5A1D70Z Performance of Urinary Filtration, Intermittent, Less than 6 Hours Per Day (ICD-10-PCS; 2023-12-30)
DX: N17.9 Acute kidney failure, unspecified (principal); I50.33 Acute on chronic diastolic (congestive) heart failure; I42.9 Cardiomyopathy, unspecified; T82.7XXA Infection and inflammatory reaction due to other cardiac and vascular devices, implants and grafts, initial encounter; I13.0 Hypertensive heart and chronic kidney disease with heart failure and stage 1 through stage 4 chronic kidney disease, or unspecified chronic kidney disease; J44.1 Chronic obstructive pulmonary disease with (acute) exacerbation; L03.114 Cellulitis of left upper limb; T82.42XA Displacement of vascular dialysis catheter, initial encounter; R45.851 Suicidal ideations; D63.1 Anemia in chronic kidney disease; E78.00 Pure hypercholesterolemia, unspecified; I48.91 Unspecified atrial fibrillation; N18.9 Chronic kidney disease, unspecified; E03.9 Hypothyroidism, unspecified; I95.9 Hypotension, unspecified; Z20.822 Contact with and (suspected) exposure to COVID-19; G89.4 Chronic pain syndrome; F32.A Depression, unspecified; F29 Unspecified psychosis not due to a substance or known physiological condition; R80.9 Proteinuria, unspecified; D69.6 Thrombocytopenia, unspecified; F03.90 Unspecified dementia, unspecified severity, without behavioral disturbance, psychotic disturbance, mood disturbance, and anxiety; N14.19 Nephropathy induced by other drugs, medicaments and biological substances; I25.10 Atherosclerotic heart disease of native coronary artery without angina pectoris; Y83.1 Surgical operation with implant of artificial internal device as the cause of abnormal reaction of the patient, or of later complication, without mention of misadventure at the time of the procedure; T36.8X5A Adverse effect of other systemic antibiotics, initial encounter; I25.2 Old myocardial infarction; Z86.73 Personal history of transient ischemic attack (TIA), and cerebral infarction without residual deficits; Z88.2 Allergy status to sulfonamides; Z80.3 Family history of malignant neoplasm of breast; Z79.899 Other long term (current) drug therapy; Z56.0 Unemployment, unspecified; Z95.810 Presence of automatic (implantable) cardiac defibrillator; Y92.89 Other specified places as the place of occurrence of the external cause; Z91.51 Personal history of suicidal behavior
CPT/HCPCS: 36415; 36558; 71045; 76775; 77001; 80048; 80053; 80074; 80202; 81001; 82306; 82570; 82962; 83735; 83880; 83970; 84100; 84156; 84300; 85007; 85025; 85027; 85610; 86803; 87040; 87077; 87081; 87186; 87205; 87340; 87426; 90935; 93970; 93971; 97110; 97116; 97163; 97530; 99152; C1894; G0378; J1642; J1885; J2250; P9047

== ENCOUNTER 2024-01-01 15:26 | Inpatient (IN) | payer OTHER, MEDICAID ==
[~2024-01-01] VITALS: Ht 165.1 cm; Wt 68.9 kg
[2024-01-01 17:30] VITALS: BP 119/67; PULSE 78; RESP 17; TEMP 98.2; O2SAT 100
[2024-01-01] MEDS ORDERED: HYDROmorphone HCL 2 MG/ML VL/or syr IV PRN (19:00)
[2024-01-01] MEDS ORDERED: LACTATED RINGER'S 1,000 ML IV SCH (19:15)
[2024-01-01] MEDS ORDERED: VANCOMYCIN PER PHARMACY 0 MG IV SCH (19:15)
[2024-01-01] MEDS ORDERED: DOCUSATE SOD 100 MG CAP PO PRN (19:15)
[2024-01-01 20:11] LABS: Basophils # (auto) 0 10 ^3/uL (0-0.2); Basophils % (auto) 0.8 % (0.0-2.0); Eosinophils # (auto) 0.2 10 ^3/uL (0-0.8); Eosinophils % (auto) 3.5 % (0.0-7.0); Hematocrit 22.5 % (36.0-46.0); Hemoglobin 7.4 g/dL (12.2-16.2); Lymphocytes # (auto) 1.4 10 ^3/uL (0.4-5.4); Lymphocytes % (auto) 25.9 % (10.0-50.0); Mean Corpuscular Hemoglobin 28.4 pg (28.0-32.0); Mean Corpuscular Hgb Conc. 32.9 g/dL (32.0-36.0); Mean Corpuscular Volume 86.3 fL (80.0-100.0); Monocytes # (auto) 0.9 10 ^3/uL (0-1.3); Monocytes % (auto) 16.3 % (0.0-12.0); Neutrophils # (auto) 2.8 10 ^3/uL (1.6-8.6); Neutrophils % (auto) 53.5 % (37.0-80.0); Nucleated Red Blood Cells % 0.2 %; Red Blood Cells 2.61 10^6/uL (4.0-5.20); White Blood Cell 5.3 10^3/uL (4.4-10.8)
[2024-01-01 20:22] LABS: Alanine Aminotransferase 14 U/L (7-40); Albumin 3.8 g/dL (3.2-4.8); Alkaline Phosphatase 84 U/L (46-116); Anion Gap 9 (5-15); Aspartate Aminotransferase 34 U/L (13-40); BUN/Creatinine Ratio 8.3 (10.0-20.0); Blood Urea Nitrogen 13 mg/dL (9-23); CRP High Sensitivity 0.85 mg/dL (<1.0); Calcium 8.6 mg/dL (8.7-10.4); Carbon Dioxide 28 mmol/L (20-30); Chloride 104 mmol/L (98-107); Glucose 93 mg/dL (74-106); Sodium 141 mmol/L (136-145)
[2024-01-01 20:23] LABS: Bilirubin, Total 0.8 mg/dL (0.2-1.0); Total Protein 6.5 g/dL (5.7-8.2)
[2024-01-01 20:28] LABS: INR 1.25 (0.9-1.15)
[2024-01-01] MEDS: HYDROmorphone HCL 2 MG/ML VL/or syr IV PRN (20:47)
[2024-01-01 21:12] LABS: Erythrocyte Sedimentation Rate 14 mm/hr (0-20)
[2024-01-01] MEDS: VANCOMYCIN 1GM/200ML 200 ML IV ONE (21:23)
[2024-01-01] MEDS: PIPERACILLIN-TAZOB 3.375GM 100 ML IV ONE (21:23)
[2024-01-01] MEDS: SODIUM CHLOR 0.9% PF (SALINE LOCK) 10ML VIAL/SYR IV SCH (22:00)
[2024-01-01] MEDS: POTASSIUM EFFERVESENT TAB 25 MEQ PO ONE (23:01)
[2024-01-01 23:02] LABS: % Iron Saturation 7.1 % (15-50)
[2024-01-02] VITALS (8 sets, daily range): BP systolic 108–138; BP diastolic 42–63; PULSE 53–104; RESP 14–17; TEMP 97.4–98.4; O2SAT 93–98
[2024-01-02] MEDS ORDERED: MELATONIN 5 MG TAB ONE (01:16)
[2024-01-02] MEDS: MELATONIN 5 MG TAB PO ONE (01:22)
[2024-01-02] MEDS: LACTATED RINGER'S 1,000 ML IV SCH (01:33)
[2024-01-02 07:03] LABS: Basophils # (auto) 0.1 10 ^3/uL (0-0.2); Eosinophils # (auto) 0.3 10 ^3/uL (0-0.8); Hemoglobin 7.1 g/dL (12.2-16.2); Monocytes # (auto) 0.9 10 ^3/uL (0-1.3); Neutrophils # (auto) 2.7 10 ^3/uL (1.6-8.6)
[2024-01-02 07:06] LABS: Basophils % (auto) 1.4 % (0.0-2.0); Eosinophils % (auto) 5.2 % (0.0-7.0); Lymphocytes # (auto) 1.6 10 ^3/uL (0.4-5.4); Lymphocytes % (auto) 28.2 % (10.0-50.0); Mean Corpuscular Hemoglobin 28.5 pg (28.0-32.0); Mean Corpuscular Hgb Conc. 32.1 g/dL (32.0-36.0); Mean Corpuscular Volume 88.6 fL (80.0-100.0); Monocytes % (auto) 16.6 % (0.0-12.0); Neutrophils % (auto) 48.6 % (37.0-80.0); Nucleated Red Blood Cells % 0.2 %; Red Blood Cells 2.48 10^6/uL (4.0-5.20); White Blood Cell 5.6 10^3/uL (4.4-10.8)
[2024-01-02 07:07] LABS: Anion Gap 8 (5-15); Carbon Dioxide 29 mmol/L (20-30); Chloride 102 mmol/L (98-107); Potassium 3.3 mmol/L (3.5-5.1); Sodium 139 mmol/L (136-145)
[2024-01-02 07:09] LABS: Calcium 8.4 mg/dL (8.7-10.4)
[2024-01-02 07:12] LABS: Red Cell Distribution Width 22.3 % (11.8-14.3)
[2024-01-02 07:13] LABS: BUN/Creatinine Ratio 8.4 (10.0-20.0); Blood Urea Nitrogen 14 mg/dL (9-23); Glucose 89 mg/dL (74-106)
[2024-01-02] MEDS: PIPERACILLIN-TAZOB 3.375GM 100 ML IV SCH (08:57)
[2024-01-02] MEDS: HYDROcodone-ACET 5/325MG TAB PO PRN (23:14)
[2024-01-03 05:00] VITALS: BP 132/75; PULSE 70; RESP 15; TEMP 98; O2SAT 97
[2024-01-03 08:00] VITALS: BP 128/41; PULSE 135; PULSE 76; RESP 18; RESP 20; TEMP 98.1; O2SAT 95; O2SAT 99
[2024-01-03] MEDS: ONDANSETRON HCL 4 MG/2 ML VIAL IV PRN (08:39)
[2024-01-03] MEDS: ACETAMINOPHEN 325 MG TAB PO PRN (08:43)
[2024-01-03 12:00] VITALS: BP 153/70; PULSE 76; RESP 18; TEMP 98; O2SAT 99
[2024-01-03] MEDS: VANCOMYCIN 750mg/150ml 150 ML IV SCH (15:42)
[2024-01-03 16:00] VITALS: BP 143/45; PULSE 77; RESP 20; TEMP 97.7; O2SAT 98
[2024-01-03 19:05] LABS: Basophils # (auto) 0.1 10 ^3/uL (0-0.2); Eosinophils # (auto) 0.4 10 ^3/uL (0-0.8); Mean Corpuscular Hgb Conc. 31.5 g/dL (32.0-36.0); Monocytes # (auto) 0.8 10 ^3/uL (0-1.3); Nucleated Red Blood Cells % 0.2 %; Red Blood Cells 2.55 10^6/uL (4.0-5.20); White Blood Cell 5.2 10^3/uL (4.4-10.8)
[2024-01-03 19:07] LABS: Basophils % (auto) 1.4 % (0.0-2.0); Hematocrit 22.8 % (36.0-46.0); Hemoglobin 7.2 g/dL (12.2-16.2); Lymphocytes # (auto) 1.6 10 ^3/uL (0.4-5.4); Lymphocytes % (auto) 30.1 % (10.0-50.0); Mean Corpuscular Hemoglobin 28.3 pg (28.0-32.0); Mean Corpuscular Volume 89.7 fL (80.0-100.0); Monocytes % (auto) 15.7 % (0.0-12.0); Neutrophils # (auto) 2.3 10 ^3/uL (1.6-8.6); Neutrophils % (auto) 44.8 % (37.0-80.0)
[2024-01-03 19:10] LABS: Red Cell Distribution Width 21.5 % (11.8-14.3)
[2024-01-03 21:00] VITALS: BP 147/45; PULSE 63; RESP 18; TEMP 98.3; O2SAT 92
[2024-01-04] VITALS (8 sets, daily range): BP systolic 114–136; BP diastolic 46–82; PULSE 62–84; RESP 16–19; TEMP 97.6–98.4; O2SAT 94–98
[2024-01-05] VITALS (7 sets, daily range): BP systolic 116–136; BP diastolic 47–99; PULSE 60–79; RESP 17–20; TEMP 97.6–98.5; O2SAT 91–100
[2024-01-06 01:00] VITALS: BP 104/50; PULSE 85; RESP 18; TEMP 97.8; O2SAT 94
[2024-01-06] MEDS ORDERED: DEXTROSE (50%) 50ML SYRG IV ONE (01:00)
[2024-01-06] MEDS ORDERED: EPINEPHrine HCL 1 MG/10 ML SYRG IV ONE (01:00)
[2024-01-06] MEDS: NALOXONE HCL 0.4 MG/ML VIAL ONE (01:03)
== END 2024-01-06 01:01 | DRG 602 ==
LOC: EDUNIT# 16:48 → WEST WING 16:48
PROVIDERS: ADMIT Internal Medicine; ATTEND Internal Medicine
PROC: 5A12012 Performance of Cardiac Output, Single, Manual (ICD-10-PCS; principal; 2024-01-06)
DX: L03.114 Cellulitis of left upper limb (principal); G93.41 Metabolic encephalopathy; I13.0 Hypertensive heart and chronic kidney disease with heart failure and stage 1 through stage 4 chronic kidney disease, or unspecified chronic kidney disease; J96.10 Chronic respiratory failure, unspecified whether with hypoxia or hypercapnia; N18.4 Chronic kidney disease, stage 4 (severe); I48.91 Unspecified atrial fibrillation; I25.10 Atherosclerotic heart disease of native coronary artery without angina pectoris; F17.210 Nicotine dependence, cigarettes, uncomplicated; F03.90 Unspecified dementia, unspecified severity, without behavioral disturbance, psychotic disturbance, mood disturbance, and anxiety; E03.9 Hypothyroidism, unspecified; J44.9 Chronic obstructive pulmonary disease, unspecified; I50.9 Heart failure, unspecified; Y83.1 Surgical operation with implant of artificial internal device as the cause of abnormal reaction of the patient, or of later complication, without mention of misadventure at the time of the procedure; Z95.0 Presence of cardiac pacemaker; Z88.2 Allergy status to sulfonamides; Z88.8 Allergy status to other drugs, medicaments and biological substances; Z99.81 Dependence on supplemental oxygen
CPT/HCPCS: 36415; 73200; 80048; 80053; 80202; 82565; 82728; 83540; 83550; 83605; 85025; 85610; 85652; 86141; 86850; 86900; 86901; 87040; 87081; 92950; G0378; J2405; J2543